=== PATIENT | female | born 1945 | race Hispanic/Latino ===

== ENCOUNTER 2018-06-26 18:22 | Emergency (ER) | payer MEDICARE ==
--- NOTE | 2018-06-26 19:26 | RAD ---
STERNUM TWO VIEWS: History: Fall. Pain. Comparison: None. FINDINGS: No obvious displaced sternal fracture. IMPRESSION: No obvious displaced sternal fracture. POS: [facility]
[2018-06-26 19:34] LABS: #Eosinphils 0.3 thou/uL (0.0-0.7); #Monocytes 0.5 thou/uL (0.11-0.59); #Neutrophils 5.1 thou/uL (1.40-6.50); %Basophils 0.6 % (0.0-1.0); %Eosinophils 3.2 % (0.0-10.0); %Lymphocytes 25.6 % (21.0-51.0); %Monocytes 6.6 % (0.0-10.0); Hemoglobin 13.4 g/dL (12.0-16.0); Mean Corpuscular HGB CONC 35.2 g/dL (32.0-36.0); Mean Corpuscular Hemoglobin 32.1 pg (27.0-31.0); Mean Corpuscular Volume 91.3 fL (78.0-98.0); Mean Platelet Volume 10.9 fL (7.4-10.4); Platelet Count 214 thou/uL (130-400); RBC Distribution Width 11.7 % (11.5-14.5); Red Blood Cell (RBC) Count 4.19 mill/uL (4.20-5.40); White Blood Cell (WBC) Count 7.9 thou/uL (4.8-10.8)
--- NOTE | 2018-06-26 19:52 | RAD ---
CHEST ONE VIEW RIGHT RIBS THREE VIEWS: History: Fall. Pain. FINDINGS: ONE VIEW CHEST: Normal cardiac silhouette. Atherosclerosis of the aorta. Pulmonary vessels and hilum are normal. Cost ophrenic angles are clear. No consolidation or mass. No pneumothorax or osseous abnormalities. RIGHT RIB SERIES: No fracture. No cortical irregularity of periosteal reaction. IMPRESSION: 1. No right rib fracture. 2. No acute cardiopulmonary process. POS: [facility]
[2018-06-26 19:56] LABS: ALT (SGPT) 18 U/L (8-55); AST (SGOT) 14 U/L (5-34); Albumin 4.1 g/dL (3.4-4.8); Alkaline Phosphatase 83 U/L (40-150); Anion Gap 16 mmol/L (10-20); BUN (Urea Nitrogen) 25 mg/dL (9.8-20.1); Bilirubin, Total 0.7 mg/dL (0.2-1.2); Calc. Creatinine Clearance 0 mL/min (70-130); Calcium 10.1 mg/dL (7.8-10.44); Carbon Dioxide 20 mmol/L (23-31); Chloride 104 mmol/L (98-107); Estimated GFR-MDRD 39; Globulin 3.8 g/dL (2.4-3.5); Glucose 357 mg/dL (83-110); Potassium 4.1 mmol/L (3.5-5.1); Protein, Total 7.9 g/dL (6.0-8.3); Sodium 136 mmol/L (136-145)
[2018-06-26 19:59] LABS: CKMB 1.6 ng/mL (0-6.6); Troponin I Less than 0.010 ng/mL (< 0.028)
[2018-06-26] MEDS ORDERED: HYDROcodone/Acetaminophen 10/325 mg Tablet ONE (20:13)
== END 2018-06-26 20:23 | disposition home or self-care (01) ==
LOC: ERS 18:22
DX: S20.211A Contusion of right front wall of thorax, initial encounter (principal); E11.9 Type 2 diabetes mellitus without complications; I10 Essential (primary) hypertension; E78.5 Hyperlipidemia, unspecified; Z79.4 Long term (current) use of insulin; Z79.899 Other long term (current) drug therapy; W01.0XXA Fall on same level from slipping, tripping and stumbling without subsequent striking against object, initial encounter
CPT/HCPCS: 36415; 71120; 80053; 82553; 84484; 85025; 93005

== ENCOUNTER 2018-07-29 15:59 | Emergency (ER) | payer MEDICARE ==
[2018-07-29 16:25] LABS: #Eosinphils 0.2 thou/uL (0.0-0.7); #Lymphocytes 2.5 thou/uL (1.20-3.40); #Monocytes 0.6 thou/uL (0.11-0.59); %Basophils 0.4 % (0.0-1.0); %Eosinophils 1.4 % (0.0-10.0); %Lymphocytes 22.4 % (21.0-51.0); %Monocytes 5.2 % (0.0-10.0); %Neutrophils 70.6 % (42.0-75.0); Hemoglobin 14.9 g/dL (12.0-16.0); Mean Corpuscular HGB CONC 34.2 g/dL (32.0-36.0); Mean Corpuscular Hemoglobin 31.2 pg (27.0-31.0); Mean Corpuscular Volume 91.3 fL (78.0-98.0); Mean Platelet Volume 10.9 fL (7.4-10.4); Platelet Count 228 thou/uL (130-400); RBC Distribution Width 11.7 % (11.5-14.5); Red Blood Cell (RBC) Count 4.77 mill/uL (4.20-5.40); White Blood Cell (WBC) Count 11.3 thou/uL (4.8-10.8)
[2018-07-29] MEDS ORDERED: Ondansetron PF 4 MG/2 ML Vial ONE (16:46)
[2018-07-29] MEDS ORDERED: Ondansetron ODT 4 MG TAB ONE (16:46)
[2018-07-29 16:47] LABS: ALT (SGPT) 16 U/L (8-55); AST (SGOT) 13 U/L (5-34); Albumin 4.4 g/dL (3.4-4.8); Alkaline Phosphatase 102 U/L (40-150); Anion Gap 18 mmol/L (10-20); BUN (Urea Nitrogen) 25 mg/dL (9.8-20.1); Calc. Creatinine Clearance 0 mL/min (70-130); Calcium 10.7 mg/dL (7.8-10.44); Carbon Dioxide 19 mmol/L (23-31); Chloride 103 mmol/L (98-107); Estimated GFR-MDRD 34; Glucose 341 mg/dL (83-110); Potassium 4.1 mmol/L (3.5-5.1); Protein, Total 8.4 g/dL (6.0-8.3); Sodium 136 mmol/L (136-145)
--- NOTE | 2018-07-29 18:17 | RAD ---
CHEST ONE VIEW: 07/29/18 HISTORY: Nausea. Vomiting. COMPARISON: 06/26/18. FINDINGS: Portable upright chest: Normal cardiac silhouette. The pulmonary vessels and hilum are normal. Costophrenic angles are clear. No mass. No consolidation. No pneumothorax or osseous abnormalities. IMPRESSION: No acute cardiopulmonary process. POS: [facility]
[2018-07-29 19:19] LABS: Bilirubin Small (Negative); Blood, Urine Negative (Negative); Clarity CLEAR (Clear); Glucose, Urine (Dipstick) >=1000 mg/dL (Negative); Leukocyte Negative (Negative); Nitrite Negative (Negative); Protein, Urine (Dipstick) 100 mg/dL (Neg-Trace); Specific Gravity, Urine 1.035 (1.002-1.036); Urobilinogen 0.2 mg/dL (0.2-1.0)
[2018-07-29 19:21] LABS: Bacteria/HPF Rare-Few HPF (None Seen); Hyaline Casts/LPF 4-6 HYALINE CAST LPF (0-3 Hyaline); Pathc Cast-AUWi Flag 1.01 (0-2.49); WBC/HPF 21-50 HPF (0-3)
--- NOTE | 2018-07-29 19:31 | CT ---
CT ABDOMEN AND PELVIS WITH IV CONTRAST: 07/29/2018 HISTORY: Abdominal pain, nausea, vomiting, and diarrhea. COMPARISON: None available. FINDINGS: There is mild bibasilar atelectasis and multiple punctate densities, which appear to represent multip le punctate calcified granulomata. There is mild diminished attenuation of the liver, relative to the spleen. While this is overall non specific on a post contrasted exam, this may represent mild fatty infiltration of the liver. Calcified granulomata are seen in the spleen. The common duct is dilated, measuring approximately 1.5 cm. This may be related to reservoir effect, secondary to post cholecystectomy changes, but this is more dilated than typically expected. No grimes creatic head mass is appreciated on this examination. The bilateral adrenal glands, kidneys, and decompressed urinary bladder demonstrate a grossly normal nonenhanced CT appearance. There is evidence of a prior hysterectomy. There is a punctate calcification in the region of the left renal hilum, best seen on the coronal walker ges, and this is felt to be related to vascular calcification, as opposed to a renal calculus. The appendix is not visualized, but there are no secondary signs to suggest appendicitis. Vascular calcifications are seen in the abdominal aorta and involving the iliac arteries. No free fluid, fluid collection, or lymphadenopathy is seen in the abdomen or pelvis. Multilevel degenerative changes are seen in the lower thoracic, as well as lumbar spine, with degener ative changes at the pubic symphysis. IMPRESSION: 1. Mild fatty infiltration of the liver. The liver is also mildly enlarged in craniocaudal dimensio ns, measuring approximately 18 cm. 2. Dilatation of the extrahepatic common duct, likely attributable to reservoir effect from prior ch olecystectomy, but this is more dilated than typically expected, measuring 1.5 cm in diameter. Endos copic retrograde cholangiopancreatography versus magnetic resonance cholangiopancreatography may be h elpful for further evaluation, if clinically indicated. 3. Normal caliber loops of small bowel without evidence of a bowel obstruction. 4. Hysterectomy. 5. Prominent vascular calcifications. POS: [facility]
[2018-07-29] MEDS ORDERED: Acetaminophen 500 MG TAB ONE (20:17)
--- NOTE | 2018-07-29 20:50 | ULT ---
GALLBLADDER ULTRASOUND: 07/29/18 HISTORY: Nausea and vomiting. COMPARISON: None. TECHNIQUE: Utilizing multihertz transducer, sonographic imaging of the right upper quadrant is performed in the longitudinal and transverse plane. FINDINGS: Evaluation is limited by nonfasting state as well as due to body habitus. Suboptimal evaluation of the pancreas. Gallbladder appears to be surgically absent. Increased echogenicity of the liver likely due to hepatic steatosis. Limited evaluation of hepatic ma sses and intrahepatic biliary dilatation. Common bile duct is dilated measuring 1.6 cm. Findings are compatible with reservoir effect in a pat ient who has had a previous cholecystectomy. Grossly, no hydronephrosis. Suboptimal evaluation of the right kidney. Maximum dimension of the right kidney is 11.5 cm. IMPRESSION: 1. Limited evaluation. 2. Dilated common bile duct compatible with patient's history of cholecystectomy with resultant reservoir effect of the common bile duct. POS: [facility]
== END 2018-07-29 21:35 | disposition home or self-care (01) ==
LOC: ERS 15:59
DX: E86.0 Dehydration (principal); N39.0 Urinary tract infection, site not specified; R11.2 Nausea with vomiting, unspecified; E11.9 Type 2 diabetes mellitus without complications; I10 Essential (primary) hypertension; E78.5 Hyperlipidemia, unspecified; Z79.4 Long term (current) use of insulin; Z79.899 Other long term (current) drug therapy
CPT/HCPCS: 36415; 71045; 74177; 76705; 80053; 81003; 81015; 82010; 85025; 87086; 96360; 96361; J2405; Q0162

== ENCOUNTER 2018-10-13 17:10 | Emergency (ER) | payer MEDICARE ==
[2018-10-13 18:43] LABS: Bilirubin Negative (Negative); Blood, Urine Negative (Negative); Clarity CLEAR (Clear); Glucose, Urine (Dipstick) >=1000 mg/dL (Negative); Leukocyte Negative (Negative); Nitrite Negative (Negative); Protein, Urine (Dipstick) Negative (Neg-Trace); Specific Gravity, Urine 1.033 (1.002-1.036); Urobilinogen 0.2 mg/dL (0.2-1.0)
== END 2018-10-13 19:13 | disposition home or self-care (01) ==
LOC: ERS 17:10
DX: N32.89 Other specified disorders of bladder (principal); E11.9 Type 2 diabetes mellitus without complications; I10 Essential (primary) hypertension; E78.5 Hyperlipidemia, unspecified
CPT/HCPCS: 81003; 87086; 99283

== ENCOUNTER 2019-03-28 09:42 | Day surgery (SDC) | payer MEDICARE ==
--- NOTE | 2019-03-27 09:23 | HP ---
Scheduled for surgery, 03/28/2019. HISTORY OF PRESENT ILLNESS: Ms. Gonzalez is a 73-year-old Latin-Martiniquais female G5, P4, A1, x4, with total hysterectomy in the past, who has been experiencing urinary incontinence. She had somewhat of a mixed urinary incontinence picture where she had both urge incontinence and stress incontinence. She had a urinalysis and a urine culture initially showed mild infection which was treated with Macrodantin with subsequent urine cultures being normalized. She has been placed on an anticholinergic, Toviaz 4 mg daily, which has improved her overactive bladder symptoms in control. She is though still plagued by urinary incontinence, which does have a strong stress incontinence component. She underwent a formal urodynamic study in October, showing her to have a postvoid residual which was normal at 25 mL. Her 1st sensation to void was at 2:26 and 2nd was at 2:45. She did leak with cough and Valsalva. During the procedure prior to being initiated on the anticholinergic with the leak, with Valsalva and coughing, she also had leakage, she was not able to control and continued to urinate. She had an excellent urethral pressure profile . She does wear a urinary incontinence pad daily. PAST MEDICAL HISTORY: Noted for diabetes mellitus and chronic hypertension. PAST SURGICAL HISTORY: Complete hysterectomy. She has also had reconstruction of the ankle joint, cholecystectomy, knee replacement, and a colonoscopy. SOCIAL HISTORY: She is a nonsmoker. No excessive alcohol use. ALLERGIES: SHE HAS NO KNOWN DRUG ALLERGIES. CURRENT MEDICATIONS: 1. Citalopram 10 mg tablet daily. 2. Humalog KwikPen subcu sliding scale for diabetes control. 3. She also uses Lantus 40 units subcu at bedtime. 4. Hydrochlorothiazide 25 mg tablet for hypertension. 5. Losartan 50 mg tablet daily. 6. Metformin 850 mg tablet one p.o. b.i.d. 7. She also uses methocarbamol 500 mg tablet t.i.d. p.r.n. back spasms. PHYSICAL EXAMINATION: VITAL SIGNS: The patient's height is 5 feet 4 inches, weight 291, BMI 49, blood pressure 140/82, pulse 80, respirations 18, O2 saturation on room air was 91%. HEENT: Within normal limits. CHEST: Clear to auscultation. HEART: Regular rate and rhythm. S1 and S2 heart sounds. No murmurs, rubs, gallops. ABDOMEN: Obese, soft, nontender. PELVIC: Vulva and vagina, there were no masses. Bladder and urethra had no abnormal discharge or mass. Normal meatus, and bladder was nondistended. Vagina, there was no tenderness or erythema. There was approximately a grade 2 cystocele with hypermobile urethra. Cervix and uterus were surgically absent. Adnexa, nontender with no masses. ASSESSMENT: This is a 73-year-old Latin-Martiniquais female with previous hysterectomy with obesity, with improved urinary incontinence from overactive component with Toviaz, anticholinergic. She has mixed incontinence with confirmation of stress incontinence on formal urodynamic testing. She has a grade 2 cystocele. PLAN: Plan is to proceed with an anterior repair with Advantage Fit TVT with cystoscopy. This is scheduled for March 28, 2019. Risks and benefits of procedure have been discussed in detail. She is set for surgery. Job ID: [id number]
[2019-03-27 11:38] LABS: Hemoglobin 12.8 g/dL (12.0-16.0); Mean Corpuscular HGB CONC 34.6 g/dL (32.0-36.0); Mean Corpuscular Hemoglobin 31.8 pg (27.0-31.0); Mean Corpuscular Volume 91.9 fL (78.0-98.0); Mean Platelet Volume 10.7 fL (7.4-10.4); Platelet Count 214 thou/uL (130-400); RBC Distribution Width 11.8 % (11.5-14.5); Red Blood Cell (RBC) Count 4.02 mill/uL (4.20-5.40); White Blood Cell (WBC) Count 8.7 thou/uL (4.8-10.8)
[2019-03-27 12:03] LABS: ALT (SGPT) 11 U/L (8-55); AST (SGOT) 10 U/L (5-34); Alkaline Phosphatase 64 U/L (40-150); Anion Gap 11 mmol/L (10-20); BUN (Urea Nitrogen) 23 mg/dL (9.8-20.1); Bilirubin, Total 0.9 mg/dL (0.2-1.2); Calc. Creatinine Clearance 0 mL/min (70-130); Calcium 10.2 mg/dL (7.8-10.44); Carbon Dioxide 25 mmol/L (23-31); Chloride 106 mmol/L (98-107); Estimated GFR-MDRD 52; Globulin 3.3 g/dL (2.4-3.5); Glucose 281 mg/dL (83-110); Potassium 4.1 mmol/L (3.5-5.1); Protein, Total 7.3 g/dL (6.0-8.3); Sodium 138 mmol/L (136-145)
[2019-03-28] MEDS ORDERED: Fentanyl 100 MCG/2 ML VIAL ONE (11:47)
[2019-03-28] MEDS ORDERED: Lidocaine 1% w/Epinephrine 1:100K 20 ML VIAL ONE (11:48)
[2019-03-28] MEDS ORDERED: Promethazine HCl 25 MG/ML VIAL IM PRN (13:25)
[2019-03-28] MEDS ORDERED: diphenhydrAMINE 25 MG CAP PO PRN (13:25)
[2019-03-28] MEDS ORDERED: Bisacodyl 10 MG SUPP PR PRN (13:25)
[2019-03-28] MEDS ORDERED: Dextrose 5% in Water 1,000 ML IV PRN (13:25)
[2019-03-28] MEDS ORDERED: Ondansetron PF 4 MG/2 ML Vial IVP PRN (13:25)
[2019-03-28] MEDS ORDERED: Dextrose 50% Abboject 50 ML SYRINGE SLOW IVP PRN (13:25)
[2019-03-28] MEDS ORDERED: traMADol HCl 50 MG TAB PO PRN (13:25)
[2019-03-28] MEDS ORDERED: Simethicone Chewable 80 MG TAB PO PRN (13:25)
[2019-03-28] MEDS ORDERED: Acetaminophen 325 MG TAB PO PRN (13:25)
[2019-03-28] MEDS ORDERED: Promethazine HCl 25 MG/ML VIAL ONE (13:46)
--- NOTE | 2019-03-28 15:01 | OP ---
DATE OF PROCEDURE: 03/28/2019 PREOPERATIVE DIAGNOSES: 1. A 73-year-old female, prior hysterectomy with mixed incontinence with both stress and urge incontinence. 2. Morbid obesity with a BMI of 49. 3. Adult-onset diabetes. POSTOPERATIVE DIAGNOSES: 1. A 73-year-old female, prior hysterectomy with mixed incontinence with both stress and urge incontinence. 2. Morbid obesity with a BMI of 49. 3. Adult-onset diabetes. PROCEDURE PERFORMED: Advantage Fit TVT with cystoscopy. ASSISTANTS: Sarah Guerrier DO and TERRI King. ANESTHESIA: General endotracheal. ESTIMATED BLOOD LOSS: Less than 25 mL. COMPLICATIONS: None. ANTIBIOTICS: 2 g Ancef to OR. PATHOLOGY: None. FINDINGS: 1. Cystoscopic evaluation of the bladder post TVT placement showed normal bladder mucosa with no evidence of mesh injury. 2. Clear urine present in Rashid catheter. 3. Minimal anterior vaginal wall defect of the upper vagina noted; therefore, no anterior repair performed. The patient has an asymptomatic enterocele. DISPOSITION: Recovery room, stable. DESCRIPTION OF PROCEDURE: The patient previously received informed consent in regard to surgery. She was taken back to the operating room, where she received a general endotracheal anesthetic agent without complications. She was placed in dorsal lithotomy position with use of Fab stirrups, prepped and draped in usual sterile fashion. Rashid catheter was placed at this time. An exam under anesthesia was performed. There was no significant anterior cystocele noted; therefore, anterior repair was not performed after further evaluation in anesthetic state. A curved Bree was placed in the posterior vagina, and my assistants were at the sides of the bed, retracting the labia of the patient's medial thighs away from the operative site. Rashid catheter had been placed, and I palpated the bulb and located the mid urethra. Two Allis clamps were placed superiorly and inferiorly to this area. Approximately 60 mL of sterile saline was then injected with a spinal needle suprapubically. 1% lidocaine with epinephrine was then injected in the vaginal mucosa submucosally bilaterally in the direction of the vaginal mucosa towards the junction of the inferior pubic ramus and symphysis pubis bilaterally over the vaginal mucosa of the mid urethra. An incision on the mid urethra area of the vaginal mucosa was made with a scalpel 1.5 cm. The edges were grasped with 2 Allis clamps. I then the located the direction of the inferior pubic ramus along with the mons pubis, and I used the Metzenbaum scissors to dissect submucosally in the vaginal mucosa towards the junction of the inferior pubic ramus and symphysis pubis popping into the space of Retzius bilaterally. Prior to this, the mons area was marked with a marker of approximately 2 cm lateral from the midpoint of the urethra for further target points for exiting of the Advantage Fit TVT trocars. The Advantage Fit TVT trocar was assembled along with the mesh and loading. On the left, this was first initially placed on the left side of the patient and a guidewire was placed in the Rashid to deflect the bladder to the opposite side of the left to the patient's right to protect the bladder during placement of the trocar. The trocar was guided through the previously dissected pass, and then the handle was dropped in direction of the floor, allowing the curves of the Advantage Fit TVT trocar to rock behind the symphysis pubis and then into the previous marked site 2 cm lateral to mid portion of the urethra. My transition assistant palpated the passage of the point with the trocar and confirming proper placement. This was popped through the skin, and the plastic point of the mesh was grasped with a Alison clamp. The trocar limo driver was then removed. This was then repeated on the patient's right side in similar fashion. The guidewire again deflecting the bladder to the opposite side of the patient's left. A Rashid was then removed, and then the cystoscopy 70-degree scope was utilized to examine the bladder. The bladder was distended with sterile saline, and the bladder mucosa was inspected. There was no evidence of trocar entry or mesh placement in the bladder mucosa seen. Then, the cysto was removed. Alcocer scissors was then placed underneath the TVT mesh. The TVT mesh was aligned appropriately and was not twisted. Then, my assistants pulled evenly on both sides, leaving some tension free to just around the Alcocer scissor and the ends of the tag was cut and then the plastic component of the TVT mesh sheaths were removed. The mesh had been snugly fit up against the Alcocer scissor just below the mid urethra. Then, the Alcocer scissor was removed. The vaginal mucosa was closed over the midportion of the urethra area with running 2-0 Vicryl suture closing the mesh off and securing hemostasis. There was no excessive bleeding noted, so therefore vaginal packing placed. The trocar exit sites were then closed with Dermabond suture. Rashid catheter was reconnected and clear urine was draining from the Rashid. The patient was awakened from anesthesia, transferred to recovery room in stable condition. Job ID: [id number]
[2019-03-28] MEDS ORDERED: PROPOFOL 200 MG/20 ML VIAL ONE (15:07)
[2019-03-28] MEDS ORDERED: Succinylcholine Chloride 20 MG/ML 10 ml SYRINGE FS ONE (15:07)
[2019-03-28] MEDS ORDERED: Rocuronium Bromide 10 MG/ML (10ML VIAL) ONE (15:07)
[2019-03-28] MEDS ORDERED: Glycopyrrolate 0.2 MG/ML 5 ML SYRINGE ONE (15:07)
[2019-03-28] MEDS: Ibuprofen 600 MG TAB PO SCH ×2 (16:39→21:57)
[2019-03-28 16:56] VITALS: BMI 48.6
[2019-03-28] MEDS ORDERED: Labetalol HCl 100 MG/20 ML VIAL SLOW IVP PRN (18:57)
[2019-03-28] MEDS: HumaLOG 300 UNITS/3 ML VIAL SC PRN ×2 (19:13→21:58)
[2019-03-28] MEDS: Morphine 2 MG/ML SYRINGE SLOW IVP PRN (20:05)
[2019-03-28] MEDS: Insulin Glargine 20 UNITS in Pre-Filled Syringe 1 EACH SC SCH (21:57)
[2019-03-29] MEDS: Morphine 2 MG/ML SYRINGE SLOW IVP PRN (02:43)
[2019-03-29] MEDS: HumaLOG 300 UNITS/3 ML VIAL SC PRN ×3 (05:43→17:12)
[2019-03-29] MEDS: Ibuprofen 600 MG TAB PO SCH ×3 (05:43→22:28)
[2019-03-29 06:01] LABS: Hemoglobin 10.7 g/dL (12.0-16.0); Mean Corpuscular HGB CONC 34.1 g/dL (32.0-36.0); Mean Corpuscular Hemoglobin 31.8 pg (27.0-31.0); Mean Corpuscular Volume 93.1 fL (78.0-98.0); Mean Platelet Volume 10.8 fL (7.4-10.4); Platelet Count 171 thou/uL (130-400); RBC Distribution Width 11.7 % (11.5-14.5); Red Blood Cell (RBC) Count 3.37 mill/uL (4.20-5.40); White Blood Cell (WBC) Count 10.7 thou/uL (4.8-10.8)
[2019-03-29] MEDS: metFORMIN 850 MG TAB PO SCH ×2 (08:35→17:12)
[2019-03-29] MEDS: Losartan 25 MG TAB PO SCH (08:35)
[2019-03-29] MEDS: traMADol HCl 50 MG TAB PO PRN ×2 (08:36→14:08)
[2019-03-29] MEDS: Escitalopram Oxalate 10 mg Tablet PO SCH ×2 (08:36→21:47)
[2019-03-29] MEDS: HumaLOG 300 UNITS/3 ML VIAL SC SCH (17:15)
[2019-03-29] MEDS ORDERED: Furosemide 20 MG/2 ML VIAL SLOW IVP SCH (19:45)
[2019-03-29] MEDS: Lactated Ringer's 1,000 ML IV SCH (19:49)
[2019-03-29] MEDS: Insulin Glargine 20 UNITS in Pre-Filled Syringe 1 EACH SC SCH (21:48)
[2019-03-30 04:49] LABS: Hemoglobin 10.4 g/dL (12.0-16.0); Mean Corpuscular HGB CONC 32.7 g/dL (32.0-36.0); Mean Corpuscular Hemoglobin 30.7 pg (27.0-31.0); Mean Corpuscular Volume 93.9 fL (78.0-98.0); Mean Platelet Volume 10.6 fL (7.4-10.4); Platelet Count 163 thou/uL (130-400); RBC Distribution Width 11.9 % (11.5-14.5); Red Blood Cell (RBC) Count 3.38 mill/uL (4.20-5.40); White Blood Cell (WBC) Count 8.4 thou/uL (4.8-10.8)
[2019-03-30] MEDS: HumaLOG 300 UNITS/3 ML VIAL SC PRN (06:13)
[2019-03-30] MEDS: Ibuprofen 600 MG TAB PO SCH (06:14)
[2019-03-30 07:38] LABS: Anion Gap 10 mmol/L (10-20); BUN (Urea Nitrogen) 27 mg/dL (9.8-20.1); Calc. Creatinine Clearance 85 mL/min (70-130); Carbon Dioxide 23 mmol/L (23-31); Chloride 106 mmol/L (98-107); Estimated GFR-MDRD 43; Glucose 176 mg/dL (83-110); Potassium 4.4 mmol/L (3.5-5.1); Sodium 135 mmol/L (136-145)
--- NOTE | 2019-03-30 08:23 | PDOC.EVN ---
Event Note - Event Note Event Note: Feels well. No nausea. Ambulating. No flank pain. Voided 300 ml of 400 ml instilled fluid this AM. O: 111/59 P74 97.8% U/O :1050 ml past 24 hours. ABD soft and non distended. No CVAT. BMP BUN 27/ CR 1.22 this AM. Electrolytes wnl. Received 20 mg lasix last pm. Creatinine pre op was 1.04. Chart reviewed-no NSAIDS given... A/P post op day 2 from Advantage Fit tvt. Urine out put some what borderline past 24 hours. Received lasix IV wchich patient takes lasix 20 mg po prn swelling. Void ing trial this AM was satisfactory. Voided 300 ml with 100 ml residual.. Will check renal u/s to rule out any possible obstructive uropathy from tvt placement...patient clinically appears well.
[2019-03-30 08:28] VITALS: BP 159/66; TEMP 97.6
--- NOTE | 2019-03-30 09:36 | ULT ---
BILATERAL RENAL ULTRASOUND COMPLETE: HISTORY: The patient has diabetes. Status post TVT. Concern for hydronephrosis. FINDINGS: The right kidney measures 12.1 x 5.9 x 5.4 cm. The left kidney measures 9.8 x 6.8 x 6.0 cm. No evidence for renal hydronephrosis. No perinephric process. Visualized bladder is unremarkable. IMPRESSION: Unremarkable bilateral renal ultrasound. No hydronephrosis. POS: [facility]
[2019-03-30] MEDS: Escitalopram Oxalate 10 mg Tablet PO SCH (09:38)
[2019-03-30] MEDS: metFORMIN 850 MG TAB PO SCH ×2 (09:38→11:12)
[2019-03-30] MEDS: HumaLOG 300 UNITS/3 ML VIAL SC SCH (09:38)
[2019-03-30] MEDS: Lactated Ringer's 1,000 ML IV SCH (09:38)
[2019-03-30] MEDS: Losartan 25 MG TAB PO SCH ×2 (09:38→11:16)
--- NOTE | 2019-03-31 05:47 | DIS ---
DATE OF ADMISSION: 03/28/2019 DATE OF DISCHARGE: 03/30/2019 DIAGNOSES: 1. Urinary incontinence with female genuine stress incontinence. 2. Comorbid history is chronic hypertension, morbid obesity. 3. Adult onset diabetes. PROCEDURES PERFORMED: 1. Advantage fit TVT with cystoscopy. 2. Renal ultrasound. SUMMARY OF HOSPITAL COURSE: Ms. Beasley is a 73-year-old Latin-Scottish female with prior hysterectomy and is having mixed urinary incontinence issues. She has been managed with Toviaz anticholinergic for the urge incontinence, which did improve her symptoms, but she continued to have stress related urinary incontinence. She had a formal urodynamic studies in my office prior to this showing her having normal postvoid residual of 25 mL with the loss of urine documented with Valsalva. She also had some spontaneous loss of urine triggered by urge. She desired surgical intervention due to the need for wearing a pad daily for urinary incontinence. She underwent an Advantage Fit TVT with cysto on 03/28. Postoperatively, she began bladder training on the postop day #1. She had borderline urinary output, which is going to inhibit some of the training due to inadequate amount of urine production to actually test her voids. Her initial void though have showed her to void 50 mL with 300 residuals late afternoon of postop day #1. We reinserted the Rashid catheter to monitor her urinary output. She did receive Lasix 20 mg the evening of postop day #1 to the fact that she would use this intermittently for lower extremity edema. In the morning of postop day #2, she had a basement recheck which her baseline creatinine preop was 1.04 and her repeat was 1.22. She had made approximately 1050 mL of urine in the past 24 hours. Due to the nature of the procedure, a renal ultrasound was performed to rule out any obstructive uropathy. Bilateral renal ultrasound showed no evidence of hydronephrosis, normal-appearing kidneys, and no evidence of any bladder concerns on renal ultrasound. The patient then had started voiding more urine and is having adequate void of 250-300 with less than 100 mL of postvoid residuals. Plan now is to discharge home. She was given a prescription for tramadol 50 mg q.6 hours p.r.n. pain. She has a followup in 2 and 6 weeks. To continue hydration and recheck basement at that time if she had any concerns. She resume her usual maintenance medications for her diabetes and chronic hypertension. Job ID: [id number]
== END 2019-03-30 11:15 | disposition home or self-care (01) ==
LOC: SDC 09:42 → 3SE 13:25 → SDC 03-30 11:15
PROVIDERS: ATTEND Obstetrics & Gynecology
PROC: 0TSC0ZZ Reposition Bladder Neck, Open Approach (ICD-10-PCS; principal; 2019-03-28)
DX: N39.46 Mixed incontinence (principal); N32.81 Overactive bladder; N81.5 Vaginal enterocele; I10 Essential (primary) hypertension; E11.9 Type 2 diabetes mellitus without complications; E66.01 Morbid (severe) obesity due to excess calories; Z68.42 Body mass index [BMI] 45.0-49.9, adult; Z79.4 Long term (current) use of insulin; Z79.899 Other long term (current) drug therapy; Z90.710 Acquired absence of both cervix and uterus
CPT/HCPCS: 57288; 76770; 80048; 80053; 82962; 85027 ×2; 86850; 86900; 86901; C1781; 36415; 36416; J0690; J1815; J1940; J2001; J2270; J2405; J2550; J2704; J3010

== ENCOUNTER 2019-04-01 11:05 | Inpatient (IN) | payer MEDICARE ==
--- NOTE | 2019-04-01 11:47 | RAD ---
2 VIEWS CHEST: Date: 04/01/19 COMPARISON: 07/29/18. HISTORY: Shortness of breath. FINDINGS: There is mild diffuse increased linear interstitial density. No pneumothorax or pleural fluid. No foc al consolidation or alveolar edema. Cardiac silhouette appears enlarged. IMPRESSION: Prominent cardiac silhouette with pulmonary vascular congestion. No lobar consolidation or alveolar e uri. A mild degree of interstitial edema is a possibility. POS: [facility]
[2019-04-01 12:38] LABS: #Eosinphils 0.3 thou/uL (0.0-0.7); #Lymphocytes 1.6 thou/uL (1.20-3.40); #Monocytes 0.7 thou/uL (0.11-0.59); #Neutrophils 6.3 thou/uL (1.40-6.50); %Basophils 0.1 % (0.0-1.0); %Lymphocytes 18.3 % (21.0-51.0); %Monocytes 8.1 % (0.0-10.0); %Neutrophils 70.5 % (42.0-75.0); Hemoglobin 11.4 g/dL (12.0-16.0); Mean Corpuscular HGB CONC 34.8 g/dL (32.0-36.0); Mean Corpuscular Hemoglobin 32.3 pg (27.0-31.0); Mean Corpuscular Volume 92.8 fL (78.0-98.0); Mean Platelet Volume 10.2 fL (7.4-10.4); Platelet Count 182 thou/uL (130-400); RBC Distribution Width 11.9 % (11.5-14.5); Red Blood Cell (RBC) Count 3.52 mill/uL (4.20-5.40); White Blood Cell (WBC) Count 8.9 thou/uL (4.8-10.8)
[2019-04-01] MEDS ORDERED: ISOVUE-370 76%-LOCM 1 ML ONE (12:57)
[2019-04-01 13:04] LABS: ALT (SGPT) 42 U/L (8-55); AST (SGOT) 17 U/L (5-34); Albumin 3.9 g/dL (3.4-4.8); Alkaline Phosphatase 81 U/L (40-150); Anion Gap 13 mmol/L (10-20); BUN (Urea Nitrogen) 17 mg/dL (9.8-20.1); Bilirubin, Total 1.2 mg/dL (0.2-1.2); Calc. Creatinine Clearance 0 mL/min (70-130); Calcium 9.5 mg/dL (7.8-10.44); Carbon Dioxide 22 mmol/L (23-31); Chloride 106 mmol/L (98-107); Estimated GFR-MDRD 62; Globulin 2.6 g/dL (2.4-3.5); Glucose 195 mg/dL (83-110); Potassium 4.1 mmol/L (3.5-5.1); Protein, Total 6.5 g/dL (6.0-8.3); Sodium 137 mmol/L (136-145)
--- NOTE | 2019-04-01 14:41 | CT ---
CT angiogram chest with 3-D rendering: HISTORY: Shortness of breath, elevated d-dimer There is minimal cardiomegaly. Mild vascular congestion and possible mild interstitial edema and some diffuse subtle groundglass opacity changes in both lungs. Multiple small calcified granulomata. 0.5 cm diameter subpleural nodule in the right lower lobe. Small bilateral pleural effusions. 3 vesse l coronary artery calcific disease. No convincing CT evidence for acute pulmonary embolism. No pericardial effusion. Visualized upper abdomen is unremarkable. No mediastinal mass or adenopathy. IMPRESSION: No convincing CT evidence for acute pulmonary embolism. Small bilateral pleural effusions with vascul ar congestion and possibly mild edema with cardiomegaly. 0.5 cm diameter subpleural nodule in the right lower lobe.
[2019-04-01] MEDS ORDERED: Furosemide 40 MG/4 ML VIAL ONE (15:16)
[2019-04-01] MEDS ORDERED: Aspirin 325 MG TAB ONE (15:16)
[2019-04-01] MEDS ORDERED: Nitroglycerin 2% Ointment 1 INCH/1 GM Packet ONE (15:16)
[2019-04-01 15:28] LABS: Bacteria/HPF None Seen HPF (None Seen); Bilirubin Negative (Negative); Blood, Urine 1+ (Negative); Clarity Clear (Clear); Glucose, Urine (Dipstick) 70 mg/dL (Negative); Leukocyte 75 Leu/uL (Negative); Nitrite Negative (Negative); Protein, Urine (Dipstick) 10 mg/dL (Neg-Trace); Squamous Epithelial 0-3 HPF (0-3); Urobilinogen Normal mg/dL (Less than 2)
[2019-04-01] MEDS ORDERED: Dextrose 50% Abboject 50 ML SYRINGE SLOW IVP PRN (16:13)
[2019-04-01] MEDS ORDERED: Acetaminophen 325 MG TAB PO PRN (16:13)
[2019-04-01] MEDS ORDERED: Dextrose 5% in Water 1,000 ML IV PRN (16:13)
[2019-04-01] MEDS ORDERED: Ondansetron PF 4 MG/2 ML Vial IVP PRN (16:13)
[2019-04-01] MEDS ORDERED: hydrALAZINE 20 MG/ML VIAL SLOW IVP PRN (16:16)
[2019-04-01 17:17] LABS: Troponin I Less than 0.010 ng/mL (< 0.028)
[2019-04-01 20:09] LABS: Troponin I Less than 0.010 ng/mL (< 0.028)
[2019-04-01] MEDS: Insulin Glargine 20 UNITS in Pre-Filled Syringe SC SCH (21:43)
[2019-04-01] MEDS: Carvedilol 3.125 MG TAB PO SCH (21:44)
[2019-04-01] MEDS: Nitroglycerin 2% Ointment 1 INCH/1 GM Packet TOP SCH (21:44)
[2019-04-01 22:02] VITALS: BMI 49.7
--- NOTE | 2019-04-01 22:12 | HP ---
CHIEF COMPLAINT: Shortness of breath. HISTORY OF PRESENT ILLNESS: The patient is a 73-year-old female, who is admitted to the hospital with a sudden onset of shortness of breath started at 10:00 p.m. last night. She was not able to even sit. She could not find any good position. It was worse when she was even getting up and walking. She denied any chest pain. She denied any cough. No fever. No chills. No clammy skin. No nausea. Vomiting x1. Some abdominal cramps. No diarrhea. Apparently, she was just discharged from the hospital, where she spent 4 days after the bladder suspension surgery by Dr. Crespo, and apparently, there was a problem, she could not urinate much, so she was given IV fluids, most likely a lot, and she was given Lasix, finally she started urinating. After she left the hospital, she went home, she was able to urinate without any major problems. PAST MEDICAL HISTORY: Positive for, 1. Diabetes mellitus, type 2. 2. Hypertension. 3. Hyperlipidemia. PAST SURGICAL HISTORY: 1. Appendectomy. 2. Cholecystectomy. 3. Hysterectomy. 4. Bilateral knee surgery. 5. Tonsillectomy. 6. Bladder lift. 7. Left ankle reconstruction. SOCIAL HISTORY: She denies any alcohol intake, cigarette smoking, or use any illicit drugs. Surrogate decision maker is the patient's , Mr. Manuel Gonzalez, and primary care physician is out of town in [place]. FAMILY HISTORY: Her mother had CVA and she passed at the age of 69. She did not know her father well. MEDICATIONS: Lexapro 25 mg once a day, metformin 850 mg twice a day, insulin Lantus 20 units at bedtime, losartan 25 mg once a day. ALLERGIES: NONE. REVIEW OF SYSTEMS: All 14 systems were reviewed and they were negative except for those symptoms which are mentioned in HPI. PHYSICAL EXAMINATION: VITAL SIGNS: Her blood pressure is 191/72, pulse is 63, respiratory rate is 24, pulse oximetry is 99% on 3 L by nasal cannula. GENERAL: She is obese. HEENT: Her head is atraumatic and normocephalic. Eyes are PERRLA. Sclerae are nonicteric. Oral mucosa is slightly dry. NECK: Supple. JVD plus. LUNGS: Breath sounds diminished at both bases with harsh breath sounds at both bases. No wheezing. No rales. HEART: S1 and S2 normal. No S3. No S4. There is a systolic murmur mostly audible at the left sternal border 2/6. ABDOMEN: Obese, mildly tender in the epigastric area across. No guarding. No masses. EXTREMITIES: 2+ peripheral edema similar bilaterally on both lower extremities below the knees. No any other discolorations. Pulses are palpable, although diminished secondary to swelling. NEUROLOGICAL: She is alert and oriented x4. There is no any motor or sensory deficit present. Cranial nerves are intact. LABORATORY DATA: White count of 8.9, hemoglobin 11.4, hematocrit 32.7, platelet count is 182,000. D-dimer is 1.11. Sodium 137, potassium 4.1, chloride 106, CO2 of 22, BUN 17, creatinine 0.89, GFR estimated at 62, glucose 195. BNP 590.1. Troponin I is 0.018, and the rest of chemistry within normal limits. Urinalysis showed 70 glucose, 1+ blood, 75 of leucocytes esterases, 7 to 10 rbc's, 7 to 10 wbc's, no bacteria. EKG, normal sinus rhythm, no ischemic changes. This was personally reviewed by me. Chest x-ray, personally reviewed by me, showed increased interstitial markings and vascular congestion along with some cardiomegaly. CT angiogram of the chest, personally reviewed by me, showed bilateral small pleural effusions and vascular congestion and cardiomegaly. There was 0.5 cm diameter subpleural nodule in the right lower lobe. IMPRESSION: 1. New onset congestive heart failure. 2. Diabetes mellitus, type 2. 3. Small 0.5 cm nodule in the right lung to be followed. 4. Hyperlipidemia. 5. Hypertension. 6. Morbid obesity. 7. Status post recent urinary bladder lift surgery. PLAN: Plan is full admission to telemetry. Condition is fair. Activity is bedrest and privilege to the bathroom. Input and output, strict. IV Hep-Lock. Lasix 40 mg IV push twice a day. Echocardiogram. Two additional sets of troponins. Accu-Cheks a.c. and at bedtime and coverage with mild sliding scale with Humalog. Nitroglycerin paste 1 inch twice a day, aspirin 325 mg once a day. Continue home medications, which is ARB, losartan 25 mg once a day, Lexapro 25 mg once a day. We are going to hold metformin, and we will continue Lantus 20 units at bedtime, and we will do DVT prophylaxis with Lovenox 40 mg subcutaneously every 24 hours. Job ID: [id number]
[2019-04-02] MEDS: Furosemide 40 MG/4 ML VIAL SLOW IVP SCH ×2 (05:20→15:06)
[2019-04-02 06:15] LABS: Anion Gap 12 mmol/L (10-20); BUN (Urea Nitrogen) 18 mg/dL (9.8-20.1); Calc. Creatinine Clearance 94 mL/min (70-130); Calcium 9.6 mg/dL (7.8-10.44); Carbon Dioxide 26 mmol/L (23-31); Chloride 102 mmol/L (98-107); Estimated GFR-MDRD 49; Glucose 176 mg/dL (83-110); Sodium 136 mmol/L (136-145)
[2019-04-02] MEDS ORDERED: Sodium Chloride 0.9% 10 ML ONE ×2 (08:54→14:32)
[2019-04-02] MEDS: Nitroglycerin 2% Ointment 1 INCH/1 GM Packet TOP SCH ×2 (09:25→20:47)
[2019-04-02] MEDS: Aspirin 325 MG TAB PO SCH (09:25)
[2019-04-02] MEDS: Losartan 25 MG TAB PO SCH (09:26)
[2019-04-02] MEDS: Carvedilol 3.125 MG TAB PO SCH ×2 (09:26→17:25)
[2019-04-02] MEDS: Enoxaparin Sodium 40 MG/0.4 ML SYRINGE SC SCH (09:26)
[2019-04-02] MEDS: Escitalopram Oxalate 20 mg Tablet PO SCH (09:28)
[2019-04-02] MEDS: HumaLOG 300 UNITS/3 ML VIAL SC PRN ×3 (09:33→17:27)
--- NOTE | 2019-04-02 15:20 | PDOC.HOSPP ---
- Subjective Encounter Date: 04/02/19 Encounter Time: 15:18 Subjective: Continued SOB requiring NC - Objective Vital Signs & Weight: Vital Signs (12 hours) Temp Pulse Resp BP BP BP BP 04/02/19 12:36 100 F H 63 20 144/67 H 04/02/19 09:00 153/67 H 04/02/19 08:00 97.8 F 96 18 182/79 H 04/02/19 05:24 63 180/78 H 04/02/19 04:30 97.4 F L 63 18 180/78 H Pulse Ox 04/02/19 12:36 94 L 04/02/19 09:00 04/02/19 08:00 97 04/02/19 05:24 04/02/19 04:30 95 Weight Weight 289 lb 15.937 oz I&O: 04/01/19 04/02/19 04/03/19 06:59 06:59 06:59 Intake Total 250 240 Balance 250 240 Result Diagrams: 04/01/19 12:30 04/02/19 05:43 Additional Labs: Accuchecks 04/02/19 04/02/19 04/01/19 11:19 05:30 20:36 POC Glucose 273 H 182 H 276 H Hospitalist ROS - Medication Medications: Active Medications Generic Name Dose Route Start Last Admin Trade Name Rory PRN Reason Stop Dose Admin Acetaminophen 650 mg 04/01/19 16:13 04/02/19 05:24 Tylenol PO 650 mg Q4H PRN Administration Headache/Fever/Mild Pain (1-3) Aspirin 325 mg 04/02/19 09:00 04/02/19 09:25 Aspirin PO 325 mg DAILY BETTY Administration Carvedilol 3.125 mg 04/01/19 17:00 04/02/19 09:26 Coreg PO 3.125 mg BID-WM BETTY Administration Enoxaparin Sodium 40 mg 04/02/19 09:00 04/02/19 09:26 Lovenox SC 40 mg 0900 BETTY Administration Escitalopram Oxalate 20 mg 04/02/19 09:00 04/02/19 09:28 Lexapro PO 20 mg DAILY BETTY Administration Furosemide 40 mg 04/02/19 06:00 04/02/19 15:06 Lasix SLOW IVP 40 mg 0600,1400 BETTY Administration Hydralazine HCl 10 mg 04/01/19 16:16 04/02/19 05:24 Apresoline SLOW IVP 10 mg Q4H PRN Administration Hypertension Insulin Glargine 20 units/ 0.2 mls @ 0 mls/hr 04/01/19 21:00 04/01/19 21:43 Miscellaneous Medication SC 0.2 mls HS BETTY Administration Insulin Human Lispro 0 units 04/01/19 16:13 04/02/19 12:21 Humalog SC 4 unit .MILD SLIDING SCALE PRN Administration Mild Correctional Scale Losartan Potassium 25 mg 04/02/19 09:00 04/02/19 09:26 Cozaar PO 25 mg DAILY BETTY Administration Nitroglycerin 1 inch 04/01/19 21:00 04/02/19 09:25 Nitro-Bid 2% Ointment TOP 1 inch BID BETTY Administration - Exam General Appearance: awake alert Eye: PERRL ENT: normocephalic atraumatic Heart: RRR, no murmur, no gallops Respiratory: CTAB, no wheezes, no rales Gastrointestinal: soft, non-tender, non-distended Extremities: no cyanosis, no clubbing, 1+ LE edema Neurological: CN's grossly intact, normal sensation to touch, no weakness Musculoskeletal: normal tone, normal strength, no muscle wasting Psychiatric: normal affect, normal behavior, A&O x 3 Hosp A/P (1) Hypertension Code(s): I10 - ESSENTIAL (PRIMARY) HYPERTENSION Status: Acute Plan: continue antihypertensives (2) Acute respiratory failure Code(s): J96.00 - ACUTE RESPIRATORY FAILURE, UNSP W HYPOXIA OR HYPERCAPNIA Status: Acute Qualifiers: Respiratory failure complication: hypoxia Qualified Code(s): J96.01 - Acute respiratory failure with hypoxia Plan: Continue diuresis with lasix, NC oxygen follow up on echo (3) Acute congestive heart failure Code(s): I50.9 - HEART FAILURE, UNSPECIFIED Status: Acute Qualifiers: Heart failure type: unspecified Qualified Code(s): I50.9 - Heart failure, unspecified Plan: BNP 590, continue IV lasix, daily weights, NC oxygen follow up on echo (4) Diabetes Code(s): E11.9 - TYPE 2 DIABETES MELLITUS WITHOUT COMPLICATIONS Status: Acute Plan: continue lantus, ss with accuchecks, diabetic diet
[2019-04-02] MEDS: Insulin Glargine 20 UNITS in Pre-Filled Syringe SC SCH (20:46)
[2019-04-03] MEDS: Furosemide 40 MG/4 ML VIAL SLOW IVP SCH ×2 (06:10→14:34)
[2019-04-03 07:37] LABS: Anion Gap 14 mmol/L (10-20); BUN (Urea Nitrogen) 22 mg/dL (9.8-20.1); Calc. Creatinine Clearance 100 mL/min (70-130); Calcium 10.1 mg/dL (7.8-10.44); Carbon Dioxide 26 mmol/L (23-31); Chloride 100 mmol/L (98-107); Estimated GFR-MDRD 52; Glucose 181 mg/dL (83-110); Potassium 3.8 mmol/L (3.5-5.1); Sodium 136 mmol/L (136-145)
[2019-04-03] MEDS ORDERED: Sodium Chloride 0.9% 10 ML ONE ×2 (08:48→14:08)
--- NOTE | 2019-04-03 08:50 | PDOC.HOSPP ---
- Subjective Encounter Date: 04/03/19 Encounter Time: 14:22 Subjective: breathing better, wants to know plan of action - Objective Vital Signs & Weight: Vital Signs (12 hours) Temp Pulse Resp BP BP Pulse Ox 04/03/19 08:00 98.0 F 60 18 161/77 H 97 04/03/19 07:47 97 04/03/19 03:30 97.9 F 64 18 153/67 H 97 Weight Weight 289 lb 15.937 oz I&O: 04/02/19 04/03/19 04/04/19 06:59 06:59 06:59 Intake Total 250 1450 Output Total 2125 Balance 250 -675 Result Diagrams: 04/01/19 12:30 04/03/19 06:53 Additional Labs: Accuchecks 04/03/19 04/02/19 04/02/19 05:38 20:23 16:59 POC Glucose 166 H 305 H 228 H 04/02/19 11:19 POC Glucose 273 H Hospitalist ROS - Medication Medications: Active Medications Generic Name Dose Route Start Last Admin Trade Name Freq PRN Reason Stop Dose Admin Acetaminophen 650 mg 04/01/19 16:13 04/02/19 05:24 Tylenol PO 650 mg Q4H PRN Administration Headache/Fever/Mild Pain (1-3) Aspirin 325 mg 04/02/19 09:00 04/02/19 09:25 Aspirin PO 325 mg DAILY BETTY Administration Carvedilol 3.125 mg 04/01/19 17:00 04/02/19 17:25 Coreg PO 3.125 mg BID-WM BETTY Administration Enoxaparin Sodium 40 mg 04/02/19 09:00 04/02/19 09:26 Lovenox SC 40 mg 0900 BETTY Administration Escitalopram Oxalate 20 mg 04/02/19 09:00 04/02/19 09:28 Lexapro PO 20 mg DAILY BETTY Administration Furosemide 40 mg 04/02/19 06:00 04/03/19 06:10 Lasix SLOW IVP 40 mg 0600,1400 BETTY Administration Hydralazine HCl 10 mg 04/01/19 16:16 04/02/19 05:24 Apresoline SLOW IVP 10 mg Q4H PRN Administration Hypertension Insulin Glargine 20 units/ 0.2 mls @ 0 mls/hr 04/01/19 21:00 04/02/19 20:46 Miscellaneous Medication SC 0.2 mls HS BETTY Administration Insulin Human Lispro 0 units 04/01/19 16:13 04/02/19 17:27 Humalog SC 3 unit .MILD SLIDING SCALE PRN Administration Mild Correctional Scale Losartan Potassium 25 mg 04/02/19 09:00 04/02/19 09:26 Cozaar PO 25 mg DAILY BETTY Administration Nitroglycerin 1 inch 04/01/19 21:00 04/02/19 20:47 Nitro-Bid 2% Ointment TOP 1 inch BID BETTY Administration - Exam General Appearance: awake alert Eye: PERRL, anicteric sclera ENT: normocephalic atraumatic, no oropharyngeal lesions, moist mucosa Neck: supple, symmetric, no JVD, no thyromegaly Heart: RRR, no gallops, no rubs, normal peripheral pulses, murmur present Respiratory: CTAB, no wheezes, no rales, no ronchi, normal chest expansion Gastrointestinal: soft, non-tender, non-distended, normal bowel sounds, no palpable masses Extremities: no cyanosis, no clubbing, 1+ LE edema Skin: normal turgor, no lesions, no rashes Neurological: CN's grossly intact, normal sensation to touch, no weakness, no focal deficits Hosp A/P (1) Acute respiratory failure Code(s): J96.00 - ACUTE RESPIRATORY FAILURE, UNSP W HYPOXIA OR HYPERCAPNIA Status: Acute Qualifiers: Respiratory failure complication: hypoxia Qualified Code(s): J96.01 - Acute respiratory failure with hypoxia (2) Aortic stenosis, severe Code(s): I35.0 - NONRHEUMATIC AORTIC (VALVE) STENOSIS Status: Acute (3) Hypertension Code(s): I10 - ESSENTIAL (PRIMARY) HYPERTENSION Status: Acute Qualifiers: Hypertension type: essential hypertension Qualified Code(s): I10 - Essential (primary) hypertension (4) Acute congestive heart failure Code(s): I50.9 - HEART FAILURE, UNSPECIFIED Status: Acute Qualifiers: Heart failure type: unspecified Qualified Code(s): I50.9 - Heart failure, unspecified (5) Diabetes Code(s): E11.9 - TYPE 2 DIABETES MELLITUS WITHOUT COMPLICATIONS Status: Acute - Plan DVT proph w/lovenox Recent history of bladder lift srgery when she received lots of IV fluids, since then patient has been increasingly short of breath. Patient treated for acute renal failure with NC oxygen, aggressive diuresis. Elevated BNP on admission and echo revealing severe aortic valve stenosis Continue antihypertensives and Lantus for DM Cardiology consulted to evaluate aortic stenosis.
[2019-04-03] MEDS: Losartan 25 MG TAB PO SCH (10:01)
[2019-04-03] MEDS: Carvedilol 3.125 MG TAB PO SCH ×2 (10:01→18:06)
[2019-04-03] MEDS: Aspirin 325 MG TAB PO SCH (10:02)
[2019-04-03] MEDS: Escitalopram Oxalate 20 mg Tablet PO SCH ×2 (10:02→20:58)
[2019-04-03] MEDS: Nitroglycerin 2% Ointment 1 INCH/1 GM Packet TOP SCH ×2 (10:02→20:58)
[2019-04-03] MEDS: Enoxaparin Sodium 40 MG/0.4 ML SYRINGE SC SCH (10:03)
[2019-04-03] MEDS: HumaLOG 300 UNITS/3 ML VIAL SC PRN ×4 (10:11→21:00)
--- NOTE | 2019-04-03 17:24 | CON ---
DATE OF CONSULTATION: 04/03/2019 REASON FOR CONSULTATION: Aortic stenosis. HISTORY OF PRESENT ILLNESS: Ms. Gonzalez is a very pleasant 73-year-old female, who comes to the hospital for shortness of breath. She had a vaginal sling performed by Dr. Crespo about six days ago last Wednesday. She had some problems with urinary retention afterwards, eventually received some Lasix and felt better. She was at home yesterday in normal state of health and suddenly developed worsening shortness of breath. She got to the point, where she could not lay flat without coughing and unable to breathe, she decided to come into the hospital. She was found to be in heart failure. She was given IV Lasix and she is already feeling much better. Echocardiogram was performed yesterday and it showed an EF of 60% to 65%, but she had aortic stenosis on the echo. I have reviewed the echo myself and her aortic valve has what we could call, [id number] aortic stenosis with valve area of 1.0, mean gradient of 24 mmHg, and a max velocity of 3.8 m/sec. She tells me that she moved in from [place] few years ago. She now lives in [place] in a trailer with her . She has seen a tug hand in the past and remembers being told that she had a blocked artery or blocked valve in her heart, but she has not seen a tug hand for at least the last 2 years. She denies any syncope or presyncope. Denies chest pain, tightness, or pressure. She has been shortness of breath and she is much better now. PAST MEDICAL HISTORY: 1. Type 2 diabetes. 2. Hypertension. 3. Hyperlipidemia. PAST SURGICAL HISTORY: 1. Appendectomy. 2. Cholecystectomy. 3. Hysterectomy. 4. Bilateral total knee replacement. 5. Tonsillectomy. 6. Bladder lift. 7. Left ankle reconstruction. SOCIAL HISTORY: No alcohol, tobacco, or drugs. FAMILY HISTORY: Mother with CVA. OUTPATIENT MEDICATIONS: Include; 1. Lexapro 25 mg a day. 2. Metformin 850 mg twice a day. 3. Lantus 20 units at bedtime. 4. Losartan 25 mg a day. ALLERGIES: NO KNOWN DRUG ALLERGIES. REVIEW OF SYSTEMS: A 12-point review of systems was done and was all negative unless stated in the history of present illness. PHYSICAL EXAMINATION: VITAL SIGNS: Temperature 98.1, pulse 65, respiratory rate 18, saturation 94% on room air, and blood pressure 146/66. GENERAL: Awake, alert, and oriented x3. No distress. HEENT: Normocephalic and atraumatic. NECK: Supple. LUNGS: Clear. CARDIOVASCULAR: S1 and S2. No S3 or S4. There is a mid to late peaking systolic murmur at the right upper sternal border, radiated to the rest of the precordium. ABDOMEN: Soft. Positive bowel sounds. EXTREMITIES: 1+ edema. SKIN: Warm and dry. LABORATORY DATA: Laboratory work was reviewed. CBC with a white count of 8, hemoglobin 11, hematocrit 32, and platelet count of 182. Coags, D-dimer was elevated 1.1. Chemistry was unremarkable. GFR 52 and magnesium at 1.5. UA with 1+ blood, 75 leukocyte esterase, 7 to 10 red cells, and 7 to 10 white cells. Echocardiogram was reviewed shows an EF of 55% to 60%. There is aortic stenosis with a valve area of 1.0 cm2, mean gradient of 26 mmHg, and max velocity of 3.8 m/sec. CT of the thorax showed no evidence of pulmonary embolism. There is bilateral pleural effusions, vascular congestion, and cardiomegaly. There is a 0.5 cm diameter subpleural nodule in the right lower lobe. ASSESSMENT: 1. Acute on chronic diastolic heart failure. 2. Aortic stenosis in the [id number] range per transthoracic echo. PLAN: 1. She is still mildly volume overloaded, we would give one more day of IV Lasix. 2. We will plan on further evaluation of the aortic valve with a transesophageal echo. If this is still inconclusive, she will need a right and left heart catheterization, which we will plan on doing as an outpatient about a month from now, given her recent surgical intervention to her bladder. 3. We spoke at length about the risks and benefits of the transesophageal echo and she agreed to risks including but not limited to injury of the teeth and injury of the esophagus. She agrees to proceed. Further recommendations per results of transesophageal echo, which will happen probably on Wednesday. We will continue Lasix for now. Job ID: [id number]
[2019-04-03] MEDS: Melatonin 3 MG TAB PO PRN (20:58)
[2019-04-03] MEDS: Insulin Glargine 20 UNITS in Pre-Filled Syringe SC SCH (20:59)
[2019-04-04] MEDS: Furosemide 40 MG/4 ML VIAL SLOW IVP SCH ×2 (05:14→14:10)
[2019-04-04] MEDS: Enoxaparin Sodium 40 MG/0.4 ML SYRINGE SC SCH (09:11)
[2019-04-04] MEDS: Losartan 25 MG TAB PO SCH (09:12)
[2019-04-04] MEDS: Escitalopram Oxalate 20 mg Tablet PO SCH ×2 (09:12→21:48)
[2019-04-04] MEDS: Carvedilol 3.125 MG TAB PO SCH ×2 (09:13→16:52)
[2019-04-04] MEDS: Aspirin 325 MG TAB PO SCH (09:13)
[2019-04-04] MEDS: Nitroglycerin 2% Ointment 1 INCH/1 GM Packet TOP SCH ×2 (09:14→21:48)
[2019-04-04] MEDS: HumaLOG 300 UNITS/3 ML VIAL SC PRN ×2 (11:53→17:48)
--- NOTE | 2019-04-04 13:08 | PDOC.HOSPP ---
- Subjective Encounter Date: 04/04/19 Encounter Time: 13:07 Subjective: small bleeding from vaginal area - Objective Vital Signs & Weight: Vital Signs (12 hours) Temp Pulse Resp BP BP BP Pulse Ox 04/04/19 11:44 98.3 F 62 18 128/62 93 L 04/04/19 08:04 97.5 F L 59 L 18 181/77 H 95 04/04/19 04:00 98.7 F 61 20 140/68 92 L Weight Weight 290 lb 8 oz I&O: 04/03/19 04/04/19 04/05/19 06:59 06:59 06:59 Intake Total 1450 1380 Output Total 4433 2300 Balance -362 -118 Result Diagrams: 04/01/19 12:30 04/03/19 06:53 Additional Labs: Accuchecks 04/04/19 04/04/19 04/03/19 11:32 05:26 20:31 POC Glucose 283 H 153 H 282 H 04/03/19 18:03 POC Glucose 281 H Hospitalist ROS - Medication Medications: Active Medications Generic Name Dose Route Start Last Admin Trade Name Freq PRN Reason Stop Dose Admin Acetaminophen 650 mg 04/01/19 16:13 04/02/19 05:24 Tylenol PO 650 mg Q4H PRN Administration Headache/Fever/Mild Pain (1-3) Aspirin 325 mg 04/02/19 09:00 04/04/19 09:13 Aspirin PO 325 mg DAILY BETTY Administration Carvedilol 3.125 mg 04/01/19 17:00 04/04/19 09:13 Coreg PO 3.125 mg BID-WM BETTY Administration Escitalopram Oxalate 20 mg 04/03/19 21:00 04/04/19 09:12 Lexapro PO 20 mg BID BETTY Administration Furosemide 40 mg 04/02/19 06:00 04/04/19 05:14 Lasix SLOW IVP 40 mg 0600,1400 BETTY Administration Hydralazine HCl 10 mg 04/01/19 16:16 04/02/19 05:24 Apresoline SLOW IVP 10 mg Q4H PRN Administration Hypertension Insulin Glargine 20 units/ 0.2 mls @ 0 mls/hr 04/01/19 21:00 04/03/19 20:59 Miscellaneous Medication SC 0.2 mls HS BETTY Administration Insulin Human Lispro 0 units 08/31/19 16:13 04/04/19 11:53 Humalog SC 4 unit .MILD SLIDING SCALE PRN Administration Mild Correctional Scale Losartan Potassium 25 mg 04/02/19 09:00 04/04/19 09:12 Cozaar PO 25 mg DAILY BETTY Administration Melatonin 3 mg 04/03/19 20:26 04/03/19 20:58 Melatonin PO 3 mg HS PRN Administration Insomnia Nitroglycerin 1 inch 04/01/19 21:00 04/04/19 09:14 Nitro-Bid 2% Ointment TOP 1 inch BID BETTY Administration - Exam General - other findings: morbidly obese Eye: PERRL, anicteric sclera ENT: normocephalic atraumatic, no oropharyngeal lesions Neck: supple, symmetric, no JVD, no thyromegaly Heart: RRR, no gallops, no rubs, murmur present Respiratory: CTAB, no wheezes, no rales, no ronchi Gastrointestinal: soft, non-tender, non-distended, normal bowel sounds Extremities: no cyanosis, no clubbing, 1+ LE edema Skin: normal turgor, no lesions Neurological: CN's grossly intact, normal sensation to touch, no weakness, no focal deficits Musculoskeletal: normal tone, normal strength, no muscle wasting Psychiatric: normal affect, normal behavior, A&O x 3, oriented to person Hosp A/P (1) Aortic stenosis, severe Code(s): I35.0 - NONRHEUMATIC AORTIC (VALVE) STENOSIS Status: Acute (2) Acute congestive heart failure Code(s): I50.9 - HEART FAILURE, UNSPECIFIED Status: Acute Qualifiers: Heart failure type: systolic Qualified Code(s): I50.21 - Acute systolic ( congestive) heart failure (3) Acute respiratory failure Code(s): J96.00 - ACUTE RESPIRATORY FAILURE, UNSP W HYPOXIA OR HYPERCAPNIA Status: Acute Qualifiers: Respiratory failure complication: hypoxia Qualified Code(s): J96.01 - Acute respiratory failure with hypoxia (4) Hypertension Code(s): I10 - ESSENTIAL (PRIMARY) HYPERTENSION Status: Acute Qualifiers: Hypertension type: essential hypertension Qualified Code(s): I10 - Essential (primary) hypertension (5) Diabetes Code(s): E11.9 - TYPE 2 DIABETES MELLITUS WITHOUT COMPLICATIONS Status: Acute - Plan Recent history of bladder lift srgery when she received lots of IV fluids, since then patient has been increasingly short of breath. Patient treated for acute renal failure with NC oxygen, aggressive diuresis. Elevated BNP on admission and echo revealing severe aortic valve stenosis Continue antihypertensives and Lantus for DM Cardiology consulted to evaluate aortic stenosis: Plans for ABDOUL in am Small vaginal bleeding on 04/04: STOPPED lOVENOX ESPECIALLY IN THE LIGHT OF RECENT BLADDER SURGERY Follow up on CBC, IF CONTINUED BLEEDING CONSULT [employer]
[2019-04-04 14:52] LABS: #Eosinphils 0.3 thou/uL (0.0-0.7); #Lymphocytes 2.1 thou/uL (1.20-3.40); #Monocytes 0.8 thou/uL (0.11-0.59); #Neutrophils 4.6 thou/uL (1.40-6.50); %Basophils 0.4 % (0.0-1.0); %Eosinophils 4.3 % (0.0-10.0); %Lymphocytes 26.2 % (21.0-51.0); %Monocytes 10.1 % (0.0-10.0); Hemoglobin 11.4 g/dL (12.0-16.0); Mean Corpuscular HGB CONC 35.5 g/dL (32.0-36.0); Mean Corpuscular Hemoglobin 32.3 pg (27.0-31.0); Mean Corpuscular Volume 91.1 fL (78.0-98.0); Mean Platelet Volume 10.6 fL (7.4-10.4); Platelet Count 197 thou/uL (130-400); RBC Distribution Width 11.9 % (11.5-14.5); Red Blood Cell (RBC) Count 3.52 mill/uL (4.20-5.40); White Blood Cell (WBC) Count 7.8 thou/uL (4.8-10.8)
--- NOTE | 2019-04-04 18:26 | PDOC.CPN ---
- Subjective Date: 04/04/19 Time: 12:45 - Review of Systems General: denies: fever/chills, weight/appetite/sleep changes, night sweats, fatigue Respiratory: denies: cough, congestion, shortness of breath, exercise intolerance Cardiovascular: denies: chest pain, palpitation, edema, paroxysmal nocturnal dyspnea, orthopnea Gastrointestinal: denies: nausea, vomiting, diarrhea, constipation, abd pain, GI bleeding Musculoskeletal: denies: pain, tenderness, stiffness, swelling, arthritis/ arthralgias Neurological: denies: numbness, syncope, seizure, weakness - Objective Allergies/Adverse Reactions: Allergies Allergy/AdvReac Type Severity Reaction Status Date / Time No Known Allergies Allergy Verified 04/01/19 21:08 Visit Medications: Current Medications Acetaminophen (Tylenol) 650 mg PO Q4H PRN PRN Reason: Headache/Fever/Mild Pain (1-3) Last Admin: 04/02/19 05:24 Dose: 650 mg Aspirin (Aspirin) 325 mg PO DAILY [facility] Last Admin: 04/04/19 09:13 Dose: 325 mg Carvedilol (Coreg) 3.125 mg PO BID-[facility] [place] Last Admin: 04/04/19 16:52 Dose: 3.125 mg Dextrose/Water (Dextrose 50%) 25 gm SLOW IVP PRN PRN PRN Reason: Hypoglycemia Escitalopram Oxalate (Lexapro) 20 mg PO BID [facility] Last Admin: 04/04/19 09:12 Dose: 20 mg Furosemide (Lasix) 40 mg SLOW IVP 0600,1400 [facility] Last Admin: 04/04/19 14:10 Dose: 40 mg Glucagon (Glucagon) 1 mg IM PRN PRN PRN Reason: Hypoglycemia Hydralazine HCl (Apresoline) 10 mg SLOW IVP Q4H PRN PRN Reason: Hypertension Last Admin: 04/02/19 05:24 Dose: 10 mg Dextrose/Water (D5w) 1,000 mls @ 0 mls/hr IV .Q0M PRN PRN Reason: Hypoglycemia Insulin Glargine 20 units/ (Miscellaneous Medication) 0.2 mls @ 0 mls/hr SC [facility] Last Admin: 04/03/19 20:59 Dose: 0.2 mls Insulin Human Lispro (Humalog) 0 units SC .MILD SLIDING SCALE PRN PRN Reason: Mild Correctional Scale Last Admin: 04/04/19 17:48 Dose: 3 unit Losartan Potassium (Cozaar) 25 mg PO DAILY BETTY Last Admin: 04/04/19 09:12 Dose: 25 mg Melatonin (Melatonin) 3 mg PO HS PRN PRN Reason: Insomnia Last Admin: 04/03/19 20:58 Dose: 3 mg Nitroglycerin (Nitro-Bid 2% Ointment) 1 inch TOP BID BETTY Last Admin: 04/04/19 09:14 Dose: 1 inch Ondansetron HCl (Zofran) 4 mg IVP Q6H PRN PRN Reason: Nausea/Vomiting Vital Signs & Weight: Vital Signs Temp Pulse Resp BP BP Pulse Ox 04/04/19 15:16 97.8 F 62 18 142/60 H 94 L 04/04/19 11:44 98.3 F 62 18 128/62 93 L 04/04/19 08:04 97.5 F L 59 L 18 181/77 H 95 Weight 290 lb 8 oz - Physical Exam General: alert & oriented x3, no apparent distress HEENT: mucus membranes moist Neck: supple neck Cardiac: regular rate and rhythm, no murmur Lungs: clear to auscultation Neuro: grossly intact Abdomen: active bowel sounds, soft, non-tender Skin: clear Musculoskeletal: normal range of motion - Labs Result Diagrams: 04/04/19 14:35 04/03/19 06:53 Troponin/CKMB Troponin I Less than 0.010 ng/mL (< 0.028) 04/01/19 19:35 - Telemetry Sinus rhythms and dysrhythmias: sinus rhythm - Assessment/Plan Assessment/Plan: 1. Aortic stenosis. 2. Acute on chronic diastolic CHF, improved. PLAN: - Measurements on echo suggestive of moderate to severe . - Will evaluate further with ABDOUL. - We spoke about risks and benefits of ABDOUL and she agrees to proceed.
[2019-04-04] MEDS: Insulin Glargine 20 UNITS in Pre-Filled Syringe SC SCH (21:47)
[2019-04-04] MEDS: Melatonin 3 MG TAB PO PRN (21:48)
[2019-04-05] MEDS: Aspirin 325 MG TAB PO SCH (09:05)
[2019-04-05] MEDS: Carvedilol 3.125 MG TAB PO SCH (09:05)
[2019-04-05] MEDS: Escitalopram Oxalate 20 mg Tablet PO SCH (09:06)
[2019-04-05] MEDS: Nitroglycerin 2% Ointment 1 INCH/1 GM Packet TOP SCH (09:07)
[2019-04-05] MEDS: Losartan 25 MG TAB PO SCH (09:10)
--- NOTE | 2019-04-05 13:09 | PDOC.CPN ---
- Subjective Date: 04/05/19 Time: 13:08 - Review of Systems General: denies: fever/chills, weight/appetite/sleep changes, night sweats, fatigue Respiratory: denies: cough, congestion, shortness of breath, exercise intolerance Cardiovascular: denies: chest pain, palpitation, edema, paroxysmal nocturnal dyspnea, orthopnea Gastrointestinal: denies: nausea, vomiting, diarrhea, constipation, abd pain, GI bleeding Musculoskeletal: denies: pain, tenderness, stiffness, swelling, arthritis/ arthralgias Neurological: denies: numbness, syncope, seizure, weakness - Objective Allergies/Adverse Reactions: Allergies Allergy/AdvReac Type Severity Reaction Status Date / Time No Known Allergies Allergy Verified 04/01/19 21:08 Visit Medications: Current Medications Acetaminophen (Tylenol) 650 mg PO Q4H PRN PRN Reason: Headache/Fever/Mild Pain (1-3) Last Admin: 04/02/19 05:24 Dose: 650 mg Aspirin (Aspirin) 325 mg PO DAILY [facility] Last Admin: 04/05/19 09:05 Dose: 325 mg Carvedilol (Coreg) 3.125 mg PO BID-[facility] Last Admin: 04/05/19 09:05 Dose: 3.125 mg Dextrose/Water (Dextrose 50%) 25 gm SLOW IVP PRN PRN PRN Reason: Hypoglycemia Escitalopram Oxalate (Lexapro) 20 mg PO BID [facility] Last Admin: 04/05/19 09:06 Dose: 20 mg Glucagon (Glucagon) 1 mg IM PRN PRN PRN Reason: Hypoglycemia Hydralazine HCl (Apresoline) 10 mg SLOW IVP Q4H PRN PRN Reason: Hypertension Last Admin: 04/02/19 05:24 Dose: 10 mg Dextrose/Water (D5w) 1,000 mls @ 0 mls/hr IV .Q0M PRN PRN Reason: Hypoglycemia Insulin Glargine 20 units/ (Miscellaneous Medication) 0.2 mls @ 0 mls/hr SC [facility] Last Admin: 04/04/19 21:47 Dose: 0.2 mls Insulin Human Lispro (Humalog) 0 units SC .MILD SLIDING SCALE PRN PRN Reason: Mild Correctional Scale Last Admin: 04/04/19 17:48 Dose: 3 unit Losartan Potassium (Cozaar) 25 mg PO DAILY [facility] Last Admin: 04/05/19 09:10 Dose: 25 mg Melatonin (Melatonin) 3 mg PO HS PRN PRN Reason: Insomnia Last Admin: 04/04/19 21:48 Dose: 3 mg Nitroglycerin (Nitro-Bid 2% Ointment) 1 inch TOP BID BETTY Last Admin: 04/05/19 09:07 Dose: 1 inch Ondansetron HCl (Zofran) 4 mg IVP Q6H PRN PRN Reason: Nausea/Vomiting Vital Signs & Weight: Vital Signs Temp Pulse Resp BP BP Pulse Ox 04/05/19 11:37 98.4 F 57 L 18 132/63 95 04/05/19 07:25 97.8 F 59 L 18 162/67 H 95 04/05/19 04:00 99.6 F 58 L 18 121/56 L 94 L Weight 286 lb 4.8 oz - Physical Exam General: alert & oriented x3, no apparent distress HEENT: mucus membranes moist Neck: supple neck Cardiac: regular rate and rhythm, regular rate, regular rhythm, systolic murmur Lungs: clear to auscultation Neuro: grossly intact Abdomen: active bowel sounds, soft, non-tender Musculoskeletal: normal range of motion - Labs Result Diagrams: 04/04/19 14:35 04/03/19 06:53 Troponin/CKMB Troponin I Less than 0.010 ng/mL (< 0.028) 04/01/19 19:35 - Telemetry Sinus rhythms and dysrhythmias: sinus rhythm - Assessment/Plan Assessment/Plan: 1. Aortic stenosis. 2. Acute on chronic diastolic CHF, improved. PLAN: - Measurements on echo suggestive of moderate to severe . - Will evaluate further with ABDOUL. - She may be discharged home today and will scheduled ABDOUL as an outpatient.
[2019-04-05 15:27] VITALS: BP 139/62; TEMP 98.6
--- NOTE | 2019-04-06 05:56 | DIS ---
DATE OF ADMISSION: 04/01/2019 DATE OF DISCHARGE: 04/05/2019 PRIMARY CARE PHYSICIAN: CHIEF COMPLAINT: Shortness of breath. PRINCIPAL DIAGNOSIS ON ADMISSION: 1. New onset congestive heart failure. DISCHARGE DIAGNOSES: 1. Diastolic congestive heart failure, new onset, with acute exacerbation. 2. Valvular heart disease, [id number] aortic stenosis, newly diagnosed. 3. Type 2 diabetes. 4. Small 0.5 cm nodule, right lung, incidental. 5. Dyslipidemia. 6. Hypertension. 7. Morbid obesity. 8. Status post recent urinary bladder lift surgery. 9. Essential hypertension. CONSULTATIONS DURING HOSPITAL STAY: Cardiology, Ricardo Iraheta MD. STUDIES/PROCEDURES: 2D echocardiogram on 04/02/2019, ejection fraction 55% to 60%. Left ventricular size normal. [id number] mitral regurgitation is present. Aortic valve leaflet thickened. Severe aortic stenosis present. HOSPITAL COURSE: Mrs. Gonzalez is a very pleasant 73-year-old female, admitted 04/01/2019 secondary to dyspnea beginning approximately 10:00 p.m. the night before. Unable to get comfortable, worse with walking, worse with lying flat, recently discharged from the hospital following 4-day recuperation following bladder suspension surgery. She received significant IV fluids in and around the time of this procedure, and ultimately had proceeded to home. She was admitted to the hospital with signs and symptoms of fluid overload. She underwent 2D echocardiogram, which showed preserved ejection fraction, but the presence of diastolic heart failure as well as valvular heart disease. She responded well to IV diuretics. At the time of discharge, has not required routine diuretic regimen. Plans are in place for transesophageal echocardiogram to better delineate the severity of her aortic stenosis. This will be scheduled on an outpatient basis in the near term. From a heart standpoint, she has stabilized and is able to transition to home. I saw and evaluated the patient at the time of discharge, discussed the case with her family at the bedside. She is comfortable, off oxygen, ambulating in the room. No significant lower extremity edema is present. Lung amaro are clear. Heart is regular with a soft right upper sternal border murmur. She appears stable for transition in the outpatient setting. DISCHARGE MEDICATIONS: 1. Coreg 3.125 mg p.o. twice daily. 2. Escitalopram 10 mg p.o. twice daily. 3. Lantus 20 units subcu at bedtime. 4. Losartan 25 mg p.o. once daily. DIET: Heart healthy, heart failure coordination involved with her care at the time of discharge. FOLLOWUP: Outpatient ABDOUL has been arranged within the next [address] Iraheta and his team, heart failure team assisting with care coordination. CONDITION ON DISCHARGE: Improved. TIME SPENT: In discharge/care coordination is 45 minutes. Job ID: [id number]
--- NOTE | 2019-04-09 03:15 | EKG ---
Test Reason : Blood Pressure : / mmHG Vent. Rate : 066 BPM Atrial Rate : 066 BPM P-R Int : 142 ms QRS Dur : 082 ms QT Int : 416 ms P-R-T Axes : 025 053 061 degrees QTc Int : 436 ms Normal sinus rhythm Normal ECG Confirmed by KARELY LINARES DO ([id number]), editor publications VIVIAN BARKER ([id number]) on 04/09/2019 3:15:00 AM Referred By: Confirmed By:KARELY LINARES DO
== END 2019-04-05 16:00 | disposition home or self-care (01) | DRG 291 ==
LOC: ERS 11:05 → ERHOLD 15:56 → 2NO 20:28
PROVIDERS: ADMIT Internal Medicine; ATTEND Internal Medicine
DX: I11.0 Hypertensive heart disease with heart failure (principal); J96.01 Acute respiratory failure with hypoxia; Z68.42 Body mass index [BMI] 45.0-49.9, adult; N17.9 Acute kidney failure, unspecified; I50.33 Acute on chronic diastolic (congestive) heart failure; E11.9 Type 2 diabetes mellitus without complications; E78.5 Hyperlipidemia, unspecified; F17.210 Nicotine dependence, cigarettes, uncomplicated; E66.01 Morbid (severe) obesity due to excess calories; R91.1 Solitary pulmonary nodule; I35.0 Nonrheumatic aortic (valve) stenosis; Z96.653 Presence of artificial knee joint, bilateral; Z90.49 Acquired absence of other specified parts of digestive tract; Z90.710 Acquired absence of both cervix and uterus; Z79.4 Long term (current) use of insulin; F32.9 Major depressive disorder, single episode, unspecified
CPT/HCPCS: 36415; 36416; 71046; 71275; 76770; 80048; 80053; 81003; 81015; 83735; 83880; 84484; 85025; 85027; 85379; 86850; 86900; 86901; 93005; 93306; 93798; 94760; 96374; C1781; J0360; J0690; J1650; J1815; J1940; J2001; J2270; J2405; J2550; J2704; J3010; Q9966

== ENCOUNTER → 2019-04-20 | Day surgery (SDC) | payer MEDICARE ==
[2019-04-19 17:06] VITALS: BMI 46.5
--- NOTE | 2019-04-20 20:32 | ECHO ---
DATE OF SERVICE: 04/20/19 PREPROCEDURE DIAGNOSIS: Aortic stenosis. The Anesthesiology department provided with sedation for the patient. Please see their notes for det ails. After adequate sedation was achieved, transesophageal probe was inserted into the mouth and into the esophagus. Multiplanar views were obtained. FINDINGS: Left ventricle is normal size. Normal systolic function. Estimated EF at 55-60%. Left atrium is mildly dilated. Left atrial appendage is patent with no mass or thrombus. Normal velocities. Right atrium is normal size. No mass or thrombus. The right ventricle is normal size. The interatrial septum appears to be intact by color Doppler and agitated saline study. Aortic valve is heavily calcified with decreased cusp opening. Planimetry measurements of the valve s uggests a valve area of 0.8 cm2 which would be consistent with severe aortic stenosis; however, gradi ents on transthoracic echo suggests moderate aortic stenosis with a mean gradient of 32 mmHg. Mitral valve is structurally normal. There is mild to moderate MR. No stenosis. Tricuspid valve is structurally normal. There is mild to moderate TR with no stenosis. Pulmonary valve is structurally normal. There is mild PI. No stenosis. CONCLUSIONS: 1. Normal LV systolic function, EF at 55-60%. 2. Mild left atrial enlargement. 3. Mild to moderate MR. 4. Mild TR. 5. Mild PI. 6. Heavily calcified aortic valve with decreased cusp opening. Aortic valve area by planimetry of 0. 8 cm2. Suggestive of severe aortic stenosis. Recommend right and left heart catheterization for confirmation of severity of stenosis.
== END ==
LOC: CCL 05:40
PROVIDERS: ATTEND Internal Medicine Cardiovascular Disease
PROC: B24BZZ4 Ultrasonography of Heart with Aorta, Transesophageal (ICD-10-PCS; principal; 2019-04-20)
DX: I35.0 Nonrheumatic aortic (valve) stenosis (principal)
CPT/HCPCS: 93312

== ENCOUNTER 2019-05-16 13:28 | Outpatient (CLI) | payer MEDICARE ==
[2019-05-16 15:46] LABS: #Eosinphils 0.3 thou/uL (0.0-0.7); #Lymphocytes 2.5 thou/uL (1.20-3.40); #Monocytes 0.8 thou/uL (0.11-0.59); %Basophils 0.5 % (0.0-1.0); %Eosinophils 3.9 % (0.0-10.0); %Lymphocytes 28.7 % (21.0-51.0); %Monocytes 8.9 % (0.0-10.0); Hemoglobin 13.5 g/dL (12.0-16.0); Mean Corpuscular HGB CONC 35.3 g/dL (32.0-36.0); Mean Corpuscular Hemoglobin 32.5 pg (27.0-31.0); Mean Platelet Volume 11.1 fL (7.4-10.4); Platelet Count 221 thou/uL (130-400); RBC Distribution Width 12.1 % (11.5-14.5); Red Blood Cell (RBC) Count 4.16 mill/uL (4.20-5.40); White Blood Cell (WBC) Count 8.5 thou/uL (4.8-10.8)
[2019-05-16 15:55] LABS: PTT 29.1 SEC (22.9-36.1); Prothrombin Time 12.8 SEC (12.0-14.7)
[2019-05-16 16:12] LABS: ALT (SGPT) 12 U/L (8-55); AST (SGOT) 12 U/L (5-34); Albumin 4.2 g/dL (3.4-4.8); Alkaline Phosphatase 75 U/L (40-110); Anion Gap 18 mmol/L (10-20); BUN (Urea Nitrogen) 26 mg/dL (9.8-20.1); Bilirubin, Total 0.8 mg/dL (0.2-1.2); Calc. Creatinine Clearance 0 mL/min (70-130); Calcium 10.5 mg/dL (7.8-10.44); Carbon Dioxide 20 mmol/L (23-31); Chloride 106 mmol/L (98-107); Estimated GFR-MDRD 51; Globulin 3.6 g/dL (2.4-3.5); Glucose 99 mg/dL (83-110); Potassium 4.5 mmol/L (3.5-5.1); Protein, Total 7.8 g/dL (6.0-8.3); Sodium 139 mmol/L (136-145)
== END 2019-05-16 13:29 | disposition home or self-care (01) ==
LOC: LABBT 13:28
PROVIDERS: ATTEND Internal Medicine Cardiovascular Disease
DX: Z01.818 Encounter for other preprocedural examination (principal); I35.0 Nonrheumatic aortic (valve) stenosis
CPT/HCPCS: 80053; 85025; 85610; 85730; 93005; 93010

== ENCOUNTER → 2019-05-23 | Day surgery (SDC) | payer MEDICARE ==
[2019-05-16 14:02] VITALS: BMI 50.8
[~2019-05-23] MED LIST: Fentanyl 100 MCG/2 ML VIAL ONE; Iopamidol 370 76% 100 ML VIAL ONE; Labetalol HCl 100 MG/20 ML VIAL ONE; Lidocaine 1% (PF) 30 ML VIAL ONE; Midazolam HCl 2 mg/2 ml Vial ONE; Ondansetron PF 4 MG/2 ML Vial ONE; hydrALAZINE 20 MG/ML VIAL ONE
[2019-05-23 07:58] LABS: Actual Bicarbonate (HCO3a) 23.8 mEq/L (22-28); Base Excess (BEa) -2.1 mEq/L (-2.0 to +3.0); CO2 Tension 45.5 mmHg (35.0-45.0); Calcium, Ionized 1.28 mmol/L (1.12-1.30); Carboxyhemoglobin (COHb) 1.4 gm% (0.0-3.0); Hemoglobin (Hb) 12.6 g/dL (12.0-16.0); Potassium - ABG Lab 3.84 mmol/L (3.70-5.30); pH, Arterial 7.34 (7.35-7.45)
[2019-05-23 08:03] LABS: O2 Tension (PaO2) 42.8 mmHg (> 70.0); Puncture Site RA
[2019-05-23 08:08] LABS: Actual Bicarbonate (HCO3a) 24.5 mEq/L (22-28); Analyzer IN Cardio OR; Base Excess (BEa) -1.7 mEq/L (-2.0 to +3.0); CO2 Tension 47.4 mmHg (35.0-45.0); Calcium, Ionized 1.28 mmol/L (1.12-1.30); Carboxyhemoglobin (COHb) 1.6 gm% (0.0-3.0); Hemoglobin (Hb) 14.5 g/dL (12.0-16.0); Potassium - ABG Lab 3.88 mmol/L (3.70-5.30); pH, Arterial 7.33 (7.35-7.45)
[2019-05-23 08:12] LABS: O2 Tension (PaO2) 38.4 mmHg (> 70.0)
== END ==
LOC: CCL 06:06
PROVIDERS: ATTEND Internal Medicine Cardiovascular Disease
PROC: 4A023N7 Measurement of Cardiac Sampling and Pressure, Left Heart, Percutaneous Approach (ICD-10-PCS; principal; 2019-05-23)
PROC: B2111ZZ Fluoroscopy of Multiple Coronary Arteries using Low Osmolar Contrast (ICD-10-PCS; 2019-05-23)
DX: I35.0 Nonrheumatic aortic (valve) stenosis (principal); I25.10 Atherosclerotic heart disease of native coronary artery without angina pectoris; E11.9 Type 2 diabetes mellitus without complications; E78.5 Hyperlipidemia, unspecified; I11.0 Hypertensive heart disease with heart failure; I50.31 Acute diastolic (congestive) heart failure; G47.30 Sleep apnea, unspecified; E66.01 Morbid (severe) obesity due to excess calories; Z68.42 Body mass index [BMI] 45.0-49.9, adult; Z87.891 Personal history of nicotine dependence; Z79.4 Long term (current) use of insulin; Z79.899 Other long term (current) drug therapy
CPT/HCPCS: 82805; 93460; 93567; 99152; 99153; C1769; J0360; J1644; J2001; J2250; J2405; J3010; Q9967

== ENCOUNTER 2020-07-15 12:06 | Inpatient (IN) | payer MEDICARE ==
--- NOTE | 2020-07-15 13:11 | RAD ---
XR Knee Lt 4 View STANDARD History: Fall Comparison: None. Findings: Incompletely imaged nonarticular medial femoral condylar fracture. Tibia is intact. Fibula is intact. Moderate joint effusion. Impression: Nonarticular fracture of the medial cortex medial femoral condyle is age indeterminant.
[2020-07-15 19:28] LABS: #Eosinphils 0.4 thou/uL (0.0-0.7); #Lymphocytes 1.9 thou/uL (1.20-3.40); #Monocytes 0.6 thou/uL (0.11-0.59); #Neutrophils 5.9 thou/uL (1.40-6.50); %Basophils 0.3 % (0.0-1.0); %Eosinophils 4.3 % (0.0-10.0); %Lymphocytes 21.1 % (21.0-51.0); %Neutrophils 67.3 % (42.0-75.0); Hemoglobin 12.4 g/dL (12.0-16.0); Mean Corpuscular HGB CONC 34.2 g/dL (32.0-36.0); Mean Corpuscular Hemoglobin 31.5 pg (27.0-31.0); Mean Corpuscular Volume 92.1 fL (78.0-98.0); Mean Platelet Volume 10.4 fL (7.4-10.4); Platelet Count 195 thou/uL (130-400); RBC Distribution Width 11.8 % (11.5-14.5); Red Blood Cell (RBC) Count 3.94 mill/uL (4.20-5.40); White Blood Cell (WBC) Count 8.8 thou/uL (4.8-10.8)
[2020-07-15 19:43] LABS: Hemoglobin A1c 8.7 % (4.0-6.0)
[2020-07-15 19:55] LABS: Anion Gap 15 mmol/L (10-20); BUN (Urea Nitrogen) 24 mg/dL (9.8-20.1); Calc. Creatinine Clearance 0 mL/min (70-130); Calcium 9.6 mg/dL (7.8-10.44); Carbon Dioxide 19 mmol/L (23-31); Chloride 107 mmol/L (98-107); Glucose 319 mg/dL (83-110); Magnesium 1.6 mg/dL (1.6-2.6); Phosphorus 3.5 mg/dL (2.3-4.7); Potassium 4.2 mmol/L (3.5-5.1); Sodium 137 mmol/L (136-145)
[2020-07-15] MEDS ORDERED: Dextrose 50% Abboject 50 ML SYRINGE SLOW IVP PRN (20:46)
[2020-07-15] MEDS ORDERED: Ondansetron ODT 4 MG TAB PO PRN (20:46)
[2020-07-15] MEDS ORDERED: Dextrose 5% in Water 1,000 ML IV PRN (20:46)
--- NOTE | 2020-07-15 21:11 | HP ---
REQUESTING PHYSICIAN: Dr. Pena. CONSULTATIONS: Orthopedics, Dr. Morrison. HISTORY OF PRESENT ILLNESS: The patient is a 74-year-old woman who was brought to the emergency department privately on vehicle. After she reported falling 3 days ago, the patient had continued pain, was brought to the emergency department where she underwent evaluation and examination and was noted to have a nondisplaced, nonarticular fracture of her femoral condyle of her left knee. The emergency department attempts to get her placed in rehab, but they were unsuccessful due to her insurance and due to her mobility and need for PT/OT instruction. It was felt that she should be admitted for observation and attempt placement versus a crutch training in home. ALLERGIES: NONE. CURRENT MEDICATIONS: Losartan. The patient is noted to be a noncompliant diabetic. PAST MEDICAL HISTORY: Hypertension, hyperlipidemia, and again noncompliant diabetic and depression. PAST SURGICAL HISTORY: Appendectomy, cholecystectomy, hysterectomy, bilateral knee replacements, tonsillectomy, bladder lift, left ankle reconstruction. SOCIAL HISTORY: The patient denies drug, tobacco, or alcohol use. She lives at home with family. REVIEW OF SYSTEMS: 10-point review of systems is negative as otherwise stated. PHYSICAL EXAMINATION: VITAL SIGNS: Blood pressure 142/99, heart rate 63, respirations 18, oxygen saturation is 96% on room air, and temperature is 98.9. GENERAL: The patient is resting comfortably. She is seated in an ER bed in the [facility] area. She is awake, alert, conversant, appropriate. Industry Coma Scale is 15. HEENT: Head is normocephalic, atraumatic. Eyes: Extraocular motion intact. PERRLA bilaterally. Ears are atraumatic at discharge. Nose is atraumatic at discharge. Oropharynx is clear. NECK: Nontender with trachea is midline. No JVD. CHEST: Clear to auscultation with good inspiratory and expiratory effort. HEART: Regular in rate and rhythm. ABDOMEN: Soft, flat, nontender with active bowel sounds. EXTREMITIES: Neurovascularly intact x4. Left knee has swelling to the left lower extremity with some dependent ecchymosis and swelling noted. BACK: Atraumatic and nontender. LABORATORY FINDINGS: White blood cell count 8.8, hemoglobin 12.4, hematocrit 36.3, platelets 195. Sodium 137, potassium 4.2, chloride 107, CO2 of 19, BUN 24, creatinine 1.23, glucose 319, magnesium 1.6, phosphorus 3.5. Hemoglobin A1c 8.7. RADIOGRAPHIC EXAMS: Views of the left knee show a nonarticular fracture of the medial cortex of the medial femoral condyle, age indeterminate. ASSESSMENT: 1. Status post ground level fall with remote presentation. 2. Left femoral condyle fracture. 3. Hyperglycemia due to noncompliance of diabetes. 4. History of hypertension and hyperlipidemia. 5. Pain secondary to trauma. PLAN: Will be to admit the patient to the surgical floor for observation. Orthopedic consultation in the morning. Reduce sliding scale insulin and hydration. Follow her glucose test, pain control, pulmonary toilet, gastritis, mechanical VTE prophylaxis. We will begin working on placement tomorrow morning. The evaluation, examination, laboratory, and radiographic findings were discussed with Dr. Feliciano prior to this dictation. Job ID: [id number]
[2020-07-15 22:48] VITALS: BMI 47.1
[2020-07-15] MEDS: Ibuprofen 600 MG TAB PO SCH (22:54)
[2020-07-15] MEDS: Cyclobenzaprine 10 MG TAB PO PRN (22:54)
[2020-07-15] MEDS: Acetaminophen 325 MG TAB PO SCH (22:54)
[2020-07-15] MEDS: HumaLOG 300 UNITS/3 ML VIAL SC PRN (22:59)
[2020-07-16] MEDS ORDERED: Magnesium Sulfate 3 GM in Sodium Chloride 0.9% 250 ML 250 ML IVPB SCH (00:45)
[2020-07-16] MEDS: traMADol HCl 50 MG TAB PO PRN ×3 (05:41→14:17)
[2020-07-16] MEDS: Acetaminophen 325 MG TAB PO SCH ×4 (05:41→23:10)
[2020-07-16] MEDS: Ibuprofen 600 MG TAB PO SCH ×3 (05:41→23:10)
[2020-07-16] MEDS: HumaLOG 300 UNITS/3 ML VIAL SC PRN ×3 (05:44→17:28)
[2020-07-16] MEDS: Losartan 25 MG TAB PO SCH (08:14)
[2020-07-16] MEDS: Carvedilol 3.125 MG TAB PO SCH ×2 (08:14→17:28)
[2020-07-16] MEDS: Escitalopram Oxalate 10 mg Tablet PO SCH ×2 (08:14→19:31)
--- NOTE | 2020-07-16 12:04 | RAD ---
RIGHT SHOULDER 2 VIEWS: HISTORY: Fall with right shoulder pain. FINDINGS: There are degenerative changes at the glenohumeral joint with spurring from the glenoid and subchondr al cystic change. There is irregularity of the articular surface of the glenoid and question lucency through the mid gl enoid neck and articular surface. I cannot exclude a scapular fracture involving the glenoid. The AC joint is widened and there is slight deformity of the distal clavicle with abnormal alignment of the AC joint on the scapular-Y view. The humeral head rides high on the glenoid suggesting chronic rotator cuff tear. IMPRESSION: 1. Question deformity of the glenoid. Fracture cannot be excluded and consider further evaluation w ith CT if there is injury. 2. Widening and malalignment at the acromioclavicular joint. Cute acromioclavicular separation shou ld be considered. CT would be of benefit to further evaluate. 3. Degenerative changes of the glenohumeral joint with high-riding humeral head suggesting chronic r otator cuff tear. POS: AGW
[2020-07-16 12:26] LABS: SARS-CoV-2 MS2 Positive; SARS-CoV-2 N Gene Negative; SARS-CoV-2 S Gene Negative; SARS-CoV-2 by NAA Not Detected (NotDetected); SARS-CoV-2 orf1ab Negative
--- NOTE | 2020-07-16 12:44 | CON ---
DATE OF CONSULTATION: 07/16/2020 REQUESTING PHYSICIAN: Dr. Kalin Feliciano. CONSULTING PHYSICIAN: Dr. Tom Morrison. REASON FOR CONSULTATION: Left knee pain and right shoulder pain after a fall. BRIEF CLINICAL HISTORY: Delaney is a 74-year-old female, who sustained a ground level fall 3 days prior to admission. She has had discomfort and instability of the left knee, which brought her to the emergency room. Radiographs were suspicious for a medial epicondylar avulsion fracture of her left knee which had been replaced approximately 12 to 15 years ago. She had this done in [place] and she has had bilateral total knee arthroplasties done as of note. Her pain is amplified with standing. She cannot weight bear and she cannot climb stairs which is essential to her being able to get inside her home, which is in [place]. She also has a home in [place] in [place], [place], where she spends most of her time and is more of her permanent home. She has been admitted by the Trauma team. Physical therapy and Occupational therapy, both were consulted and she was placed in a long-leg immobilizer at direction yesterday afternoon upon admission. PAST MEDICAL HISTORY: Hyperlipidemia, hypertension, diabetes, depression, chronic morbid obesity. PAST SURGICAL HISTORY: Appendectomy, cholecystectomy, hysterectomy, bilateral total knee arthroplasty, tonsillectomy, and left ankle reconstruction. SOCIAL HISTORY: She denies any ethanol, tobacco, illicit drug abuse. She splits her living time between [place] which is a home with stairs that required climbing and a more permanent dwelling without stairs in [place] in [place], [place]. She denies any fever, chills, nausea, vomiting, dyspnea on exertion. She denies any swelling in extremities. She denies any instability in the extremities prior to her fall. Secondary complaints centered around her right shoulder which began hurting after the fall. No radiographs or evaluation has been performed this part. PHYSICAL EXAMINATION: GENERAL: This is an obese female, appearing her stated age, in no apparent distress or discomfort. She is lying supine in the hospital bed with a long-leg immobilizer in place over the left leg. CHEST: Clear to auscultation. HEART: Regular rhythm. ABDOMEN: Non-peritoneal. Normoactive. MUSCULOSKELETAL: The left lower extremity demonstrates normal hip examination with flexion, extension, and abduction. She can straight leg raise after removal of her long-leg immobilizer, but she does have some periarticular bruising anterior and lateral to her midline incision which is well healed and closed. Knee examination demonstrates her to have some lateral collateral laxity and medial collateral laxity is trace with good firm endpoint. the knee, but she does not have a large hemarthrosis by exam. Her quadriceps tendon and patellar tendon are intact. There is no patellar fluctuance, no erythema, but just bruising anterolateral. The MCL feels a little slack without a good firm endpoint laterally to varus stressing. She is neurovascularly intact without any malrotation or shortening of the left lower extremity. Exam of the right shoulder demonstrates her to have tenderness with palpation. No bruising. No erythema. No crepitus. She does have a little bit of grind with abduction, internal-external rotation passively and provocative pain. External rotation appears to be intact as well as subscap lift-off and belly press test being negative. She is neurovascularly intact in the right upper extremity and can move it with a fair range of motion, but with provocative concordant pain actively and passively. IMPRESSION: 1. Left knee periprosthetic lateral collateral ligament strain, grade 2, possibly grade 3, acute in nature. 2. Right shoulder rotator cuff tendinopathy, but by examination appears to be intact. She may have some underlying arthritis based on age. PLAN: 1. Two views right shoulder will be obtained already obtained. 2. Continue long-leg immobilizer. The patient may be weightbearing as tolerated as long as she is in a long-leg immobilizer. No sycgo-hy-zeyjlm exercises at this point, as I am concerned that the lateral collateral ligament may be compromised. Long-term, I will have her come back to see one of my arthroplasty partners to re-evaluate the knee, but I think based on functional aspects, she may need to reestablish with her prior orthopedic surgeon in [place] in the event that revision arthroplasty with a total constrained construct is required to reestablish stability of the left knee. We will treat the right shoulder conservatively. Job ID: [id number]
[2020-07-16] MEDS: hydrALAZINE 20 MG/ML VIAL SLOW IVP PRN (14:17)
--- NOTE | 2020-07-16 20:21 | PRG ---
DATE OF SERVICE: 07/16/2020 SUBJECTIVE: The patient was seen this morning during rounds. She was sitting up in bed on the phone with no signs of acute distress. Nursing reported no acute events. The patient has pending evaluation by Ortho and PT. OBJECTIVE: VITAL SIGNS: Temperature 98.3, pulse 73, respirations 16, oxygen saturation 93% on room air, blood pressure 153/80. GENERAL: Well-appearing elderly female, sitting up in bed with no signs of acute distress. PULMONARY: Equal chest rise and fall. No signs of acute respiratory distress. CARDIAC: Regular rate and rhythm. GI: Abdomen is soft, nontender, nondistended. EXTREMITIES: 2+ pulses in all extremities. Gross motor and sensation are intact. No significant swelling noted. Knee immobilizer to left lower extremity is in place. NEUROLOGIC: GCS is 15. No focal neurological deficits. LABORATORY FINDINGS: There are no new laboratory findings to discuss. DIAGNOSTIC FINDINGS: There are no new diagnostic findings to discuss. ASSESSMENT: 1. Status post ground level fall 3 days before presentation. 2. Left femoral condyle fracture. 3. Acute kidney injury versus chronic kidney disease. 4. History of diabetes, hypertension, hyperlipidemia, and depression. PLAN: Continue diabetic diet. Ortho to evaluate the patient, likely nonoperative management. If so, we will have Physical Therapy work with the patient. The patient will need placement at rehab or skilled facility. We will ask Case Management to start working at that now. This patient was discussed with Dr. Feliciano before this dictation. Job ID: [id number]
[2020-07-16] MEDS: Cyclobenzaprine 10 MG TAB PO PRN (23:13)
[2020-07-17] MEDS: Acetaminophen 325 MG TAB PO SCH ×3 (05:08→17:41)
[2020-07-17] MEDS: Ibuprofen 600 MG TAB PO SCH ×3 (05:09→21:26)
[2020-07-17 05:20] LABS: #Eosinphils 0.3 thou/uL (0.0-0.7); #Lymphocytes 1.2 thou/uL (1.20-3.40); #Monocytes 0.5 thou/uL (0.11-0.59); #Neutrophils 2.8 thou/uL (1.40-6.50); %Basophils 0.2 % (0.0-1.0); %Lymphocytes 25.4 % (21.0-51.0); %Monocytes 9.4 % (0.0-10.0); %Neutrophils 59.1 % (42.0-75.0); Hemoglobin 10.4 g/dL (12.0-16.0); Mean Corpuscular HGB CONC 33.5 g/dL (32.0-36.0); Mean Corpuscular Volume 92.6 fL (78.0-98.0); Mean Platelet Volume 10.5 fL (7.4-10.4); Platelet Count 149 thou/uL (130-400); RBC Distribution Width 11.6 % (11.5-14.5); Red Blood Cell (RBC) Count 3.36 mill/uL (4.20-5.40); White Blood Cell (WBC) Count 4.8 thou/uL (4.8-10.8)
[2020-07-17 05:57] LABS: Anion Gap 14 mmol/L (10-20); BUN (Urea Nitrogen) 29 mg/dL (9.8-20.1); Calc. Creatinine Clearance 81 mL/min (70-130); Calcium 9.1 mg/dL (7.8-10.44); Carbon Dioxide 19 mmol/L (23-31); Chloride 108 mmol/L (98-107); Glucose 205 mg/dL (83-110); Magnesium 2.1 mg/dL (1.6-2.6); Phosphorus 5.2 mg/dL (2.3-4.7); Potassium 4.8 mmol/L (3.5-5.1); Sodium 136 mmol/L (136-145)
[2020-07-17] MEDS: HumaLOG 300 UNITS/3 ML VIAL SC PRN ×3 (06:22→16:18)
[2020-07-17] MEDS: Escitalopram Oxalate 10 mg Tablet PO SCH ×2 (08:48→21:26)
[2020-07-17] MEDS: Carvedilol 3.125 MG TAB PO SCH ×2 (08:48→17:43)
[2020-07-17] MEDS: Polyethylene Glycol 3350 17 GM Packet PO SCH (08:48)
[2020-07-17] MEDS: Losartan 25 MG TAB PO SCH (08:48)
[2020-07-17] MEDS: Senokot S 8.6-50 MG TAB PO SCH ×2 (08:48→21:26)
[2020-07-17] MEDS: traMADol HCl 50 MG TAB PO PRN ×2 (11:14→17:44)
--- NOTE | 2020-07-17 16:52 | PRG ---
DATE OF SERVICE: 07/17/2020 SUBJECTIVE: The patient was seen this morning during rounds. She was sitting up in bed with no signs of acute distress. She reported her pain is well controlled. She is tolerating a diabetic diet. She worked with Physical and Occupational Therapy and they recommended placement in a rehab facility. She is pending discharge to [facility]. She is ready for discharge. OBJECTIVE: VITAL SIGNS: Temperature 97.9, pulse 63, respirations 18, oxygen saturation 96% on room air, blood pressure 144/74. GENERAL: Well-appearing elderly female, sitting up in bed with no signs of acute distress. PULMONARY: Equal chest rise and fall. Clear breath sounds bilaterally. No signs of acute respiratory distress. CARDIAC: Regular rate and rhythm. GASTROINTESTINAL: Abdomen is soft, nontender, and nondistended. EXTREMITIES: 2+ pulses in all extremities. Gross motor and sensation are intact. No significant swelling noted. Knee immobilizer to left lower extremity is in place. NEUROLOGIC: GCS is 15. LABORATORY FINDINGS: White count 4.8, hemoglobin 10.4, hematocrit 31.1, platelets 149. Sodium 136, potassium 4.8, chloride 108, bicarb 19, BUN 29, creatinine 1.19, glucose 205, phosphorus 5.2, magnesium 2.1. DIAGNOSTIC FINDINGS: There are no new diagnostic findings to report. ASSESSMENT: 1. Status post ground-level fall 3 days before presentation. 2. Left femoral condyle fracture, nonoperative. 3. Acute kidney injury on chronic kidney disease, improving. 4. History of diabetes, hypertension, depression, and hyperlipidemia. PLAN: Continue current diet and pain regimen. Continue physical and occupational therapy. Continue supportive care. The patient is pending discharge to senior living facility. I believe she has picked [facility]. We are waiting for insurance approval and will discharge whenever that has been achieved. She is ready for discharge at this time. Job ID: [id number]
[2020-07-18] MEDS: Acetaminophen 325 MG TAB PO SCH ×4 (00:33→17:15)
[2020-07-18] MEDS: Ibuprofen 600 MG TAB PO SCH (05:35)
[2020-07-18 05:50] LABS: Anion Gap 16 mmol/L (10-20); BUN (Urea Nitrogen) 38 mg/dL (9.8-20.1); Calc. Creatinine Clearance 58 mL/min (70-130); Carbon Dioxide 19 mmol/L (23-31); Chloride 106 mmol/L (98-107); Glucose 188 mg/dL (83-110); Magnesium 2.1 mg/dL (1.6-2.6); Potassium 4.7 mmol/L (3.5-5.1); Sodium 136 mmol/L (136-145)
[2020-07-18] MEDS: HumaLOG 300 UNITS/3 ML VIAL SC PRN ×3 (05:57→17:15)
[2020-07-18] MEDS: Senokot S 8.6-50 MG TAB PO SCH ×2 (08:35→20:34)
[2020-07-18] MEDS: Losartan 25 MG TAB PO SCH (08:35)
[2020-07-18] MEDS: Carvedilol 3.125 MG TAB PO SCH ×2 (08:35→17:15)
[2020-07-18] MEDS: Escitalopram Oxalate 10 mg Tablet PO SCH ×2 (08:35→20:35)
[2020-07-18] MEDS: Polyethylene Glycol 3350 17 GM Packet PO SCH (08:35)
[2020-07-18] MEDS: traMADol HCl 50 MG TAB PO PRN ×2 (08:37→17:15)
[2020-07-18] MEDS ORDERED: Sodium Chloride 0.9% 1,000 ML IV SCH (09:00)
[2020-07-18] MEDS ORDERED: Furosemide 40 MG TAB PO SCH (09:00)
--- NOTE | 2020-07-18 12:11 | PRG ---
DATE OF SERVICE: 07/18/2020 SUBJECTIVE: Delaney is a 74-year-old female, hospital day 3 for a left knee lateral collateral ligament and admission due to inability to be independent at home. She is able to stand and walk in a weightbearing fashion with a long-leg immobilizer. She has had no buckling or falls. OBJECTIVE: VITAL SIGNS: Temperature 97.4, pulse 66, respiratory rate 18 and nonlabored, and blood pressure 150/66. GENERAL: She is alert and oriented to person, place, time, and situation, responsive and appropriate with the examiner. EXTREMITIES: Visual inspection of the left knee demonstrates her to have bruising, ecchymosis in the anterolateral aspect and posterolateral aspect of the knee. Drawer is negative. Varus stressing demonstrates lateral collateral laxity and with a poor endpoint. Medial collateral ligament is intact with good firm endpoint. Tenderness is listed diffusely with palpation around the joint capsule anteriorly and she has full extension with firm endpoint. IMPRESSION: A 74-year-old female, hospital day 3 with a lateral collateral ligament insufficiency over a prosthetic knee. PLAN: At this point since she is able to get in and out of bed, I have discussed with the patient that she would like to return to her home in [place], [place] since getting in and out is not a problem, there are no steps to climb. Otherwise, she and her will discuss whether or not she wants to be discharged to home or if she would like a skilled facility placement up here. We will recheck in the afternoon and determine. Job ID: [id number]
[2020-07-18] MEDS: Gabapentin 100 MG CAP PO SCH ×2 (15:05→20:34)
--- NOTE | 2020-07-18 20:20 | PRG ---
DATE OF SERVICE: 07/18/2020 SUBJECTIVE: The patient was seen this morning during rounds. She was sitting up in bed with no signs of acute distress. She reported she still has swelling in her left upper extremity. Otherwise, she has no acute complaints. Nursing reports no acute events. OBJECTIVE: VITAL SIGNS: Temperature 98.0, pulse 64, respirations 14, oxygen saturation 94% on room air, blood pressure 143/66. GENERAL: Well-appearing elderly female, sitting up in bed with no signs of acute distress. PULMONARY: Equal chest rise and fall. Clear breath sounds bilaterally. No signs of acute respiratory distress. CARDIAC: Regular rate and rhythm. GI: Abdomen is soft, nontender, nondistended. EXTREMITIES: 2+ pulses in all extremities. Gross motor and sensation are intact. Swelling to the left knee. NEUROLOGIC: GCS is 15. LABORATORY FINDINGS: Sodium 136, potassium 4.6, chloride 106, bicarb 19, BUN 38, creatinine 1.66, glucose 188, phosphorus 5.0, magnesium 2.1. DIAGNOSTIC FINDINGS: There are no new diagnostic findings to report. ASSESSMENT: 1. Status post ground level fall 3 days before presentation. 2. Left femoral condyle fracture, nonoperative. 3. Acute kidney injury on chronic kidney disease, slightly worsened today. 4. History of diabetes, hypertension, hyperlipidemia, and depression. PLAN: Continue current diet. Discontinue ibuprofen. The patient received 1 L of normal saline over 4 hours. Repeat blood work in the morning. Continue to monitor kidney function. She is pending placement at detention facility. Job ID: [id number]
[2020-07-18] MEDS: Heparin 5,000 UNITS/ML VIAL SC SCH (20:35)
[2020-07-19] MEDS: Cyclobenzaprine 10 MG TAB PO PRN (00:05)
[2020-07-19] MEDS: Acetaminophen 325 MG TAB PO SCH ×3 (00:05→15:57)
[2020-07-19] MEDS: traMADol HCl 50 MG TAB PO PRN ×2 (00:09→19:43)
[2020-07-19] MEDS: Morphine 2 MG/ML VIAL SLOW IVP PRN ×3 (02:33→17:16)
[2020-07-19 05:34] LABS: #Eosinphils 0.1 thou/uL (0.0-0.7); #Lymphocytes 0.9 thou/uL (1.20-3.40); #Monocytes 0.5 thou/uL (0.11-0.59); #Neutrophils 8.5 thou/uL (1.40-6.50); %Basophils 0.4 % (0.0-1.0); %Eosinophils 1.4 % (0.0-10.0); %Lymphocytes 9.2 % (21.0-51.0); %Monocytes 5.2 % (0.0-10.0); %Neutrophils 83.8 % (42.0-75.0); Hemoglobin 10.3 g/dL (12.0-16.0); Mean Corpuscular Hemoglobin 32.4 pg (27.0-31.0); Mean Corpuscular Volume 95.3 fL (78.0-98.0); Mean Platelet Volume 10.7 fL (7.4-10.4); Platelet Count 142 thou/uL (130-400); RBC Distribution Width 11.7 % (11.5-14.5); Red Blood Cell (RBC) Count 3.18 mill/uL (4.20-5.40); White Blood Cell (WBC) Count 10.1 thou/uL (4.8-10.8)
[2020-07-19] MEDS: HumaLOG 300 UNITS/3 ML VIAL SC PRN ×2 (05:59→21:53)
[2020-07-19 06:00] LABS: Anion Gap 16 mmol/L (10-20); BUN (Urea Nitrogen) 40 mg/dL (9.8-20.1); Calc. Creatinine Clearance 52 mL/min (70-130); Calcium 9.2 mg/dL (7.8-10.44); Carbon Dioxide 19 mmol/L (23-31); Chloride 105 mmol/L (98-107); Glucose 288 mg/dL (83-110); Phosphorus 4.5 mg/dL (2.3-4.7); Potassium 5.3 mmol/L (3.5-5.1); Sodium 135 mmol/L (136-145)
[2020-07-19] MEDS ORDERED: Sodium Chloride 0.9% 1,000 ML IV SCH (06:30)
[2020-07-19] MEDS ORDERED: CEFAZOLIN 2 GM in Premix Bag 1 BAG IVPB SCH (07:15)
--- NOTE | 2020-07-19 07:26 | PRG ---
DATE OF SERVICE: 07/19/2020 SUBJECTIVE: The patient is hospital day #3, status post fall with a nonoperative left femoral condyle fracture. Early this morning, the patient was assisted to the restroom using a walker when she lost her balance and fell backwards onto her buttocks. The patient reported an immediate pop and pain to the right hip. The patient was assisted back to bed with a 4-person assist. The patient did not lose consciousness or hit her head. The patient had no obvious injuries. DIAGNOSTICS: 1. Femur x-ray; impression, right midshaft femur fracture, pending official read. 2. Hip and pelvis x-ray, pending official reads. PLAN: The patient was placed on n.p.o. status and maintenance IV fluids, normal saline 100 mL an hour. Orthopedic Surgery, Dr. Storey was notified and Asim MURRAY. Pain control. Supportive care. The patient will likely go to the OR today for repair. Job ID: [id number]
--- NOTE | 2020-07-19 08:12 | RAD ---
AP PELVIS: HISTORY: Fall. FINDINGS: The bony pelvis appears intact. Hips appear intact. No osseous abnormality identified. IMPRESSION: No acute finding. POS: AGW
--- NOTE | 2020-07-19 08:15 | RAD ---
RIGHT HIP 1 VIEW: HISTORY: Fall with injury. FINDINGS/IMPRESSION: Mild degenerative changes of the hip with no acute process at the hip. There is a displaced slightly oblique fracture of the distal diaphysis of the femur which is incomple tely evaluated. POS: AGW
--- NOTE | 2020-07-19 08:16 | RAD ---
RIGHT FEMUR 4 VIEWS: HISTORY: Fall with injury. FINDINGS: There is a predominantly oblique displaced fracture of the distal diaphysis of the femur. There are overriding fragments. Slight comminution of the distal fragment. There is a knee prosthesis noted a nd components appear adequate positioned. IMPRESSION: Displaced fracture distal femur diaphysis. POS: AGW
[2020-07-19] MEDS ORDERED: Sodium Bicarbonate 100 MEQ in Sodium Chloride 0.45% 1,000 ML IV SCH (09:00)
[2020-07-19] MEDS ORDERED: ePHEDrine 50 MG/ML VIAL ONE (09:42)
[2020-07-19] MEDS ORDERED: PROPOFOL 200 MG/20 ML VIAL ONE (09:42)
[2020-07-19] MEDS ORDERED: Lidocaine 1% PF 5 ML VIAL ONE (09:42)
[2020-07-19] MEDS ORDERED: PHENYLEPHRINE-NS 100 MCG/ML 10 ML SYRINGE ONE (09:42)
[2020-07-19] MEDS ORDERED: Ondansetron PF 4 MG/2 ML Vial ONE (09:42)
[2020-07-19] MEDS ORDERED: diphenhydrAMINE 50 MG/ML VIAL ONE (09:42)
[2020-07-19] MEDS: Carvedilol 3.125 MG TAB PO SCH ×2 (09:44→15:57)
[2020-07-19] MEDS: Losartan 25 MG TAB PO SCH (09:46)
[2020-07-19] MEDS: Gabapentin 100 MG CAP PO SCH ×3 (09:46→19:45)
[2020-07-19] MEDS: Polyethylene Glycol 3350 17 GM Packet PO SCH (09:46)
[2020-07-19] MEDS: Escitalopram Oxalate 10 mg Tablet PO SCH ×2 (09:46→19:45)
[2020-07-19] MEDS: Senokot S 8.6-50 MG TAB PO SCH ×2 (09:47→21:34)
[2020-07-19] MEDS ORDERED: Fentanyl 100 MCG/2 ML VIAL ONE (10:58)
--- NOTE | 2020-07-19 12:42 | PRG ---
DATE OF SERVICE: 07/19/2020 SUBJECTIVE: The patient was seen this morning during rounds. She was sitting up in bed with some mild pain. Nursing reported overnight she fell and it was discovered that she has a right midshaft femur fracture. Orthopedic Surgery has been notified and she is pending OR today for fixation of that injury. OBJECTIVE: VITAL SIGNS: Temperature 97.6, pulse 69, respirations 18, oxygen saturation 96% on room air, blood pressure 136/73. GENERAL: Well-appearing, elderly female, sitting up in bed with no signs of acute distress. PULMONARY: Equal chest rise and fall, clear breath sounds bilaterally. No signs of acute respiratory distress. CARDIAC: Regular rate and rhythm. GI: Abdomen is soft, nontender, nondistended. EXTREMITIES: 2+ pulses in all extremities. Gross motor and sensation are intact. Swelling to the left knee. The patient also has deformity of the right thigh. NEUROLOGIC: GCS is 15. LABORATORY FINDINGS: White count 10.1, hemoglobin 10.3, hematocrit 30.3, platelets 142. Sodium 135, potassium 5.3, chloride 105, bicarb 19, BUN 40, creatinine 1.84, glucose 288, phosphorus 4.5, magnesium 2.0. DIAGNOSTIC FINDINGS: X-ray of the right femur demonstrates displaced fracture, distal femur diaphysis. X-ray of the right hip demonstrates mild degenerative changes to the hip with no acute process at the hip. There is a displaced, slightly oblique fracture of the distal diaphysis of the femur, which is incompletely evaluated. X-ray of the pelvis demonstrates no acute finding. ASSESSMENT: 1. Status post ground level fall 3 days before presentation and then again during hospital stay. 2. Left femoral condyle fracture, nonoperative. 3. Right midshaft femur fracture. 4. Acute kidney injury on chronic kidney disease, slightly worsening today. 5. History of diabetes, hypertension, hyperlipidemia, and depression. PLAN: Continue n.p.o. as the patient is going to the OR today with Orthopedic Surgery Team for fixation of the right midshaft femur fracture. We will discontinue the normal saline and change her IV fluids to bicarb at 100 an hour. Postop, she will work with Physical and Occupational Therapy. Repeat blood work in the morning. She will still need to go to a SNF, earliest discharge is possibly Wednesday. This patient was seen and evaluated by Dr. Feliciano and myself this morning during rounds. Job ID: [id number]
--- NOTE | 2020-07-19 13:56 | OP ---
DATE OF PROCEDURE: 07/19/2020 OPERATION PERFORMED: Intramedullary nail of right femoral shaft fracture. PREOPERATIVE DIAGNOSIS: Right femoral shaft fracture. POSTOPERATIVE DIAGNOSIS: Right femoral shaft fracture. COMPLICATIONS: None. ESTIMATED BLOOD LOSS: 150 mL. BACK LINE COOK: Pb Storey. IMPLANTS: Synthes 360 mm x 12 mm RAFN nail. INDICATIONS FOR PROCEDURE: Ms. Gonzalez is a 74-year-old female with fall and fracture of right femur. She has been indicated for intramedullary nail fixation to restore anatomic alignment and promote healing. Risks have been reviewed in detail. She has elected to proceed with the operation. DESCRIPTION OF PROCEDURE: Ms. Gonzalez was identified in the preoperative holding area. Her correct extremity was marked. She was carried to the operating room. She was positioned supine. General anesthesia was induced. A multidisciplinary time-out was performed. The right lower extremity was prepped and draped in sterile fashion. We began the procedure with an incision over the anterior knee. We dissected down through the subcutaneous tissues to the fascia. We opened the medial parapatellar retinaculum. At this point, we worked more deeply down into the knee joint, exposing the total knee arthroplasty. We then were able to visualize the underlying total knee and the access to the femur through the knee arthroplasty. We cleared soft tissue from this. We then used intraoperative x-ray and placed our guide pin in the centered position of the distal femur. This was checked again with x-ray. We then overdrilled the guidewire. Next, we placed a ball-tipped guidewire proximally up across the fracture into the proximal femur. We measured appropriate length. We then reamed and passed a 12 mm femoral nail. This was seated appropriately with intraoperative x-ray. We placed 2 distal Crosslock screws and 1 proximal Crosslock screw. This held our position appropriately. We took final images. We thoroughly irrigated all wounds and closed in layers including the retinaculum of the knee. At this point, the patient was taken to the recovery room in good condition without complication. The expanded function dental assistant surgeon was responsible for positioning the patient, preparing the injured extremity, applying the tourniquet, and assisting in preparation for surgery. The expanded function dental assistant was instrumental in reducing the injured limb by applying traction and reduction maneuvers as well as holding retractors and reduction tools. The expanded function dental assistant also was instrumental in assisting in exposure throughout the operation using appropriate retractors. The expanded function dental assistant participated in closure of the operative site as well as dressing application and splint application. Job ID: [id number]
--- NOTE | 2020-07-19 15:23 | RAD ---
LEFT FEMUR: Six fluoroscopic images presented from OR. INDICATION: Operative imaging during open reduction and internal fixation of left femur. FINDINGS/IMPRESSION: Images show intramedullary usha transfixing the mid shaft femur fracture. POS: AGW
[2020-07-19] MEDS: CEFAZOLIN 2 GM in Premix Bag 1 BAG IVPB SCH ×2 (15:57→21:53)
[2020-07-19] MEDS: Ondansetron PF 4 MG/2 ML Vial IVP PRN (17:27)
[2020-07-19] MEDS ORDERED: traMADol HCl 50 MG TAB PO PRN (21:45)
--- NOTE | 2020-07-19 23:47 | PRG ---
DATE OF SERVICE: 07/19/2020 SUBJECTIVE: Patient was seen during evening rounds, awake, alert, in no distress. Nursing staff currently at bedside, changing her brief. The patient does have moderate amount of pain when moved. The patient had a fall overnight, in which she sustained a right midshaft femur fracture. The patient is postop day zero, status post repair. Nursing staff states the patient has been sleepy most of the day. The patient is tolerating a diet, but has not eaten very much today. The patient's right knee is wrapped in an Yung wrap. Distal pulses intact. PLAN: We will renal dose patient's tramadol. We will stop gabapentin as the patient has been sleepy. We will repeat labs in the morning. Continue supportive care. Physical and occupational therapy. Job ID: [id number]
[2020-07-20] MEDS: traMADol HCl 50 MG TAB PO SCH ×2 (01:06→13:51)
[2020-07-20] MEDS: Acetaminophen 325 MG TAB PO SCH ×5 (01:06→23:28)
[2020-07-20] MEDS: Calcium Carbonate 500 MG ChewTAB PO PRN ×3 (02:41→20:04)
[2020-07-20 05:31] LABS: #Basophils 0.1 thou/uL (0.0-0.2); #Eosinphils 0.2 thou/uL (0.0-0.7); #Monocytes 0.8 thou/uL (0.11-0.59); #Neutrophils 9.5 thou/uL (1.40-6.50); %Basophils 0.6 % (0.0-1.0); %Eosinophils 1.6 % (0.0-10.0); %Lymphocytes 8.4 % (21.0-51.0); %Monocytes 7.3 % (0.0-10.0); Hemoglobin 9.2 g/dL (12.0-16.0); Mean Corpuscular HGB CONC 33.2 g/dL (32.0-36.0); Mean Corpuscular Hemoglobin 31.2 pg (27.0-31.0); Mean Corpuscular Volume 94.1 fL (78.0-98.0); Mean Platelet Volume 10.6 fL (7.4-10.4); Platelet Count 152 thou/uL (130-400); RBC Distribution Width 11.8 % (11.5-14.5); Red Blood Cell (RBC) Count 2.94 mill/uL (4.20-5.40); White Blood Cell (WBC) Count 11.5 thou/uL (4.8-10.8)
[2020-07-20 05:53] LABS: Anion Gap 18 mmol/L (10-20); BUN (Urea Nitrogen) 42 mg/dL (9.8-20.1); Calc. Creatinine Clearance 49 mL/min (70-130); Calcium 9.3 mg/dL (7.8-10.44); Carbon Dioxide 24 mmol/L (23-31); Chloride 101 mmol/L (98-107); Glucose 260 mg/dL (83-110); Magnesium 1.9 mg/dL (1.6-2.6); Potassium 4.9 mmol/L (3.5-5.1); Sodium 138 mmol/L (136-145)
[2020-07-20 06:35] LABS: Troponin I 0.021 ng/mL (< 0.028)
[2020-07-20] MEDS: HumaLOG 300 UNITS/3 ML VIAL SC PRN ×4 (06:50→21:11)
--- NOTE | 2020-07-20 08:16 | RAD ---
CHEST 1 VIEW: HISTORY: Chest pain. COMPARISON: 04/01/2019 exam. FINDINGS: Heart size is within normal limits. There are atherosclerotic changes of the aorta. The lungs are c lear of any infiltrative process. IMPRESSION: No active intrathoracic disease. POS: JES
[2020-07-20] MEDS: Heparin 5,000 UNITS/ML VIAL SC SCH ×3 (11:02→20:08)
[2020-07-20] MEDS: Senokot S 8.6-50 MG TAB PO SCH ×2 (11:02→20:08)
[2020-07-20] MEDS: Carvedilol 3.125 MG TAB PO SCH ×2 (11:03→18:18)
[2020-07-20] MEDS: Escitalopram Oxalate 10 mg Tablet PO SCH ×2 (11:03→20:08)
[2020-07-20] MEDS: Losartan 25 MG TAB PO SCH (11:03)
[2020-07-20] MEDS: Polyethylene Glycol 3350 17 GM Packet PO SCH (11:05)
[2020-07-20] MEDS: Sodium Chloride 0.9% 1,000 ML IV SCH ×2 (13:29→18:30)
[2020-07-20] MEDS: Ondansetron PF 4 MG/2 ML Vial IVP PRN ×2 (13:38→23:22)
--- NOTE | 2020-07-20 16:11 | ULT ---
Bilateral renal ultrasound CLINICAL INDICATION: Acute renal insufficiency. COMPARISON: 03/30/2019 FINDINGS: Right kidney: There is no evidence of a renal mass, renal calculus, or hydronephrosis seen. The right kidney measures 11.2 cm x 5.6 cm. Left kidney: There is no evidence of a renal mass, renal calculus, or hydronephrosis. The left kidney measures 10.8 cm x 6.2 cm. Urinary bladder: Within normal limits for degree of distention. IMPRESSION: 1. No evidence of hydronephrosis or renal cortical thinning. Kidneys have a similar appearance to sergio or study in 2019.
--- NOTE | 2020-07-20 17:36 | PRG ---
DATE OF SERVICE: 07/20/2020 SUBJECTIVE: The patient was seen this morning during rounds. She had just finished working with physical therapy. Nursing reports that since anesthesia yesterday, the patient has been sleeping a lot and mildly confused. After therapy, the patient reports that she is having a lot of pain and nursing is providing her with additional medications. She has not had breakfast yesterday, but nursing will provide her with breakfast this morning. The patient is complaining of indigestion. OBJECTIVE: VITAL SIGNS: Temperature 97.9, pulse 80, respirations 18, oxygen saturation 96% on room air, blood pressure 153/81. GENERAL: Well-appearing elderly female, lying in bed with some mild distress. PULMONARY: Equal chest rise and fall. Clear breath sounds bilaterally. No signs of acute respiratory distress. CARDIAC: Regular rate and rhythm. GI: Abdomen is soft, nontender, nondistended. EXTREMITIES: 2+ pulses in all extremities. Gross motor and sensation are intact. No significant swelling noted. Knee immobilizer is in place. Postoperative dressing is clean, dry, and intact with no signs of oozing. NEUROLOGIC: GCS is 15. LABORATORY FINDINGS: White count 11.5, hemoglobin 9.2, hematocrit 27.7, platelets 152. Sodium 138, potassium 4.9, chloride 101, bicarb 24, BUN 42, creatinine 1.94, glucose 260, phosphorus 5.0, magnesium 1.9. Troponin 0.021. DIAGNOSTIC FINDINGS: Chest x-ray completed this morning demonstrates no active intrathoracic disease. ASSESSMENT: 1. Status post ground level fall 3 days before presentation and then additional fall during her hospitalization. 2. Left femoral condyle fracture, nonoperative. 3. Right femoral shaft fracture, status post repair. 4. Acute kidney injury on chronic kidney disease, worsening. 5. Acid reflux. 6. History of diabetes, hypertension, hyperlipidemia, and depression. PLAN: Continue current diet. Discontinue bicarb drip and change to normal saline at 100 an hour. Discontinue Pepcid, change to PPI. Continue Tums p.r.n. Restart subcu heparin for DVT prophylaxis. Change pain medications from tramadol to Tylenol 3. Start lactulose as the patient has not had a bowel movement yet and she has been in the hospital for 5 days. We will consult Dr. Garcia of Nephrology for evaluation of the patient's worsening kidney function. He has asked for an ultrasound of the kidneys as well as discontinue losartan. We will start amlodipine and is placed and we will monitor the patient's blood pressure. This patient was discussed with Dr. Feliciano before this dictation. Job ID: [id number]
[2020-07-20] MEDS: Acetaminophen/Codeine 30-300mg Tablet PO PRN (20:07)
[2020-07-20] MEDS: Cyclobenzaprine 10 MG TAB PO PRN (20:08)
[2020-07-20] MEDS: Mag-Al 1200 mg/1200 mg/30 ML UDCUP PO PRN (21:13)
[2020-07-20] MEDS ORDERED: Amlodipine 5 MG TAB PO SCH (22:15)
[2020-07-21] MEDS: Morphine 2 MG/ML VIAL SLOW IVP PRN ×2 (00:54→05:00)
--- NOTE | 2020-07-21 02:43 | PRG ---
DATE OF SERVICE: 07/20/2020 SUBJECTIVE: The patient was seen during evening rounds on the surgical floor, awake, alert, in mild distress due to nausea. The patient vomited twice this evening. The patient still has not had a bowel movement and was placed on lactulose earlier today. The patient's vomiting and nausea did improve with some Zofran. The patient does have hyperactive bowel sounds, abdomen is soft and nontender and nondistended. PLAN: We will place the patient n.p.o. overnight for bowel rest as the patient likely has a postop ileus. We will continue maintenance IV fluids normal saline at 100 mL an hour. Increase physical and occupational therapy. Job ID: [id number]
[2020-07-21] MEDS: Sodium Chloride 0.9% 1,000 ML IV SCH ×2 (05:02→11:40)
[2020-07-21] MEDS: Acetaminophen 325 MG TAB PO SCH ×4 (05:32→22:39)
[2020-07-21 05:54] LABS: Anion Gap 17 mmol/L (10-20); BUN (Urea Nitrogen) 48 mg/dL (9.8-20.1); Calc. Creatinine Clearance 58 mL/min (70-130); Calcium 9.5 mg/dL (7.8-10.44); Carbon Dioxide 22 mmol/L (23-31); Chloride 102 mmol/L (98-107); Glucose 263 mg/dL (83-110); Magnesium 2.1 mg/dL (1.6-2.6); Phosphorus 3.1 mg/dL (2.3-4.7); Potassium 4.8 mmol/L (3.5-5.1); Sodium 136 mmol/L (136-145)
[2020-07-21] MEDS: HumaLOG 300 UNITS/3 ML VIAL SC PRN ×4 (06:20→22:19)
[2020-07-21 06:50] LABS: Band 16 % (5-11); Lymphocytes 11 % (21-51); MDiff Complete? YES; Mean Corpuscular HGB CONC 33.2 g/dL (32.0-36.0); Mean Corpuscular Hemoglobin 31.7 pg (27.0-31.0); Mean Corpuscular Volume 95.4 fL (78.0-98.0); Mean Platelet Volume 10.6 fL (7.4-10.4); Monocytes 7 % (0-10); Neutrophil 66 % (42-75); Platelet Count 151 thou/uL (130-400); RBC Distribution Width 11.9 % (11.5-14.5); Red Blood Cell (RBC) Count 2.51 mill/uL (4.20-5.40); White Blood Cell (WBC) Count 19.2 thou/uL (4.8-10.8)
[2020-07-21] MEDS ORDERED: Bisacodyl 10 MG SUPP PR SCH (08:30)
[2020-07-21] MEDS ORDERED: Amlodipine 5 MG TAB PO SCH (09:00)
[2020-07-21] MEDS: Ondansetron PF 4 MG/2 ML Vial IVP PRN (09:22)
[2020-07-21] MEDS: Heparin 5,000 UNITS/ML VIAL SC SCH ×3 (09:25→20:53)
[2020-07-21] MEDS: Polyethylene Glycol 3350 17 GM Packet PO SCH (09:26)
[2020-07-21] MEDS: Escitalopram Oxalate 10 mg Tablet PO SCH ×2 (09:26→20:52)
[2020-07-21] MEDS: Senokot S 8.6-50 MG TAB PO SCH ×2 (09:26→20:53)
[2020-07-21] MEDS: Carvedilol 3.125 MG TAB PO SCH ×2 (09:27→17:39)
[2020-07-21] MEDS: Amlodipine 5 MG TAB PO SCH (09:28)
--- NOTE | 2020-07-21 13:05 | PDOC.CONS ---
- Consultation Encounter Date: 07/21/20 Encounter Time: 13:05 Reason for consult: Acute kidney Chief complaint: Status post fall, left femoral condyle fracture History of present illness: Patient is a 74-year-old female with past no history of diabetes mellitus, hypertension hyperlipidemia, depression and obesity who w as initially admitted on 07/15 after a fall at home. Patient was found to have left femoral condyle fracture which is nonoperative. During admission patient also had subsequent fall with right femur fracture and underwent IM nailing. Nephrology was consulted for acute kidney injury. Patient is poor historian, information obtained from patient's daughter who was present at the time of examination. Patient and family did not have urinary complaints at home, she is not following with nephrology prior to this admission. Patient had constipation which was resolved with laxatives. Review of systems Gen.: No fever, no chills All the 14 systems reviewed except for the ones mentioned above are negative Physical examination Vital Signs (24 hours) Temp Pulse Resp BP BP Pulse Ox 07/21/20 19:32 98.3 F 71 18 121/68 92 L 07/21/20 15:05 97.2 F L 71 18 127/69 93 L 07/21/20 11:05 97.6 F 82 18 100/53 L 95 07/21/20 09:28 82 07/21/20 08:00 90 L 07/21/20 07:21 98.3 F 82 20 126/67 90 L 07/21/20 03:50 98.5 F 82 14 137/71 96 07/20/20 23:27 84 119/68 07/20/20 23:23 98 F 71 14 119/68 100 07/20/20 21:11 166/69 H Intake & Output - 24 hours 07/21/20 07/22/20 06:59 06:59 Intake Total 2360 0 Output Total 850 Balance 1510 2050 Intake: Intake, IV Amount 1500 1200 Oral 860 850 Output: Urine 750 Emesis 100 Other: Voiding Method Bedpan Diaper # Unmeasured Voids 2 # Urine Diapers 6 # Bowel Movement Diapers 5 Constitutional: Obese female patient, appears to be in discomfort and pain HEENT: Mucous membranes moist, no icterus Neck: Trachea midline, no lymphadenopathy Heart: Regular rate and rhythm; no murmurs Lungs: Air entry equal bilateral; no wheezes Abdomen: Soft; nontender; no guarding/tenderness/rebound Extremities: Right lower extremity in dressing Neurological: Patient is awake, following commands Skin: No rash, no ulcers Psychological: Not agitated Labs and Imaging reviewed Laboratory Results - last 24 hr 07/21/20 07/21/20 07/21/20 04:59 04:59 06:06 WBC 19.2 H RBC 2.51 L Hgb 8.0 L Hct 24.0 L MCV 95.4 MCH 31.7 H MCHC 33.2 RDW 11.9 Plt Count 151 MPV 10.6 H Neutrophils % (Manual) 66 Band Neuts % (Manual) 16 H Lymphocytes % (Manual) 11 L Monocytes % (Manual) 7 Sodium 136 Potassium 4.8 Chloride 102 Carbon Dioxide 22 L Anion Gap 17 BUN 48 H Creatinine 1.66 H Estimated GFR (MDRD) 30 Glucose 263 H POC Glucose 249 H Calcium 9.5 Phosphorus 3.1 Magnesium 2.1 07/21/20 07/21/20 11:32 15:02 WBC RBC Hgb Hct MCV MCH MCHC RDW Plt Count MPV Neutrophils % (Manual) Band Neuts % (Manual) Lymphocytes % (Manual) Monocytes % (Manual) Sodium Potassium Chloride Carbon Dioxide Anion Gap BUN Creatinine Estimated GFR (MDRD) Glucose POC Glucose 222 H 231 H Calcium Phosphorus Magnesium Active Medications Generic Name Dose Route Start Last Admin Trade Name Freq PRN Reason Stop Dose Admin Acetaminophen 325 mg 07/20/20 12:00 07/21/20 18:00 Acetaminophen 325 Mg Tab PO 325 mg Q6HR BETTY Administration Acetaminophen/Codeine Phosphate 2 tab 07/20/20 10:37 Acetaminophen/Codeine 30-300mg Tablet PO Q4H PRN Severe Pain (7-10) Acetaminophen/Codeine Phosphate 1 tab 07/20/20 10:37 07/20/20 20:07 Acetaminophen/Codeine 30-300mg Tablet PO 1 tab Q4H PRN Administration Moderate Pain (4-6) Al Hydroxide/Mg Hydroxide 30 ml 07/20/20 07:07 07/20/20 21:13 Mag-Al 1200 Mg/1200 Mg/30 Ml Udcup PO 30 ml Q4H PRN Administration Heartburn or Indigestion Albuterol/Ipratropium 3 ml 07/15/20 20:46 Ipratropium/Albuterol Sulfate 3 Ml Neb NEB Q4H PRN Wheezing Amlodipine Besylate 2.5 mg 12/20/20 09:00 07/21/20 09:28 Amlodipine 5 Mg Tab PO Not Given DAILY BETTY Calcium Carbonate 1,000 mg 07/20/20 01:30 07/20/20 20:04 Calcium Carbonate 500 Mg Chewtab PO 1,000 mg Q4H PRN Administration Heartburn or Indigestion Carvedilol 3.125 mg 07/16/20 08:00 07/21/20 17:39 Carvedilol 3.125 Mg Tab PO 3.125 mg BID-WM BETTY Administration Cyclobenzaprine HCl 5 mg 07/15/20 20:46 07/20/20 20:08 Cyclobenzaprine 10 Mg Tab PO 5 mg TID PRN Administration Muscle Spasm Dextrose/Water 25 gm 07/15/20 20:46 Dextrose 50% Abboject 50 Ml Syringe SLOW IVP PRN PRN Hypoglycemia Escitalopram Oxalate 10 mg 07/16/20 09:00 07/21/20 20:52 Escitalopram Oxalate 10 Mg Tablet PO 10 mg BID BETTY Administration Glucagon 1 mg 07/15/20 20:46 Glucagon 1 Mg/Ml Vial IM PRN PRN Hypoglycemia Heparin Sodium (Porcine) 5,000 units 07/18/20 21:00 07/21/20 20:53 Heparin 5,000 Units/Ml Vial SC 5,000 units TID BETTY Administration Hydralazine HCl 10 mg 07/15/20 20:46 07/16/20 14:17 Hydralazine 20 Mg/Ml Vial SLOW IVP 10 mg Q6H PRN Administration SBP > 150 Dextrose/Water 1,000 mls @ 0 mls/hr 07/15/20 20:46 D5w IV .Q0M PRN Hypoglycemia As Directed Cefazolin Sodium/Dextrose 2 gm 50 mls @ 100 mls/hr 07/19/20 07:15 / Device IVPB ONCALL-OR BETTY Insulin Human Lispro 0 units 07/15/20 20:46 07/20/20 21:11 Humalog 300 Units/3 Ml Vial SC 3 unit .BEDTIME SLIDING SC PRN Administration Bedtime Correctional Scale Insulin Human Lispro 0 units 07/20/20 16:58 07/21/20 16:07 Humalog 300 Units/3 Ml Vial SC 4 unit .MODERATE SLIDING SC PRN Administration Moderate Correctional Scale Lactulose 30 gm 07/21/20 09:00 07/21/20 09:25 Lactulose 20 Gm/30 Ml Udcup PO 30 gm DAILY BETTY Administration Morphine Sulfate 2 mg 07/21/20 00:42 07/21/20 05:00 Morphine 2 Mg/Ml Vial SLOW IVP 2 mg Q4H PRN Administration BREAKTHRU PAIN Ondansetron HCl 4 mg 07/15/20 20:46 07/21/20 09:22 Ondansetron Pf 4 Mg/2 Ml Vial IVP 4 mg Q6H PRN Administration Nausea Ondansetron HCl 4 mg 07/15/20 20:46 Ondansetron Odt 4 Mg Tab PO Q6H PRN Nausea/Vomiting Pantoprazole Sodium 40 mg 07/21/20 09:00 07/21/20 09:26 Pantoprazole 40 Mg Tab PO 40 mg DAILY BETTY Administration Polyethylene Glycol 17 gm 07/17/20 09:00 07/21/20 09:26 Polyethylene Glycol 3350 17 Gm Packet PO 17 gm DAILY BETTY Administration Senna/Docusate Sodium 2 tab 07/19/20 21:48 07/21/20 20:53 Senokot S 8.6-50 Mg Tab PO Not Given BID BETTY Sodium Chloride 10 ml 07/15/20 20:46 07/19/20 05:56 Flush - Normal Saline 10 Ml Syringe IVF 10 ml PRN PRN Administration Saline Flush Assessment and plan Acute on chronic kidney disease stage III Hypertension Diabetes mellitus Anemia Patient is non-oliguric, 700 ML urine output since 7 AM. Patient's hemoglobin is gradually trending down. She has normocytic, normal chromic anemia. Continue to monitor transfuse PRBC as needed to with target hemoglobin greater than 8. Check iron studies. Patient's blood pressure stable, continue with amlodipine and Coreg. Renal ultrasound reviewed. Will evaluate daily for renal replacement therapy daily, no indication for dialysis today. Discussed with patient's daughter in details. Answered all her questions to her satisfaction. Thank you for allowing me to participate in the management of this pt .
--- NOTE | 2020-07-21 14:22 | PRG ---
DATE OF SERVICE: 07/21/2020 SUBJECTIVE: The patient was seen this morning twice initially with Dr. Feliciano and she was being clean. I then visited again with her later in the morning. The patient reported that she needed to have a bowel movement. She has been n.p.o., concerned for possible ileus. Nursing reports that she did have a bowel movement. Pain is better controlled. She is working with physical therapy. OBJECTIVE: VITAL SIGNS: Temperature 98.3, pulse 82, respirations 20, oxygen saturation 95% on room air, blood pressure 126/67. GENERAL: Elderly female, sitting up in bed with no signs of acute distress. PULMONARY: Equal chest rise and fall. No signs of acute respiratory distress. ABDOMEN: Soft, nontender, nondistended. EXTREMITIES: 2+ pulses in all extremities. Gross motor and sensation intact. No significant swelling noted. NEURO: GCS is 15. LABORATORY FINDINGS: White count 19.2, hemoglobin 8.0, hematocrit 24.0, platelets 151. Sodium 136, potassium 4.8, chloride 102, bicarb 22, BUN 48, creatinine 1.66. DIAGNOSTIC FINDINGS: There are no new diagnostic findings to discuss. ASSESSMENT: 1. Status post mechanical fall from standing x2. 2. Left femoral condyle fracture, nonoperative. 3. Right femur fracture, status post repair. 4. Acute kidney injury on chronic kidney disease, improving today. 5. Ileus, resolving. 6. History of diabetes, hypertension, hyperlipidemia, and depression. PLAN: Advance diabetic diet. Continue IV fluid suppository for bowel movement. Repeat blood work in the morning. Continue physical and occupational therapy. Incentive spirometry q.1 hour. Pending discharge to [facility]. The patient recently had a chest x-ray, which demonstrated no concern for intrathoracic disease. However, she has a jump in her white count today to 19.2. Subsequently, we will send off a UA and follow it up. Job ID: [id number]
[2020-07-21] MEDS: Cyclobenzaprine 10 MG TAB PO PRN (22:36)
[2020-07-22 00:09] LABS: Bilirubin Negative (Negative); Blood, Urine Negative (Negative); Clarity Clear (Clear); Glucose, Urine (Dipstick) 30 mg/dL (Negative); Ketone, Urine Negative (Negative); Leukocyte Negative Leu/uL (Negative); Nitrite Negative (Negative); Protein, Urine (Dipstick) 20 mg/dL (Neg-Trace); RBC/HPF 0-3 HPF (0-3); Specific Gravity, Urine 1.019 (1.002-1.036); Squamous Epithelial None Seen HPF (0-3); Urobilinogen Normal mg/dL (Less than 2); WBC/HPF 0-3 HPF (0-3)
[2020-07-22 00:11] LABS: Bacteria/HPF Rare-Few HPF (None Seen)
[2020-07-22 00:12] LABS: Urine Culture Reflex No No
--- NOTE | 2020-07-22 01:38 | PRG ---
DATE OF SERVICE: 07/21/2020 SUBJECTIVE: The patient was seen during evening rounds, resting comfortably, in no acute distress. The patient has been confused most of the day. The patient had several bowel movements today. The patient is tolerating a diabetic diet at this time. Maintenance IV fluids were discontinued as the patient is tolerating diet. The patient's urinalysis is negative for UTI. PLAN: Continue supportive care and pain regimen. Increase physical and occupational therapy. The patient is ready for discharge at this time. The patient is pending placement to [facility]. Job ID: [id number]
[2020-07-22] MEDS: Acetaminophen 325 MG TAB PO SCH ×4 (05:40→23:11)
[2020-07-22 05:41] LABS: Anion Gap 19 mmol/L (10-20); BUN (Urea Nitrogen) 39 mg/dL (9.8-20.1); Calc. Creatinine Clearance 85 mL/min (70-130); Calcium 9.3 mg/dL (7.8-10.44); Carbon Dioxide 18 mmol/L (23-31); Chloride 105 mmol/L (98-107); Glucose 209 mg/dL (83-110); Magnesium 1.9 mg/dL (1.6-2.6); Phosphorus 2.5 mg/dL (2.3-4.7); Potassium 4.6 mmol/L (3.5-5.1); Sodium 137 mmol/L (136-145)
[2020-07-22] MEDS: HumaLOG 300 UNITS/3 ML VIAL SC PRN ×2 (05:44→11:16)
[2020-07-22 05:48] LABS: Band 8 % (5-11); Eosinophils 1 % (0-10); Hemoglobin 7.6 g/dL (12.0-16.0); Lymphocytes 4 % (21-51); MDiff Complete? YES; Mean Corpuscular HGB CONC 32.8 g/dL (32.0-36.0); Mean Corpuscular Hemoglobin 31.3 pg (27.0-31.0); Mean Corpuscular Volume 95.5 fL (78.0-98.0); Mean Platelet Volume 10.5 fL (7.4-10.4); Monocytes 10 % (0-10); Neutrophil 77 % (42-75); Platelet Count 170 thou/uL (130-400); Red Blood Cell (RBC) Count 2.43 mill/uL (4.20-5.40); White Blood Cell (WBC) Count 21.6 thou/uL (4.8-10.8)
[2020-07-22] MEDS ORDERED: PHOS-NAK 1 PKT PACK PO SCH (08:45)
--- NOTE | 2020-07-22 09:37 | ULT ---
ULTRASOUND DOPPLER DUPLEX VENOUS BILATERAL LOWER EXTREMITIES: DATE: 07/22/2020 HISTORY: 74-year-old female with right lateral lower extremity pain TECHNIQUE: Grayscale, color-flow, and spectral analysis, of major veins of bilateral lower extremities. FINDINGS: There is demonstration of blood flow with normal compressibility, of the bilateral common femoral, pr ofunda femoral, greater saphenous, femoral, and posterior tibial, veins. The left popliteal vein could not be visualized due to patient position and immobility. The right popliteal vein has no DVT. IMPRESSION: 1) left popliteal vein not visualized. 2) No deep venous thrombosis of the rest of the major veins of the bilateral lower extremities.
--- NOTE | 2020-07-22 10:19 | RAD ---
XR Chest 1 View Portable History: Increased oxygen demand Comparison: Radiograph July 20, 2020 Findings: Lungs are clear. Transcatheter replacement. Heart size is enlarged. Pulmonary arteries are distended. No pneumothorax. Impression: Cardiomegaly and pulmonary hypertension. No evidence for pneumonia.
[2020-07-22] MEDS: Amlodipine 5 MG TAB PO SCH (10:22)
[2020-07-22] MEDS: Carvedilol 3.125 MG TAB PO SCH ×3 (10:22→17:27)
[2020-07-22] MEDS: Heparin 5,000 UNITS/ML VIAL SC SCH ×3 (10:23→21:24)
[2020-07-22] MEDS: Escitalopram Oxalate 10 mg Tablet PO SCH ×2 (10:23→21:03)
[2020-07-22] MEDS: Senokot S 8.6-50 MG TAB PO SCH ×3 (10:24→21:24)
[2020-07-22] MEDS: Polyethylene Glycol 3350 17 GM Packet PO SCH (10:24)
--- NOTE | 2020-07-22 12:15 | PRG ---
DATE OF SERVICE: 07/22/2020 SUBJECTIVE: A 74-year-old female, being seen for acute kidney injury. The patient is resting and confused. OBJECTIVE: GENERAL: The patient is resting. VITAL SIGNS: Afebrile, pulse 77, breathing at 16, blood pressure 159/68. HEENT: Head normocephalic and atraumatic. Eyes intact, no ulcers. Nose intact, no ulcers. Ears intact, no ulcers. NECK: Supple. No JVD. CHEST: Symmetrical and clear. CARDIOVASCULAR: Shows S1 and S2, no rub, no murmur. GASTROINTESTINAL: Abdomen is soft, bowel sounds positive. EXTREMITIES: Show no edema or ulcers. SKIN: Shows no rash or petechiae. MUSCULOSKELETAL: Shows no joint swelling or stiffness. GENITOURINARY: Shows no Rashid or CVA tenderness. NEUROLOGIC: The patient is confused. LABORATORY DATA: Show hemoglobin 7.6. Creatinine 1.1. ASSESSMENT AND PLAN: 1. Acute kidney injury, improved. 2. Hypertension, stable. 3. Anemia. We would recommend transfusion. Medication based on GFR appropriate. No indication for dialysis at this time. Job ID: [id number]
--- NOTE | 2020-07-22 15:46 | PRG ---
DATE OF SERVICE: 07/22/2020 SUBJECTIVE: The patient was seen this morning during rounds. She was lying in bed. The patient is confused, a little bit worse than yesterday. The patient's nurse reported that the patient was agitated last night and received some Seroquel. She has not worked with Physical Therapy and has not been up out of the bed. Nursing to place her in neuro chair today and help her to perform incentive spirometry. OBJECTIVE: VITAL SIGNS: Temperature 98.7, pulse 77, respirations 18, oxygen saturation 97% on 3 L nasal cannula, blood pressure 155/55. GENERAL: Elderly female, lying in bed with no signs of acute distress. PULMONARY: Equal chest rise and fall, clear breath sounds bilaterally in all lung amaro. No signs of acute respiratory distress. CARDIAC: Regular rate and rhythm. GI: Abdomen is soft, nontender, nondistended. EXTREMITIES: 2+ pulses in all extremities. Gross motor and sensation are intact. She has swelling to the bilateral thighs. Postop dressing to right lower extremity is clean, dry, and intact with no signs of oozing. LABORATORY FINDINGS: White count 21.6, hemoglobin 7.5, hematocrit 23.2, platelets 170. Sodium 137, potassium 4.6, chloride 105, bicarb 18, BUN 39, creatinine 1.12, glucose 209, phosphorus 2.5, magnesium 1.9. UA is negative for bacteria, ketones, blood, nitrites, and leukocyte esterase. DIAGNOSTIC FINDINGS: Chest x-ray completed this morning demonstrates cardiomegaly and pulmonary hypertension, no evidence of pneumonia. Ultrasound of the bilateral lower extremities demonstrates left popliteal vein not visible, no DVT of the rest of the major veins of the bilateral lower extremities. ASSESSMENT: 1. Status post ground level fall x2. 2. Left femoral condyle fracture, nonoperative. 3. Right midshaft femur fracture, status post repair. 4. Acute kidney injury on chronic kidney disease, improved. 5. Ileus, resolved. 6. Delirium, worsening. 7. Leukocytosis, etiology unknown. 8. History of diabetes, hypertension, hyperlipidemia, and depression. PLAN: Continue current diet and pain regimen. Continue physical and occupational therapy. Discontinued IV fluids yesterday evening. Increase to aggressive insulin sliding scale for better glucose control. The patient to be up out of bed and in the neuro chair today. Aggressive pulmonary hygiene. Etiology of leukocytosis is not clear at this time. Chest x-ray and UA have demonstrated no significant findings. The patient is afebrile, hemodynamically stable, not tachycardic. Chest x-ray does not demonstrate pneumonia. UA is negative. If the patient's condition changes based on her vital signs, we will grimes culture her. Otherwise, we will continue to follow. We will ask Orthopedic Surgery tomorrow to evaluate her wounds. We will increase her Seroquel to 50 mg at night only. We will promote good sleep hygiene tonight as well. Job ID: [id number]
[2020-07-22] MEDS: Insulin Regular 300 UNITS/3 ML VIAL SC PRN ×2 (18:12→21:37)
[2020-07-23 05:45] LABS: Anion Gap 15 mmol/L (10-20); BUN (Urea Nitrogen) 29 mg/dL (9.8-20.1); Calc. Creatinine Clearance 102 mL/min (70-130); Calcium 9.5 mg/dL (7.8-10.44); Carbon Dioxide 24 mmol/L (23-31); Chloride 105 mmol/L (98-107); Glucose 198 mg/dL (83-110); Magnesium 1.9 mg/dL (1.6-2.6); Phosphorus 2.7 mg/dL (2.3-4.7); Potassium 4.5 mmol/L (3.5-5.1); Sodium 139 mmol/L (136-145)
[2020-07-23] MEDS: Acetaminophen 325 MG TAB PO SCH ×4 (06:45→23:59)
[2020-07-23] MEDS: Insulin Regular 300 UNITS/3 ML VIAL SC PRN ×2 (06:46→11:57)
[2020-07-23 07:00] LABS: Band 13 % (5-11); Eosinophils 4 % (0-10); Hemoglobin 7.5 g/dL (12.0-16.0); Lymphocytes 14 % (21-51); MDiff Complete? YES; Mean Corpuscular HGB CONC 33.3 g/dL (32.0-36.0); Mean Corpuscular Hemoglobin 31.7 pg (27.0-31.0); Mean Corpuscular Volume 95.4 fL (78.0-98.0); Mean Platelet Volume 9.9 fL (7.4-10.4); Monocytes 9 % (0-10); Neutrophil 60 % (42-75); Platelet Count 197 thou/uL (130-400); RBC Distribution Width 12.1 % (11.5-14.5); Red Blood Cell (RBC) Count 2.36 mill/uL (4.20-5.40); White Blood Cell (WBC) Count 14.9 thou/uL (4.8-10.8)
[2020-07-23 09:04] LABS: ALT (SGPT) 40 U/L (8-55); AST (SGOT) 18 U/L (5-34); Albumin 2.9 g/dL (3.4-4.8); Alkaline Phosphatase 167 U/L (40-110); Bilirubin, Direct 0.5 mg/dL (0.1-0.3)
--- NOTE | 2020-07-23 09:08 | CT ---
Head CT without contrast 07/23/2020: COMPARISON: None HISTORY: Altered mental status TECHNIQUE: Axial CT imaging at 5 mm intervals from vertex through skull base without contrast FINDINGS: Mild mucosal thickening of the alveolar recess right maxillary sinus. There is encephalomal acia within the superior lateral aspect of the left frontal lobe suggesting an area of prior infarction. On the right there is encephalomalacia in the posterior temporal and parietal regions, al so suggesting an area of prior infarction. Foci of periventricular and deep white matter hypodensity noted, evidence of small vessel disease. No intracranial hemorrhage, midline shift, or ma ss effect. No acute osseous abnormality is evident. 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 No intracranial hemorrh age. If there is concern for acute infarction, brain MRI advised.
--- NOTE | 2020-07-23 09:27 | PRG ---
DATE OF SERVICE: 07/23/2020 SUBJECTIVE: A 74-year-old female being seen for acute kidney injury. The patient remains nonverbal. PHYSICAL EXAMINATION: General: The patient is awake and alert. The patient is resting. Vital Signs: Afebrile, pulse 78, breathing at 16, blood pressure 158/65. HEENT: Head normocephalic and atraumatic. Eyes intact, no ulcers. Nose intact, no ulcers. Ears intact, no ulcers. Neck: Supple. No JVD. Chest: Symmetrical and clear. Cardiovascular: Shows S1 and S2, no rub, no murmur. Gastrointestinal: Abdomen is soft, bowel sounds positive. Extremities: Show no edema or ulcers. Skin: Shows no rash or petechiae. Musculoskeletal: Shows no joint swelling or stiffness. Genitourinary: Shows no Rashid or CVA tenderness. Neurologic: Motor intact. Cranial nerves intact. The patient is resting. LABORATORY DATA: Creatinine 0.9. ASSESSMENT AND PLAN: 1. Acute kidney injury, improved. 2. Hypertension, stable. 3. Anemia, stable. I will sign off on this patient. Please reconsult as needed. Altered mental status. It was conveyed to the primary team for further evaluation and workup. Job ID: [id number]
[2020-07-23] MEDS: Ascorbic Acid 500 mg Chewable Tablet PO SCH (09:48)
[2020-07-23] MEDS: Senokot S 8.6-50 MG TAB PO SCH ×3 (09:48→20:54)
[2020-07-23] MEDS: Carvedilol 3.125 MG TAB PO SCH ×2 (09:48→17:25)
[2020-07-23] MEDS: Amlodipine 5 MG TAB PO SCH (09:49)
[2020-07-23] MEDS: Polyethylene Glycol 3350 17 GM Packet PO SCH ×2 (09:49→09:52)
[2020-07-23] MEDS: Ferrous Sulfate 325 MG TAB PO SCH ×2 (09:49→17:25)
[2020-07-23] MEDS: Escitalopram Oxalate 10 mg Tablet PO SCH ×2 (09:49→20:53)
[2020-07-23] MEDS: Heparin 5,000 UNITS/ML VIAL SC SCH ×3 (10:15→20:53)
--- NOTE | 2020-07-23 16:31 | PRG ---
DATE OF SERVICE: 07/23/2020 The patient was seen on 07/23/2020. SUBJECTIVE: Ms. Gonzalez is a 74-year-old female, who is hospital day #6, post injury day #6 from her left femoral condyle fracture. She is post injury day #4 from right femur fracture, status post repair. She was reported to have some delirium reported overnight. She was given Seroquel. She was more obtunded this morning, altered mental status. A stat CT brain showed no acute bleed. At the bedside, the patient appears to be sleepy, has periods of apnea. We have requested BiPAP to be started urgently. She has remained hemodynamically stable. OBJECTIVE: VITAL SIGNS: Temperature is 98.1, blood pressure is 147/72, heart rate is 70, breathing 16 to 17 times per minute, saturating 97%. GENERAL: This is a 74-year-old female, sitting up, somewhat lethargic, morbidly obese. HEENT: Normocephalic, atraumatic. Trachea is midline. RESPIRATORY: Equal rise and fall. Does have some periods of apnea. No wheezes are noted. CARDIOVASCULAR: Regular rate. ABDOMEN: Large, protuberant, soft. MUSCULOSKELETAL: She has surgery sites noted. Dressings are dry. She has warm distal extremities. SKIN: Warm and dry. NEURO: GCS is 13. She has 1 for eye opening to verbal stimuli and slight confusion. Otherwise, she does move her extremities. PSYCH: Withdrawn. DIAGNOSTIC CRITERIA: White blood cell count is 14.9, platelets are 197. Hemoglobin and hematocrit are 7.5 and 22.6 respectively. Sodium is 139, potassium 4.5, chloride is 105, CO2 is 24, BUN is 29, creatinine 0.94, glucose 198, calcium 9.5, phos is 2.7, magnesium 1.9. AST and ALT 18 and 40 respectively, alkaline phosphatase is 167. Total bilirubin is 1. CT brain shows old infarcts, nothing acute. No intracranial hemorrhage. ASSESSMENT AND PLAN: 1. Status post ground-level fall x2. 2. Left femoral condyle fracture, status post repair. 3. Right midshaft femur fracture, status post repair. 4. Acute kidney injury on chronic kidney disease, improving. 5. Ileus, resolved. 6. Acute respiratory failure, requiring noninvasive positive-pressure ventilation. Suspect obstructive sleep apnea/obesity hypoventilation syndrome. 7. Leukocytosis that is improving. 8. Acute traumatic pain. 9. Morbid obesity. 10. History of diabetes, hypertension, hyperlipidemia, and depression. PLAN: 1. We will start BiPAP now. 2. Closely monitor the patient. 3. FiO2 to maintain SpO2 greater than 92%. 4. We will transfer to [facility] for today. 5. Continue PT/OT orders. 6. Continue all other supportive care including pain control. 7. Stop Seroquel nightly. 8. Try to maintain sleep-wake cycles. 9. Has been approved for rehab. However, given her clinical decline over the last 24 hours, we will hold her discharge for today. We will re-evaluate in the morning. 10. We will continue to follow closely. Replace electrolytes. Updated the patient's daughter at the bedside, coordinated with the bedside RN as well as the [facility] staff. 11. Did notice the patient being hypertensive, hope this improves when her breathing gets somewhat better. If not, we will add additional oral medications to her regimen. Job ID: [id number]
[2020-07-23] MEDS ORDERED: Carvedilol 3.125 MG TAB PO SCH (20:15)
[2020-07-24] MEDS: hydrALAZINE 20 MG/ML VIAL SLOW IVP PRN ×2 (03:23→21:53)
[2020-07-24 04:21] LABS: Anion Gap 16 mmol/L (10-20); BUN (Urea Nitrogen) 28 mg/dL (9.8-20.1); Calc. Creatinine Clearance 115 mL/min (70-130); Calcium 9.3 mg/dL (7.8-10.44); Carbon Dioxide 24 mmol/L (23-31); Chloride 103 mmol/L (98-107); Glucose 192 mg/dL (83-110); Magnesium 1.8 mg/dL (1.6-2.6); Phosphorus 3.2 mg/dL (2.3-4.7); Potassium 4.3 mmol/L (3.5-5.1); Sodium 139 mmol/L (136-145)
[2020-07-24 04:43] LABS: Band 1 % (5-11); Eosinophils 2 % (0-10); Hemoglobin 8.3 g/dL (12.0-16.0); Lymphocytes 11 % (21-51); MDiff Complete? YES; Mean Corpuscular HGB CONC 33.7 g/dL (32.0-36.0); Mean Corpuscular Hemoglobin 31.6 pg (27.0-31.0); Mean Corpuscular Volume 93.7 fL (78.0-98.0); Mean Platelet Volume 9.4 fL (7.4-10.4); Metamyelocyte 2 % (0-0); Monocytes 16 % (0-10); Myelocyte 4 % (0-0); Neutrophil 64 % (42-75); Platelet Count 210 thou/uL (130-400); RBC Distribution Width 13.1 % (11.5-14.5); Red Blood Cell (RBC) Count 2.64 mill/uL (4.20-5.40)
[2020-07-24] MEDS: Acetaminophen/Codeine 30-300mg Tablet PO PRN ×3 (06:33→20:06)
[2020-07-24] MEDS: Insulin Regular 300 UNITS/3 ML VIAL SC PRN ×4 (06:36→21:32)
[2020-07-24] MEDS: Acetaminophen 325 MG TAB PO SCH ×4 (06:43→23:34)
[2020-07-24] MEDS ORDERED: Magnesium 2 GM/50 ML 2 GM in Premix Bag 1 BAG IVPB SCH (08:30)
[2020-07-24] MEDS: Senokot S 8.6-50 MG TAB PO SCH ×2 (08:45→20:08)
[2020-07-24] MEDS: Ascorbic Acid 500 mg Chewable Tablet PO SCH (08:49)
[2020-07-24] MEDS: Amlodipine 5 MG TAB PO SCH (08:49)
[2020-07-24] MEDS: Ferrous Sulfate 325 MG TAB PO SCH ×2 (08:49→17:47)
[2020-07-24] MEDS: Carvedilol 3.125 MG TAB PO SCH ×2 (08:49→17:46)
[2020-07-24] MEDS: Heparin 5,000 UNITS/ML VIAL SC SCH ×3 (08:50→20:06)
[2020-07-24] MEDS: Escitalopram Oxalate 10 mg Tablet PO SCH ×2 (08:50→20:08)
[2020-07-24] MEDS: Polyethylene Glycol 3350 17 GM Packet PO SCH (08:50)
--- NOTE | 2020-07-24 11:37 | PRG ---
DATE OF SERVICE: 07/24/2020 SUBJECTIVE: Delaney is a 74-year-old female, postop day 4 from open reduction and internal fixation via retrograde femoral nail of the right distal femur now. She is doing relatively well. She has some problems with mentation. She has been admitted to the [facility] for observation. I believe most of this has something to do with her sleep apnea and blood pressure changes. She also is receiving dialysis for acute on chronic renal insufficiency. OBJECTIVE: Visual inspection of the right lower extremity demonstrates her to have incision to be clean. Her bruising is appropriately expected at the mid thigh and on up to the area of the greater trochanter. It is minimally tender. She is neurovascularly intact in the right lower extremity and she has good sensation and distal pulses, neurovascularly intact. Eduardo are intact. IMPRESSION: This is a 74-year-old female, postop day 4, right distal femur open reduction with intramedullary retrograde nail fixation. PLAN: Continue current care. Continue to follow and we will expect transfer back to the floor prior to transfer to inpatient rehabilitation. Job ID: [id number]
[2020-07-24] MEDS ORDERED: Amlodipine 5 MG TAB PO SCH (15:30)
--- NOTE | 2020-07-24 15:31 | PRG ---
DATE OF SERVICE: 07/24/2020 SUBJECTIVE: Ms. Gonzalez is a 74-year-old woman. She is postoperative day #5, status post intramedullary nail to right femoral shaft fracture. The patient was transferred to [facility] yesterday due to worsening delirium and hypoxemic respiratory insufficiency. She was placed on noninvasive mechanical ventilator support overnight. This morning, she is awake and alert and more lucid and interactive. She tolerated breakfast this morning. OBJECTIVE: VITAL SIGNS: Currently includes blood pressure 174/70, pulse is 61, respiratory rate is 19, maximum temperature in the last 24 hours is 99.2 degrees Fahrenheit, and oxygen saturation currently is 95% on 2 L by nasal cannula oxygen. HEENT: Pupils are equal, round, and reactive to light and accommodation. She has no scleral icterus present. NECK: No jugular venous distention noted. HEART: Reveals regular rate and rhythm. LUNGS: Clear to auscultation bilaterally. Her breathing is regular and unlabored. ABDOMEN: Soft and obese. Nontender to palpation. NEUROLOGIC: Reveals no focal deficits present. LABORATORY FINDINGS: Today include a CBC with 11,000 white blood cells, hemoglobin and hematocrit of 8.3 and 24.7 respectively, and platelet count 210,000. Metabolic profile; sodium 139, potassium 4.3, chloride is 103, bicarb is 24, BUN is 28, creatinine is 0.83, glucose is 192, magnesium 1.8, and phosphorus 3.2. IMPRESSION: 1. Post injury day #14, status post fall. 2. Postoperative day #5, status post IM nail to right femur fracture. 3. Resolving acute delirium. PLAN: 1. Increase activity per Physical and Occupational Therapy. 2. Anticipate transfer to inpatient rehabilitation soon upon bed availability and insurance authorization. Meanwhile, we will continue to use intermittent noninvasive mechanical ventilator support for this patient's obvious history of obstructive sleep apnea. Job ID: [id number]
[2020-07-24] MEDS: Nystatin 500,000 UNITS/5 ML UDCUP SSW SCH ×2 (17:47→20:08)
[2020-07-25] MEDS: Acetaminophen 325 MG TAB PO SCH ×4 (05:31→23:48)
[2020-07-25] MEDS: Acetaminophen/Codeine 30-300mg Tablet PO PRN ×4 (05:32→20:50)
[2020-07-25] MEDS: Insulin Regular 300 UNITS/3 ML VIAL SC PRN ×4 (05:33→20:51)
[2020-07-25] MEDS: Ferrous Sulfate 325 MG TAB PO SCH ×2 (07:51→16:33)
[2020-07-25] MEDS: Escitalopram Oxalate 10 mg Tablet PO SCH ×2 (07:51→20:50)
[2020-07-25] MEDS: Ascorbic Acid 500 mg Chewable Tablet PO SCH (07:51)
[2020-07-25] MEDS: Carvedilol 3.125 MG TAB PO SCH ×2 (07:51→16:34)
[2020-07-25] MEDS: Amlodipine 5 MG TAB PO SCH (07:52)
[2020-07-25] MEDS: Nystatin 500,000 UNITS/5 ML UDCUP SSW SCH ×4 (07:53→20:49)
[2020-07-25] MEDS: Senokot S 8.6-50 MG TAB PO SCH ×2 (07:53→20:50)
[2020-07-25] MEDS: Polyethylene Glycol 3350 17 GM Packet PO SCH (07:54)
[2020-07-25] MEDS: Heparin 5,000 UNITS/ML VIAL SC SCH ×3 (08:03→20:49)
--- NOTE | 2020-07-25 11:42 | PRG ---
DATE OF SERVICE: 07/25/2020 SUBJECTIVE: Ms. Gonzalez is a 74-year-old woman. She is postoperative day #6 status post intramedullary nail to right femoral shaft fracture. The patient is more alert and interactive this morning. She reports adequate pain control. She was on BiPAP overnight. This morning, however, she is on nasal cannula oxygen. Urinary output remains adequate for this patient's age and weight. OBJECTIVE: VITAL SIGNS: This morning include blood pressure 160/68, pulse is 62, respiratory rate is 17, maximum temperature in last 24 hours is 99 degrees Fahrenheit, oxygen saturation is 95% on 5 L high-flow nasal cannula oxygen. HEENT: Pupils equal, round, reactive to light bilaterally. HEART: Reveals regular rate and rhythm. LUNGS: Reveal scattered rhonchi. Breathing, regular and nonlabored. ABDOMEN: Soft, nontender, nondistended. NEUROLOGIC: Reveals no focal deficits present. IMPRESSION: 1. Postoperative day #6 status post IM nail right femur shaft fracture. 2. Resolved acute delirium. 3. Resolving acute pulmonary insufficiency. PLAN: 1. Increase activity per Physical and Occupational Therapy. 2. Continue with gentle diuresis. 3. Patient is certainly hemodynamically stable for transfer to inpatient rehabilitation upon bed availability and insurance authorization. Job ID: [id number]
[2020-07-25] MEDS ORDERED: Furosemide 40 MG/4 ML VIAL SLOW IVP SCH (11:45)
[2020-07-25] MEDS: hydrALAZINE 20 MG/ML VIAL SLOW IVP PRN (14:53)
[2020-07-25] MEDS: Calcium Carbonate 500 MG ChewTAB PO PRN (17:01)
[2020-07-26] MEDS: Acetaminophen 325 MG TAB PO SCH ×3 (06:16→17:32)
[2020-07-26] MEDS: Insulin Regular 300 UNITS/3 ML VIAL SC PRN ×4 (06:17→20:55)
[2020-07-26 08:01] LABS: #Eosinphils 0.6 thou/uL (0.0-0.7); #Lymphocytes 1.8 thou/uL (1.20-3.40); #Monocytes 1.3 thou/uL (0.11-0.59); #Neutrophils 6.9 thou/uL (1.40-6.50); %Basophils 0.3 % (0.0-1.0); %Eosinophils 5.9 % (0.0-10.0); %Lymphocytes 17.2 % (21.0-51.0); %Monocytes 11.7 % (0.0-10.0); %Neutrophils 64.8 % (42.0-75.0); Hemoglobin 8.7 g/dL (12.0-16.0); Mean Corpuscular Hemoglobin 30.5 pg (27.0-31.0); Mean Corpuscular Volume 95.3 fL (78.0-98.0); Mean Platelet Volume 8.8 fL (7.4-10.4); Platelet Count 259 thou/uL (130-400); RBC Distribution Width 12.8 % (11.5-14.5); Red Blood Cell (RBC) Count 2.85 mill/uL (4.20-5.40); White Blood Cell (WBC) Count 10.7 thou/uL (4.8-10.8)
[2020-07-26 08:19] LABS: Anion Gap 12 mmol/L (10-20); BUN (Urea Nitrogen) 24 mg/dL (9.8-20.1); Calc. Creatinine Clearance 109 mL/min (70-130); Calcium 9.2 mg/dL (7.8-10.44); Carbon Dioxide 28 mmol/L (23-31); Chloride 100 mmol/L (98-107); Glucose 180 mg/dL (83-110); Magnesium 1.8 mg/dL (1.6-2.6); Phosphorus 3.4 mg/dL (2.3-4.7); Potassium 3.9 mmol/L (3.5-5.1); Sodium 136 mmol/L (136-145)
[2020-07-26] MEDS ORDERED: Metolazone 2.5 MG TAB PO SCH (09:00)
[2020-07-26] MEDS: Escitalopram Oxalate 10 mg Tablet PO SCH ×2 (09:09→20:54)
[2020-07-26] MEDS: Furosemide 40 MG TAB PO SCH (09:09)
[2020-07-26] MEDS: Senokot S 8.6-50 MG TAB PO SCH ×2 (09:09→20:54)
[2020-07-26] MEDS: Carvedilol 3.125 MG TAB PO SCH ×2 (09:09→17:34)
[2020-07-26] MEDS: Amlodipine 5 MG TAB PO SCH (09:10)
[2020-07-26] MEDS: Mag-Al 1200 mg/1200 mg/30 ML UDCUP PO PRN (09:11)
[2020-07-26] MEDS: Nystatin 500,000 UNITS/5 ML UDCUP SSW SCH ×4 (09:11→20:54)
[2020-07-26] MEDS: Polyethylene Glycol 3350 17 GM Packet PO SCH (09:11)
[2020-07-26] MEDS: Ferrous Sulfate 325 MG TAB PO SCH ×2 (09:11→17:32)
[2020-07-26] MEDS: Acetaminophen/Codeine 30-300mg Tablet PO PRN ×2 (09:12→13:34)
[2020-07-26] MEDS: Heparin 5,000 UNITS/ML VIAL SC SCH ×3 (09:17→20:54)
[2020-07-26 10:49] LABS: Troponin I 0.019 ng/mL (< 0.028)
[2020-07-26] MEDS: hydrALAZINE 20 MG/ML VIAL SLOW IVP PRN (14:15)
--- NOTE | 2020-07-26 14:52 | PRG ---
DATE OF SERVICE: 07/26/2020 SUBJECTIVE: The patient was seen this morning during rounds. She was sitting up. Awake, alert, and oriented. Nursing reported no acute events overnight. The patient continues to complain of epigastric pain. She states that it is a sharp kind of pain much worse when she eats foods such as bread. Reports the medications was given previously including PPI and Tums have not helped to resolve the issue and has been going on over the past 3 or 4 days. She has had her gallbladder removed previously. States that she has not had this type of epigastric pain previously. OBJECTIVE: VITAL SIGNS: Temperature 97.6, pulse 72, respirations 18, oxygen saturation 96% on nasal cannula, blood pressure 112/56. GENERAL: Well-appearing elderly female, sitting up in bed, having breakfast with no signs of acute distress. PULMONARY: Equal chest rise and fall. Clear breath sounds bilaterally. No signs of acute respiratory distress. CARDIAC: Regular rate and rhythm. GI: Abdomen is soft, mildly tender to palpation in the epigastric area, nondistended. EXTREMITIES: 2+ pulses in all extremities. No significant swelling noted. NEURO: GCS is 15. LABORATORY FINDINGS: White count 10.7, hemoglobin 8.7, hematocrit 27.1, platelets 259. Sodium 136, potassium 3.9, chloride 100, bicarb 28, BUN 24, creatinine 0.88, glucose 180, phosphorus 3.2, magnesium 1.8. Troponin 0.019. DIAGNOSTIC FINDINGS: There are no new diagnostic findings to report. ASSESSMENT: 1. Status post fall from standing. 2. Left femoral condyle fracture, nonoperative. 3. Right femur fracture, status post repair. 4. Acute kidney injury on chronic kidney disease, improved. 5. Ileus, resolved. 6. Epigastric pain, persistent. 7. Delirium, resolving. 8. Oral thrush. PLAN: Continue current diet and pain regimen. Continue physical and occupational therapy. Continue BiPAP at night. Continue Lasix 40 mg p.o. once a day. The patient received Zaroxolyn once today. We will send off blood for H pylori. Dr. Feliciano has recommended a consult by GI for evaluation of epigastric pain, possible scope. We will follow up their recommendations. The patient will be transferred to [place] [id number] today. We will work very diligently with Nursing to maintain a good sleep hygiene to prevent delirium. This patient was seen and evaluated by Dr. Feliciano and myself this morning during rounds. Job ID: [id number]
--- NOTE | 2020-07-26 15:53 | CON ---
DATE OF CONSULTATION: 07/26/2020 REASON FOR CONSULTATION: Consult ordered by Adrianne Pelletier for epigastric pain. HISTORY OF PRESENT ILLNESS: Ms. Gonzalez is a 74-year-old female who has been in this hospital since she was admitted on 07/15 for a fall 3 days prior and had a nondisplaced fracture of her left knee. She is admitted for observation at that time. She has been here ever sense. Apparently, she had another fall while she was here and broke her right femur and that was repaired on the . She has been in the Trauma Service and apparently was getting ready to go home when she states she had worse abdominal pain in the epigastrium yesterday after having ice chips. It felt like a very squeezing terrible pain. She states that she has had pain like this on and off for several months, even before she came to the hospital. She has not noticed eating hot things or cold things make it worse. She has had some reflux in the past. She states she had her gallbladder out several years ago, but it was not like that type of pain. She has had a colonoscopy about 6 years ago in [place], [place], where she was normal and she states she had an ulcer 20 years ago diagnosed by the scope. She states she has had abdominal surgeries, but does not think her stomach was operated on. Presently, she is without discomfort. She denies dysphagia, odynophagia, reflux, or weight loss. She has had no fever or chills. REVIEW OF SYSTEMS: She denies any shortness of breath or dyspnea on exertion, although she is on oxygen right now 3 L nasal cannula. She denies any history of heart problems and does have dyspnea on exertion easily, but denies any chest pain or epigastric pain with exertion. PAST MEDICAL HISTORY: Hypertension, hyperlipidemia, obesity, diabetes, depression. PAST SURGICAL HISTORY: Appendectomy, cholecystectomy, hysterectomy, bilateral knee replacements, tonsillectomy, bladder left ankle reconstruction and then right femur surgery pending for fall this hospitalization. SOCIAL HISTORY: Denies alcohol, drugs, or tobacco. She lives apparently at [facility] with her . REVIEW OF SYSTEMS: As per HPI and as above and admitting notes. HOME MEDICATIONS: 1. Furosemide. 2. Losartan. 3. Carvedilol. 4. Escitalopram. 5. Insulin. 6. Metformin. Present medications: 1. MiraLAX p.r.n. 2. Protonix. 3. Zofran. 4. Lactulose daily. 5. Insulin sliding scale. 6. Hydralazine. 7. Heparin. 8. Lasix 40 mg daily. 9. Iron 325 mg daily. 10. Cyclobenzaprine. 11. Lexapro. 12. Carvedilol. 13. Tums. 14. Norvasc. 15. DuoNeb. 16. Tylenol 3. PHYSICAL EXAMINATION: VITAL SIGNS: Temperature is 98, pulse 71, blood pressure 107/55, heart rate 64. GENERAL: She is morbidly obese. She is lying in bed. She is in no distress. OROPHARYNX: No lesions. NECK: Supple. No adenopathy. LUNGS: Clear. HEART: Regular rate and rhythm without clicks or murmurs. ABDOMEN: Soft. She had a well-healed midline scar. She has no rebound. She has no guarding. She has no palpable hepatosplenomegaly. No evidence of inguinal hernias. EXTREMITIES: Reveal obesity. SKIN: Normal turgor. LABORATORY DATA: Today, white count 10.7, hemoglobin is 8.7, it has been stable since admission as she was 12.4, but she has been between 10 and 8 since that time. She received 1 unit of blood on . Sodium 137, potassium 3.9, BUN and creatinine of 24 and 0.8. Magnesium, phosphorus, calcium normal. Troponin 0.019 showed a bilirubin of 1 on the . AST of 18, ALT of 40, alkaline phosphatase was 67, albumin 2.9. Urine negative on admission. SARS negative on admission. Brain CT on 07/23 secondary to altered mental status negative except for small-vessel disease. Chest x-ray on 07/22, cardiomegaly, pulmonary hypertension. No pneumonia. Venogram, 07/22, no DVTs. Renal ultrasound on 07/20 negative. ASSESSMENT: 1. Chronic abdominal pain predating admission to the hospital. This could be related to her diabetes. She has a hemoglobin of 8.7 on admission. This could be related to reflux or heartburn, could be esophageal spasm, could be cardiac. 2. Chronic anemia. No signs of GI bleed. She has normal hemoglobin on admission. This is likely related to blood loss from her surgery. She has had no evidence of bleeding here. This could be a component of constipation as well. RECOMMENDATIONS: 1. Obtain abdominal sounds. 2. EGD tomorrow. 3. PPI. 4. Avoid NSAIDs. 5. If symptoms persist, they want to consider cardiac evaluation and seems she is on some significant cardiac medications and probably has a significant cardiac history and is not documented in admission H and P that she is not aware of. I suspect she has probably got a component of heart failure. Thank you for this consult. We will proceed tomorrow. Job ID: [id number]
[2020-07-27] MEDS: Acetaminophen 325 MG TAB PO SCH ×5 (00:48→23:48)
[2020-07-27] MEDS: Acetaminophen/Codeine 30-300mg Tablet PO PRN ×2 (00:57→20:22)
[2020-07-27] MEDS: Cyclobenzaprine 10 MG TAB PO PRN ×2 (00:57→18:30)
[2020-07-27 05:46] LABS: #Basophils 0.1 thou/uL (0.0-0.2); #Eosinphils 0.6 thou/uL (0.0-0.7); #Lymphocytes 2.1 thou/uL (1.20-3.40); #Monocytes 1.1 thou/uL (0.11-0.59); #Neutrophils 5.5 thou/uL (1.40-6.50); %Basophils 0.7 % (0.0-1.0); %Eosinophils 6.8 % (0.0-10.0); %Monocytes 11.9 % (0.0-10.0); %Neutrophils 58.6 % (42.0-75.0); Hemoglobin 8.2 g/dL (12.0-16.0); Mean Corpuscular HGB CONC 33.1 g/dL (32.0-36.0); Mean Corpuscular Hemoglobin 31.1 pg (27.0-31.0); Mean Corpuscular Volume 93.9 fL (78.0-98.0); Mean Platelet Volume 8.9 fL (7.4-10.4); Platelet Count 241 thou/uL (130-400); RBC Distribution Width 12.6 % (11.5-14.5); Red Blood Cell (RBC) Count 2.63 mill/uL (4.20-5.40); White Blood Cell (WBC) Count 9.4 thou/uL (4.8-10.8)
[2020-07-27 06:08] LABS: Phosphorus 3.4 mg/dL (2.3-4.7)
[2020-07-27 06:09] LABS: ALT (SGPT) 28 U/L (8-55); AST (SGOT) 33 U/L (5-34); Albumin 2.7 g/dL (3.4-4.8); Alkaline Phosphatase 263 U/L (40-110); Anion Gap 12 mmol/L (10-20); BUN (Urea Nitrogen) 21 mg/dL (9.8-20.1); Bilirubin, Direct 0.8 mg/dL (0.1-0.3); Bilirubin, Total 1.5 mg/dL (0.2-1.2); Calc. Creatinine Clearance 111 mL/min (70-130); Calcium 8.9 mg/dL (7.8-10.44); Carbon Dioxide 31 mmol/L (23-31); Chloride 98 mmol/L (98-107); Glucose 171 mg/dL (83-110); Lipase 16 U/L (8-78); Magnesium 1.7 mg/dL (1.6-2.6); Potassium 3.9 mmol/L (3.5-5.1); Protein, Total 5.5 g/dL (6.0-8.3); Sodium 137 mmol/L (136-145)
[2020-07-27] MEDS: Furosemide 40 MG TAB PO SCH (06:10)
[2020-07-27] MEDS: Insulin Regular 300 UNITS/3 ML VIAL SC PRN ×4 (06:10→20:27)
[2020-07-27] MEDS: Heparin 5,000 UNITS/ML VIAL SC SCH ×3 (09:00→20:22)
--- NOTE | 2020-07-27 09:30 | RAD ---
KUB INDICATION: Abdominal pain COMPARISON: None FINDINGS: Bowel gas: Nonspecific but without overt appearance of obstruction. Lung bases: Clear. Additional findings: There are severe vascular calcifications seen involving the visualized vasculatu re. Osseous structures: There is scattered degenerative and osteoarthritic change present. There is parti al visualization of an intramedullary usha within the proximal right femur. There is diffuse osteopenia. IMPRESSION: 1. No acute abnormality.
[2020-07-27] MEDS ORDERED: PROPOFOL 200 MG/20 ML VIAL ONE (10:38)
[2020-07-27] MEDS ORDERED: Pantoprazole 40 MG VIAL IVP SCH ×2 (11:14→11:30)
--- NOTE | 2020-07-27 11:32 | OP ---
DATE OF PROCEDURE: 07/27/2020 PROCEDURE PERFORMED: Esophagogastroduodenoscopy. PREPROCEDURE DIAGNOSES: 1. Epigastric pain, especially with swallowing cold liquids, several months, worse here in the hospital. 2. Previous cholecystectomy. 3. Elevated alkaline phosphatase with recent bone fracture. 4. Mild anemia, stable, worsened after hip surgery. POSTPROCEDURE DIAGNOSES: 1. LA grade D erosive esophagitis, distal half of the esophagus, biopsied. 2. Otherwise normal EGD. RECOMMENDATIONS: 1. IV Protonix q.12 hours. 2. If symptoms persist, consider CAT scan of upper abdomen. She has mildly elevated LFTs and previous cholecystectomy. 3. We would check iron stores and B12 and folate. 4. I will follow up on the biopsies. Otherwise, follow from a distance. Please call if I can be of further assistance in the patient's care. ANESTHESIA: TIVA. DESCRIPTION OF PROCEDURE: After the patient was informed of the risks, benefits, and possible complications of endoscopy including perforation, reaction to medication, and aspiration, informed consent was obtained and the patient was brought to endoscopy suite, where she was sedated in gradual fashion. Once she was comfortable, a bite block placed in the incisural orifice. The endoscope was advanced through the esophagus, stomach, into the second and third portions of the duodenum and slowly removed. The esophagus was notable for severe erosive esophagitis in the distal half of the esophagus. There were no punctate erosions or vesicles to indicate a viral process. This seems to be reflux related. Biopsies were obtained, however, and submitted to Pathology. The stomach was entered and found to be normal in forward and retroflexed views. The duodenum was normal to third portion. The scope was removed, the patient tolerated the procedure well, and there were no complications. Job ID: [id number]
[2020-07-27] MEDS: Nystatin 500,000 UNITS/5 ML UDCUP SSW SCH ×4 (12:45→20:22)
[2020-07-27] MEDS: Senokot S 8.6-50 MG TAB PO SCH ×2 (12:45→20:22)
[2020-07-27] MEDS: Ferrous Sulfate 325 MG TAB PO SCH ×2 (12:46→16:18)
[2020-07-27] MEDS: Carvedilol 3.125 MG TAB PO SCH ×2 (12:46→16:18)
[2020-07-27] MEDS: Amlodipine 5 MG TAB PO SCH (12:46)
[2020-07-27] MEDS: Escitalopram Oxalate 10 mg Tablet PO SCH ×2 (12:47→20:22)
[2020-07-27] MEDS: Polyethylene Glycol 3350 17 GM Packet PO SCH (12:50)
[2020-07-27] MEDS: Pantoprazole 40 MG VIAL IVP SCH (20:21)
--- NOTE | 2020-07-27 21:35 | PRG ---
DATE OF SERVICE: SUBJECTIVE: The patient is currently on the surgical floor. She was admitted status post fall from standing with a delayed presentation. She sustained a left femoral condyle fracture that is being treated nonoperatively. Unfortunately, during her hospital stay, she had a ground level fall, in which she sustained a right femur fracture, for which she has undergone surgical repair. Most recently, she has been having persistent epigastric pain. Dr. Quiroz evaluated her and recommended EGD, which she underwent today, revealing erosive esophagitis of the distal half of her esophagus. See his op notes regarding that. Otherwise, the patient is slowly working with Physical and Occupational Therapy. We are currently awaiting placement. PHYSICAL EXAMINATION: VITAL SIGNS: Temperature is 98, heart rate 63, blood pressure 138/52, respirations 18, and oxygen saturation is 95% on 2 L via nasal cannula. GENERAL: The patient is resting comfortably in bed. She appears sleepy as she is still recovering from her procedure, but she does awaken and respond. HEENT: Unremarkable. RESPIRATIONS: Nonlabored. Equal rise and fall of the chest. ABDOMEN: Nondistended. EXTREMITIES: Neurovascularly intact x4. LABORATORY FINDINGS: White blood cell count 9.4, hemoglobin 8.2, hematocrit 24.7, platelets 241. Sodium 137, potassium 3.9, chloride 98, CO2 of 31, BUN 21, creatinine 0.86, glucose 171, magnesium 1.7, phosphorus 3.4, total bilirubin 1.5, direct bilirubin 0.8, AST 33, ALT 28, alkaline phosphatase 263, lipase 16. RADIOGRAPHS: Abdominal x-ray shows no acute abnormality. ASSESSMENT: 1. Status post ground level fall with delayed presentation. 2. Left femoral condyle fracture, nonoperative. 3. Status post open reduction and internal fixation of right femur fracture. 4. Acute on chronic kidney disease, improved. 5. Ileus, resolved. 6. Delirium, resolving. 7. Oral thrush, improving. 8. Erosive esophagitis. PLAN: Will be to continue supportive care, encourage physical and occupational therapy. Resume home medication. Do IV Protonix twice daily per GI recommendations and continue awaiting placement decision. Job ID: [id number]
[2020-07-27] MEDS: hydrALAZINE 20 MG/ML VIAL SLOW IVP PRN (23:59)
[2020-07-28 05:32] LABS: #Eosinphils 0.6 thou/uL (0.0-0.7); #Lymphocytes 2.1 thou/uL (1.20-3.40); #Monocytes 1.2 thou/uL (0.11-0.59); #Neutrophils 5.6 thou/uL (1.40-6.50); %Basophils 0.4 % (0.0-1.0); %Eosinophils 6.2 % (0.0-10.0); %Lymphocytes 21.8 % (21.0-51.0); %Monocytes 12.3 % (0.0-10.0); %Neutrophils 59.2 % (42.0-75.0); Hemoglobin 8.9 g/dL (12.0-16.0); Mean Corpuscular Hemoglobin 31.1 pg (27.0-31.0); Mean Platelet Volume 9.1 fL (7.4-10.4); Platelet Count 287 thou/uL (130-400); RBC Distribution Width 12.7 % (11.5-14.5); Red Blood Cell (RBC) Count 2.87 mill/uL (4.20-5.40); White Blood Cell (WBC) Count 9.4 thou/uL (4.8-10.8)
[2020-07-28 05:50] LABS: Magnesium 1.5 mg/dL (1.6-2.6)
[2020-07-28] MEDS: Acetaminophen 325 MG TAB PO SCH ×3 (06:06→18:10)
[2020-07-28] MEDS: Insulin Regular 300 UNITS/3 ML VIAL SC PRN ×4 (06:07→21:21)
[2020-07-28] MEDS: Furosemide 40 MG TAB PO SCH (06:15)
[2020-07-28 06:16] LABS: Ferritin 288.23 ng/mL (10-291)
[2020-07-28] MEDS: Carvedilol 3.125 MG TAB PO SCH ×2 (08:12→16:26)
[2020-07-28] MEDS: Escitalopram Oxalate 10 mg Tablet PO SCH ×2 (08:12→21:21)
[2020-07-28] MEDS: Acetaminophen/Codeine 30-300mg Tablet PO PRN ×2 (08:13→16:27)
[2020-07-28] MEDS: Amlodipine 5 MG TAB PO SCH (08:13)
[2020-07-28] MEDS: Ferrous Sulfate 325 MG TAB PO SCH ×2 (08:14→16:20)
[2020-07-28] MEDS: Heparin 5,000 UNITS/ML VIAL SC SCH ×3 (08:16→21:20)
[2020-07-28] MEDS: Senokot S 8.6-50 MG TAB PO SCH ×2 (08:17→21:21)
[2020-07-28] MEDS: Polyethylene Glycol 3350 17 GM Packet PO SCH (08:17)
[2020-07-28] MEDS: Pantoprazole 40 MG VIAL IVP SCH ×2 (08:17→21:20)
[2020-07-28] MEDS: Nystatin 500,000 UNITS/5 ML UDCUP SSW SCH ×4 (08:31→21:21)
--- NOTE | 2020-07-28 11:43 | PRG ---
DATE OF SERVICE: 07/28/2020 SUBJECTIVE: Ms. Gonzalez states she had epigastric chest pain when she had eggs today. She is eating, lying in bed. OBJECTIVE: VITAL SIGNS: Temperature is 98, pulse 63, respirations 16, and blood pressure 137/50. ABDOMEN: Soft and nontender. LABORATORY DATA: White count 9.4, hemoglobin 8.9, platelet count 287. Magnesium 1.5, iron 90, TIBC 230, ferritin 288, B12 of 847, folate 7. ASSESSMENT: 1. Status post leg fractures. 2. Prolonged hospitalization. 3. Morbid obesity. 4. Epigastric pain, likely related to severe erosive distal esophagitis. RECOMMENDATIONS: 1. Continue IV PPI b.i.d. 2. The patient needs to get out of bed. She has not been out of bed. She needs to get out of bed to eat as well for all meals and stay in an upright position for 1 hour after eating. Job ID: [id number]
[2020-07-28] MEDS: Cyclobenzaprine 10 MG TAB PO PRN (21:38)
[2020-07-29] MEDS: Acetaminophen 325 MG TAB PO SCH ×5 (00:15→23:32)
[2020-07-29] MEDS: hydrALAZINE 20 MG/ML VIAL SLOW IVP PRN (00:15)
[2020-07-29 06:21] LABS: #Basophils 0.1 thou/uL (0.0-0.2); #Eosinphils 0.8 thou/uL (0.0-0.7); #Lymphocytes 2.2 thou/uL (1.20-3.40); #Monocytes 1.3 thou/uL (0.11-0.59); #Neutrophils 6.4 thou/uL (1.40-6.50); %Basophils 0.7 % (0.0-1.0); %Eosinophils 7.5 % (0.0-10.0); %Lymphocytes 20.6 % (21.0-51.0); %Monocytes 11.6 % (0.0-10.0); %Neutrophils 59.6 % (42.0-75.0); Hemoglobin 9.3 g/dL (12.0-16.0); Mean Corpuscular HGB CONC 33.5 g/dL (32.0-36.0); Mean Corpuscular Hemoglobin 31.1 pg (27.0-31.0); Mean Corpuscular Volume 92.9 fL (78.0-98.0); Mean Platelet Volume 9.1 fL (7.4-10.4); Platelet Count 317 thou/uL (130-400); RBC Distribution Width 12.6 % (11.5-14.5); White Blood Cell (WBC) Count 10.7 thou/uL (4.8-10.8)
[2020-07-29] MEDS: Insulin Regular 300 UNITS/3 ML VIAL SC PRN ×4 (06:27→20:43)
[2020-07-29] MEDS: Furosemide 40 MG TAB PO SCH (06:29)
[2020-07-29 06:44] LABS: Anion Gap 14 mmol/L (10-20); BUN (Urea Nitrogen) 19 mg/dL (9.8-20.1); Calc. Creatinine Clearance 100 mL/min (70-130); Calcium 9.2 mg/dL (7.8-10.44); Carbon Dioxide 30 mmol/L (23-31); Chloride 94 mmol/L (98-107); Glucose 180 mg/dL (83-110); Magnesium 1.4 mg/dL (1.6-2.6); Phosphorus 3.1 mg/dL (2.3-4.7); Potassium 3.4 mmol/L (3.5-5.1); Sodium 135 mmol/L (136-145)
[2020-07-29] MEDS ORDERED: Magnesium Sulfate 3 GM in Sodium Chloride 0.9% 250 ML 250 ML IVPB SCH (07:30)
[2020-07-29] MEDS: Senokot S 8.6-50 MG TAB PO SCH ×2 (08:47→22:35)
[2020-07-29] MEDS: Ferrous Sulfate 325 MG TAB PO SCH ×2 (08:48→17:08)
[2020-07-29] MEDS: Escitalopram Oxalate 10 mg Tablet PO SCH ×2 (08:48→20:43)
[2020-07-29] MEDS: Carvedilol 3.125 MG TAB PO SCH ×2 (08:48→16:33)
[2020-07-29] MEDS: Heparin 5,000 UNITS/ML VIAL SC SCH ×3 (08:48→20:43)
[2020-07-29] MEDS: Amlodipine 5 MG TAB PO SCH (08:48)
[2020-07-29] MEDS: Polyethylene Glycol 3350 17 GM Packet PO SCH (08:51)
[2020-07-29] MEDS: Pantoprazole 40 MG VIAL IVP SCH ×2 (08:56→20:43)
[2020-07-29] MEDS ORDERED: Sodium Phosphate 30 MMOL in Sodium Chloride 0.9% 250 ML 250 ML IVPB SCH (09:00)
[2020-07-29] MEDS: Nystatin 500,000 UNITS/5 ML UDCUP SSW SCH ×4 (10:15→20:43)
--- NOTE | 2020-07-29 12:29 | PRG ---
DATE OF SERVICE: 07/29/2020 SUBJECTIVE: Ms. Gonzalez states that she is not having as much epigastric pain when she eats. OBJECTIVE: VITAL SIGNS: Temperature is 98, pulse 66, blood pressure 150/74. GENERAL: She is overweight. ABDOMEN: Nontender. ASSESSMENT: Severe reflux esophagitis. Biopsies pending to rule out viral etiologies, improved with b.i.d. PPI IV. RECOMMENDATIONS: 1. Advance diet. 2. Sit up in chair to eat. 3. Physical therapy. 4. The patient can go home on b.i.d. PPI orally. If she is going to rehab, she may benefit from a few more days of IV. At this time, we will sign off. I will follow up on her pathology. If GI can be of any further assistance, please do not hesitate to re-consult. Job ID: [id number]
[2020-07-29 18:12] LABS: H. pylori IgA ABS Less than 9.0 units (0.0-8.9); H. pylori IgG ABS 3.28 (0.00-0.79); H. pylori IgM ABS Less than 9.0 units (0.0-8.9)
--- NOTE | 2020-07-29 22:37 | PRG ---
DATE OF SERVICE: 07/29/2020 This is Pankaj Mohr PA-C dictating a report for Kalin Feliciano DO. SUBJECTIVE: The patient is hospital day 12 status post admission for a delayed fall presentation in which she sustained a left femoral condyle fracture. Unfortunately, she had a fall in the hospital in which she sustained a right femur fracture. She has undergone operative repair of that. She has also been evaluated for epigastric pain, which Dr. Quiroz did an distal esophageal esophagitis. The patient was placed on IV PPI for that and per Dr. Quiroz she may be switched to orals at time of discharge. Overnight, the patient had no issues. This morning she reports her pain is controlled. She is tolerating a diet. [facility]. PHYSICAL EXAMINATION: VITAL SIGNS: Temperature is 98.0, heart rate 63, blood pressure 150/68, respirations 18, oxygen saturation 95% on room air. GENERAL: The patient is resting comfortably in bed. She has just finished breakfast which she reports that she did not get out of bed for. We had a lengthy conversation regarding this. Her [place] Coma Scale is 15. HEENT: Unremarkable. LUNGS: Clear to auscultation with good inspiratory and expiratory effort. HEART: Regular rate and rhythm. ABDOMEN: Soft, flat, nontender with active bowel sounds. EXTREMITIES: Neurovascularly intact x4. LABORATORY FINDINGS: White blood cell count 10.7, hemoglobin 9.3, hematocrit 27.9, platelets 317. Sodium 135, potassium 3.4, chloride 94, CO2 30, BUN 19, creatinine 0.96, glucose 180, magnesium 1.4, phosphorus 3.1. There are no radiographs to review. ASSESSMENT/PLAN: 1. Status post ground level fall with delayed presentation. 2. Left femoral condyle fracture, nonoperative. 3. Status post open reduction and internal fixation of right femur fracture. 4. Acute on chronic kidney disease, resolved. 5. Ileus, resolved. 6. Delirium, resolved. 7. Oral thrush, improving. 8. Erosive esophagitis, continue treatment with Protonix twice daily. We will switch to orals at time of discharge. PLAN: Plan will be to continue supportive care as above, encourage physical and occupational therapy and await placement. The patient was evaluated this morning with Dr. Feliciano during rounds. Job ID: [id number]
[2020-07-29] MEDS: Cyclobenzaprine 10 MG TAB PO PRN (23:32)
[2020-07-30] MEDS: Acetaminophen 325 MG TAB PO SCH ×3 (05:28→17:28)
[2020-07-30] MEDS: Insulin Regular 300 UNITS/3 ML VIAL SC PRN ×3 (05:29→16:39)
[2020-07-30] MEDS: Furosemide 40 MG TAB PO SCH (06:22)
[2020-07-30] MEDS: Escitalopram Oxalate 10 mg Tablet PO SCH (08:40)
[2020-07-30] MEDS: Amlodipine 5 MG TAB PO SCH (08:40)
[2020-07-30] MEDS: Carvedilol 3.125 MG TAB PO SCH ×2 (08:40→16:38)
[2020-07-30] MEDS: Ferrous Sulfate 325 MG TAB PO SCH ×2 (08:41→16:38)
[2020-07-30] MEDS: Heparin 5,000 UNITS/ML VIAL SC SCH ×2 (08:42→14:33)
[2020-07-30] MEDS: Polyethylene Glycol 3350 17 GM Packet PO SCH (08:43)
[2020-07-30] MEDS: Nystatin 500,000 UNITS/5 ML UDCUP SSW SCH ×3 (08:43→16:38)
[2020-07-30] MEDS: Senokot S 8.6-50 MG TAB PO SCH (08:43)
[2020-07-30] MEDS: Pantoprazole 40 MG VIAL IVP SCH (08:43)
[2020-07-30] MEDS: Acetaminophen/Codeine 30-300mg Tablet PO PRN (08:47)
--- NOTE | 2020-07-30 10:53 | PRG ---
DATE OF SERVICE: 07/30/2020 SUBJECTIVE: Delaney is a 74-year-old female, postop day 10 from a right distal femoral metadiaphyseal fracture treated with retrograde nail. She is doing relatively well. She has been transferred from the intensive care unit back to the floor and she has difficulty walking at this point. I believe, the Trauma team has plans for an inpatient rehabilitation stay. OBJECTIVE: VITAL SIGNS: Temperature 98.5, pulse 64, respiratory rate 18, blood pressure is 139/75. GENERAL: She is alert and oriented to person, place, time, and situation. Responsive and appropriate with examiner. Incisions are clean. No strike through. No erythema. LABORATORY DATA: Hemoglobin and hematocrit 9.3 and 27.9. IMPRESSION: A 74-year-old female, postop day 9 from a retrograde right femoral nail for a metadiaphyseal femur fracture. PLAN: Continue current care. Disposition per Trauma Team. Continue to follow for hemoglobin and hematocrit. Job ID: [id number]
[2020-07-30] MEDS: Cyclobenzaprine 10 MG TAB PO PRN (13:34)
[2020-07-30 15:53] VITALS: BP 150/80; TEMP 98.5
--- NOTE | 2020-07-30 18:57 | DIS ---
DATE OF ADMISSION: 07/17/2020 DATE OF DISCHARGE: 07/30/2020 This is Renetta Michaud NP dictating a report for Kalin Feliciano DO. DISCHARGE ATTENDING: Dr. Feliciano. CONSULTS: 1. Orthopedic Surgery, Dr. Morrison. 2. Nephrology, Dr. Garcia. 3. Gastroenterology, Dr. Quiroz. PROCEDURES: On 07/19/2020, intramedullary nail right femoral shaft fracture. PRIMARY DIAGNOSES: 1. Ground level fall with delayed presentation three days, left femoral condyle fracture, nonoperative. 2. Right femoral shaft fracture, status post repair. 3. Acute kidney injury on chronic kidney disease, improved. 4. Ileus, resolved. SECONDARY DIAGNOSES: Diabetes, hypertension, hyperlipidemia, and depression. DISCHARGE MEDICATIONS: 1. Protonix 40 mg p.o. b.i.d. 2. Maalox as needed. 3. Acetaminophen 325 mg p.o. q.6 hours. 4. Norvasc 5 mg p.o. daily. 5. Tums q.4 hours as needed. 6. Coreg 3.125 mg p.o. b.i.d. with meals. 7. Flexeril 5 mg p.o. 3 times a day as needed for muscle spasms. 8. Escitalopram 10 mg b.i.d. 9. Lexapro 10 mg p.o. b.i.d. 10. Ferrous sulfate 325 mg p.o. b.i.d. with meals. 11. Lasix 40 mg p.o. daily. 12. Lactulose as needed until bowel movement. 13. Zofran 4 mg ODT q.6 hours p.r.n. nausea. 14. MiraLAX as needed for constipation. 15. Senokot as needed for constipation. 16. Heparin 5000 units subcu three times a day for 14 days. VTE prophylaxis. 17. Lantus 20 units subcu at bedtime. 18. DuoNebs as needed. 19. Cozaar 25 mg p.o. daily. 20. Metformin 850 mg p.o. b.i.d. No discontinued medications. HISTORY OF PRESENT ILLNESS AND HOSPITAL COURSE: This is a 74-year-old lady who was brought into the emergency room after falling approximately three days prior. The patient reported continued pain in her left knee since falling. The patient was evaluated and found to have a nondisplaced nonarticular fracture of her femoral condyle of her left knee. Rehab attempted to get the patient placed into inpatient rehab, but were unsuccessful due to insurance and her mobility. It was felt that the patient needed to be admitted for observation and then attempt placement versus crutch training, then home. The patient's pain was controlled. While the patient was pending placement for continued physical and occupational therapy, the patient was being assisted to the restroom when her leg gave out causing her to fall. The patient sustained a midshaft right femur fracture. Orthopedics was reconsulted. The patient was taken to the OR the next day for repair. The patient had several nights and days being confused. The patient was started on Seroquel, which eventually did help. The patient was also started on BiPAP at night, which seemed to really help the patient. The patient was less confused during the day after being on BiPAP at night. The patient did suffer an acute on chronic kidney injury in which nephrology was consulted. The patient also had difficulties swallowing and epigastric pain in which GI, Dr. Quiroz was consulted. The patient did have an upper GI study in which revealed an erosive esophagitis. The patient was placed on IV proton pump inhibitor. On the day of discharge, the patient was examined by Dr. Feliciano. Her exam was unremarkable including cardiopulmonary and GI exam. The patient's GCS was 15. The patient's pain was controlled. The patient had been instructed to be in an upright sitting position when she eats at all times. The patient's vital signs were stable and her exam was unremarkable including cardiopulmonary and GI exam. The patient was deemed stable for discharge to [facility]. DISPOSITION: Stable. DISCHARGE INSTRUCTIONS: 1. Location: [facility]. 2. Diet: Diabetic diet, supplement with Ensure 3 times a day. 3. Activity: Orthopedic limitations, partial weightbearing right lower extremity. 4. Followup: Follow up with Orthopedic Surgery, Dr. Wilhelm in 3 to 4 weeks. Follow up with primary care physician within 7 days. No need to follow up with Trauma Services. Call for any questions. Follow up with JONATHAN, Dr. Quiroz as needed. The plan was discussed with the patient who agrees. This is just a summary of the hospital stay, please see entire medical record for details. Job ID: [id number] [facility]
== END 2020-07-30 18:22 | DRG 480 ==
LOC: ERS 12:06 → ERHOLD 16:25 → SJJU 22:18 → OBSVTOIN 07-17 13:02 → IMCU/EMU 07-23 13:30 → SJJU 07-26 12:34
PROVIDERS: ADMIT Surgery; ATTEND Surgery
PROC: 0QS606Z Reposition Right Upper Femur with Intramedullary Internal Fixation Device, Open Approach (ICD-10-PCS; principal; 2020-07-19)
PROC: 0DB18ZX Excision of Upper Esophagus, Via Natural or Artificial Opening Endoscopic, Diagnostic (ICD-10-PCS; 2020-07-27)
DX: S72.412A Displaced unspecified condyle fracture of lower end of left femur, initial encounter for closed fracture (principal); S72.301A Unspecified fracture of shaft of right femur, initial encounter for closed fracture; J96.01 Acute respiratory failure with hypoxia; Z68.42 Body mass index [BMI] 45.0-49.9, adult; N17.9 Acute kidney failure, unspecified; K56.7 Ileus, unspecified; B37.0 Candidal stomatitis; K22.10 Ulcer of esophagus without bleeding; E78.5 Hyperlipidemia, unspecified; F32.9 Major depressive disorder, single episode, unspecified; Z96.653 Presence of artificial knee joint, bilateral; E11.65 Type 2 diabetes mellitus with hyperglycemia; E66.01 Morbid (severe) obesity due to excess calories; I12.9 Hypertensive chronic kidney disease with stage 1 through stage 4 chronic kidney disease, or unspecified chronic kidney disease; E11.22 Type 2 diabetes mellitus with diabetic chronic kidney disease; K59.00 Constipation, unspecified; N18.30 Chronic kidney disease, stage 3 unspecified; Z90.49 Acquired absence of other specified parts of digestive tract; Z90.710 Acquired absence of both cervix and uterus; R41.0 Disorientation, unspecified; D72.829 Elevated white blood cell count, unspecified; Z79.899 Other long term (current) drug therapy; Z79.4 Long term (current) use of insulin; K21.00 Gastro-esophageal reflux disease with esophagitis, without bleeding; J98.4 Other disorders of lung; M23.8X2 Other internal derangements of left knee
CPT/HCPCS: 36415; 36416; 36430; 70450; 71045; 72170; 74018; 76000; 76770; 80048; 80076; 81001; 82607; 82728; 82746; 83036; 83540; 83550; 83690; 83735; 84100; 84484; 85007; 85025; 85027; 86850; 86900; 86901; 87635; 88305; 88312; 88313; 93005; 93010; 93970; 94640; 94660; 96365; 96375; C1713; C9113; G0378; G0390; J0360; J0690; J1200; J1644; J1815; J1940; J2270; J2405; J2704; J3010; J3475; J3490; J7050; J7620; P9016; U0003

== ENCOUNTER 2021-01-25 04:20 | Inpatient (IN) | payer MEDICARE ==
[2021-01-25 05:07] LABS: #Eosinphils 0.3 thou/uL (0.0-0.7); #Monocytes 0.8 thou/uL (0.11-0.59); #Neutrophils 14.7 thou/uL (1.40-6.50); %Basophils 0.2 % (0.0-1.0); %Eosinophils 1.6 % (0.0-10.0); %Monocytes 4.7 % (0.0-10.0); %Neutrophils 82.5 % (42.0-75.0); Hemoglobin 11.9 g/dL (12.0-16.0); Mean Corpuscular HGB CONC 33.3 g/dL (32.0-36.0); Mean Corpuscular Hemoglobin 31.8 pg (27.0-31.0); Mean Corpuscular Volume 95.6 fL (78.0-98.0); Mean Platelet Volume 10.1 fL (7.4-10.4); Platelet Count 205 thou/uL (130-400); RBC Distribution Width 11.7 % (11.5-14.5); Red Blood Cell (RBC) Count 3.75 mill/uL (4.20-5.40); White Blood Cell (WBC) Count 17.8 thou/uL (4.8-10.8)
[2021-01-25 05:30] LABS: ALT (SGPT) 14 U/L (8-55); AST (SGOT) 14 U/L (5-34); Alkaline Phosphatase 94 U/L (40-110); Anion Gap 15 mmol/L (10-20); BUN (Urea Nitrogen) 30 mg/dL (9.8-20.1); Calc. Creatinine Clearance 0 mL/min (70-130); Calcium 9.6 mg/dL (7.8-10.44); Carbon Dioxide 19 mmol/L (23-31); Chloride 111 mmol/L (98-107); Glucose 276 mg/dL (83-110); Potassium 4.6 mmol/L (3.5-5.1); Sodium 140 mmol/L (136-145)
[2021-01-25 05:55] LABS: CKMB 2.1 ng/mL (0-6.6)
[2021-01-25] MEDS ORDERED: Furosemide 40 MG/4 ML VIAL ONE (06:18)
[2021-01-25] MEDS ORDERED: Acetaminophen 325 MG TAB PO PRN (08:15)
[2021-01-25] MEDS ORDERED: Senokot S 8.6-50 MG TAB PO PRN (08:15)
[2021-01-25] MEDS ORDERED: Bisacodyl 5 MG TAB PO PRN (08:15)
[2021-01-25] MEDS ORDERED: Ondansetron ODT 4 MG TAB PO PRN (08:15)
[2021-01-25] MEDS ORDERED: Calcium Carbonate 500 MG ChewTAB PO PRN (08:16)
[2021-01-25] MEDS ORDERED: Mag-Al 1200 mg/1200 mg/30 ML UDCUP PO PRN (08:16)
[2021-01-25] MEDS ORDERED: Cyclobenzaprine 10 MG TAB PO PRN (08:16)
[2021-01-25] MEDS ORDERED: Dextrose 50% Abboject 50 ML SYRINGE SLOW IVP PRN (08:21)
[2021-01-25] MEDS ORDERED: Dextrose 5% in Water 1,000 ML IV PRN (08:21)
[2021-01-25] MEDS ORDERED: metFORMIN 850 MG TAB PO SCH (09:00)
[2021-01-25] MEDS ORDERED: Heparin 5,000 UNITS/ML VIAL SC SCH (09:00)
[2021-01-25] MEDS ORDERED: Amlodipine 5 MG TAB PO SCH (09:00)
[2021-01-25] MEDS: Polyethylene Glycol 3350 17 GM Packet PO SCH (10:15)
[2021-01-25] MEDS: Losartan 25 MG TAB PO SCH (10:16)
[2021-01-25] MEDS: Escitalopram Oxalate 10 mg Tablet PO SCH ×2 (10:16→20:26)
[2021-01-25 10:40] VITALS: BMI 46.4
[2021-01-25] MEDS ORDERED: Iopamidol-370 76% 500 ML 1 ML ONE (11:23)
[2021-01-25] MEDS: HumaLOG 300 UNITS/3 ML VIAL SC PRN ×2 (11:24→17:51)
[2021-01-25 12:49] LABS: CKMB 5.6 ng/mL (0-6.6)
[2021-01-25] MEDS ORDERED: Aspirin 325 MG TAB PO SCH (13:15)
[2021-01-25] MEDS ORDERED: Heparin 25,000 units/D5W 500 ML IVPB SCH (13:30)
[2021-01-25 13:49] LABS: CKMB 6.8 ng/mL (0-6.6); Troponin I 0.573 ng/mL (< 0.028)
[2021-01-25] MEDS: Furosemide 20 MG/2 ML VIAL SLOW IVP SCH (13:59)
[2021-01-25 14:07] LABS: #Lymphocytes 0.7 thou/uL (1.20-3.40); #Neutrophils 7.6 thou/uL (1.40-6.50); %Eosinophils 0.1 % (0.0-10.0); %Lymphocytes 8.3 % (21.0-51.0); %Monocytes 0.4 % (0.0-10.0); %Neutrophils 91.2 % (42.0-75.0); Hemoglobin 10.8 g/dL (12.0-16.0); Mean Corpuscular HGB CONC 34.4 g/dL (32.0-36.0); Mean Corpuscular Hemoglobin 32.4 pg (27.0-31.0); Mean Platelet Volume 10.1 fL (7.4-10.4); Platelet Count 196 thou/uL (130-400); RBC Distribution Width 11.7 % (11.5-14.5); Red Blood Cell (RBC) Count 3.34 mill/uL (4.20-5.40); White Blood Cell (WBC) Count 8.4 thou/uL (4.8-10.8)
[2021-01-25 15:51] LABS: Hemoglobin A1c 6.7 % (4.0-6.0)
[2021-01-25 16:03] LABS: Cardiac Risk 2.9 (Less than 4.5)
[2021-01-25] MEDS ORDERED: Carvedilol 3.125 MG TAB PO SCH (17:00)
[2021-01-25] MEDS: Carvedilol 6.25 MG TAB PO SCH (17:35)
[2021-01-25] MEDS: Atorvastatin Calcium 40 MG TAB PO SCH (20:26)
[2021-01-25] MEDS: Lantus 1000 UNITS/10 ML VIAL SC SCH (20:54)
[2021-01-25] MEDS: Heparin 10,000 UNITS/ 10 ML VIAL SLOW IVP SCH (21:03)
[2021-01-26 04:40] LABS: Anion Gap 13 mmol/L (10-20); BUN (Urea Nitrogen) 36 mg/dL (9.8-20.1); Calc. Creatinine Clearance 70 mL/min (70-130); Calcium 9.8 mg/dL (7.8-10.44); Carbon Dioxide 21 mmol/L (23-31); Chloride 105 mmol/L (98-107); Glucose 248 mg/dL (83-110); Potassium 4.3 mmol/L (3.5-5.1); Sodium 135 mmol/L (136-145)
[2021-01-26 05:08] LABS: PTT 158.4 sec (22.9-36.1)
[2021-01-26] MEDS: Furosemide 20 MG/2 ML VIAL SLOW IVP SCH (05:57)
[2021-01-26] MEDS: Escitalopram Oxalate 10 mg Tablet PO SCH ×2 (08:56→21:29)
[2021-01-26] MEDS: Carvedilol 6.25 MG TAB PO SCH ×4 (08:56→21:29)
[2021-01-26] MEDS: Polyethylene Glycol 3350 17 GM Packet PO SCH (08:56)
[2021-01-26] MEDS: Losartan 25 MG TAB PO SCH (08:56)
[2021-01-26] MEDS: Aspirin 81 mg Enteric Coated Tablet PO SCH (08:56)
[2021-01-26] MEDS ORDERED: Furosemide 40 MG TAB PO SCH (09:00)
[2021-01-26] MEDS: Insulin Regular 300 UNITS/3 ML VIAL SC SCH ×2 (12:05→16:51)
[2021-01-26] MEDS ORDERED: hydrALAZINE 20 MG/ML VIAL SLOW IVP PRN (13:54)
[2021-01-26 14:00] LABS: SARS-CoV-2 NAA Rapid Test Not Detected (NotDetected)
[2021-01-26] MEDS: Heparin 10,000 UNITS/ 10 ML VIAL SLOW IVP SCH (16:51)
[2021-01-26] MEDS ORDERED: Lisinopril 5 MG TAB PO SCH (21:00)
[2021-01-26] MEDS ORDERED: Amlodipine 10 MG TAB PO SCH (21:00)
[2021-01-26] MEDS: Atorvastatin Calcium 40 MG TAB PO SCH (21:28)
[2021-01-26] MEDS: Lantus 1000 UNITS/10 ML VIAL SC SCH (21:40)
[2021-01-27] MEDS ORDERED: Sodium Chloride 0.9% 1,000 ML IV SCH (06:00)
[2021-01-27] MEDS ORDERED: Lidocaine 1% (PF) 30 ML VIAL ONE (06:43)
[2021-01-27 07:01] LABS: PTT 133.6 sec (22.9-36.1)
[2021-01-27] MEDS ORDERED: Midazolam HCl 2 mg/2 ml Vial ONE (08:34)
[2021-01-27] MEDS ORDERED: Fentanyl 100 MCG/2 ML VIAL ONE (08:34)
[2021-01-27] MEDS: Insulin Regular 300 UNITS/3 ML VIAL SC SCH ×3 (08:47→16:59)
[2021-01-27] MEDS ORDERED: Iopamidol 370 76% 100 ML VIAL ONE (10:46)
[2021-01-27] MEDS: Carvedilol 6.25 MG TAB PO SCH ×3 (11:12→21:04)
[2021-01-27] MEDS: Aspirin 81 mg Enteric Coated Tablet PO SCH (11:12)
[2021-01-27] MEDS: Polyethylene Glycol 3350 17 GM Packet PO SCH (11:13)
[2021-01-27] MEDS: Losartan 25 MG TAB PO SCH (11:13)
[2021-01-27] MEDS: Escitalopram Oxalate 10 mg Tablet PO SCH ×2 (11:13→21:06)
[2021-01-27 12:24] LABS: #Basophils 0.1 thou/uL (0.0-0.2); #Eosinphils 0.4 thou/uL (0.0-0.7); #Lymphocytes 2.9 thou/uL (1.20-3.40); #Neutrophils 6.8 thou/uL (1.40-6.50); %Basophils 0.6 % (0.0-1.0); %Eosinophils 3.9 % (0.0-10.0); %Lymphocytes 25.6 % (21.0-51.0); %Monocytes 8.6 % (0.0-10.0); %Neutrophils 61.4 % (42.0-75.0); Hemoglobin 11.2 g/dL (12.0-16.0); Mean Corpuscular HGB CONC 32.3 g/dL (32.0-36.0); Mean Corpuscular Hemoglobin 31.4 pg (27.0-31.0); Mean Corpuscular Volume 97.2 fL (78.0-98.0); Mean Platelet Volume 11.3 fL (7.4-10.4); Platelet Count 211 thou/uL (130-400); Red Blood Cell (RBC) Count 3.58 mill/uL (4.20-5.40); White Blood Cell (WBC) Count 11.2 thou/uL (4.8-10.8)
[2021-01-27] MEDS: Atorvastatin Calcium 40 MG TAB PO SCH (21:06)
[2021-01-27] MEDS: Lantus 1000 UNITS/10 ML VIAL SC SCH (21:06)
[2021-01-28 05:27] LABS: Anion Gap 14 mmol/L (10-20); BUN (Urea Nitrogen) 39 mg/dL (9.8-20.1); Calc. Creatinine Clearance 72 mL/min (70-130); Calcium 9.2 mg/dL (7.8-10.44); Carbon Dioxide 21 mmol/L (23-31); Chloride 107 mmol/L (98-107); Glucose 118 mg/dL (83-110); Potassium 4.2 mmol/L (3.5-5.1); Sodium 138 mmol/L (136-145)
[2021-01-28] MEDS: Insulin Regular 300 UNITS/3 ML VIAL SC SCH ×2 (08:49→11:50)
[2021-01-28] MEDS: Aspirin 81 mg Enteric Coated Tablet PO SCH (08:50)
[2021-01-28] MEDS: Polyethylene Glycol 3350 17 GM Packet PO SCH (08:50)
[2021-01-28] MEDS: Carvedilol 6.25 MG TAB PO SCH (08:50)
[2021-01-28] MEDS: Escitalopram Oxalate 10 mg Tablet PO SCH (08:50)
[2021-01-28] MEDS: Losartan 25 MG TAB PO SCH (08:50)
[2021-01-28 11:15] VITALS: BP 152/70; TEMP 98.6
== END 2021-01-28 12:17 | disposition home or self-care (01) | DRG 280 ==
LOC: ERS 04:20 → 2NO 06:42
PROVIDERS: ADMIT Student in an Organized Health Care Education/Training Program; ATTEND Internal Medicine
PROC: 4A023N7 Measurement of Cardiac Sampling and Pressure, Left Heart, Percutaneous Approach (ICD-10-PCS; principal; 2021-01-27)
PROC: B2111ZZ Fluoroscopy of Multiple Coronary Arteries using Low Osmolar Contrast (ICD-10-PCS; 2021-01-27)
DX: I13.0 Hypertensive heart and chronic kidney disease with heart failure and stage 1 through stage 4 chronic kidney disease, or unspecified chronic kidney disease (principal); I50.33 Acute on chronic diastolic (congestive) heart failure; I21.A1 Myocardial infarction type 2; J96.01 Acute respiratory failure with hypoxia; Z68.42 Body mass index [BMI] 45.0-49.9, adult; D72.829 Elevated white blood cell count, unspecified; E78.5 Hyperlipidemia, unspecified; F32.9 Major depressive disorder, single episode, unspecified; I25.10 Atherosclerotic heart disease of native coronary artery without angina pectoris; N18.30 Chronic kidney disease, stage 3 unspecified; E66.9 Obesity, unspecified; I44.7 Left bundle-branch block, unspecified; E11.22 Type 2 diabetes mellitus with diabetic chronic kidney disease; Z20.822 Contact with and (suspected) exposure to COVID-19; Z79.82 Long term (current) use of aspirin; Z79.899 Other long term (current) drug therapy; Z79.4 Long term (current) use of insulin; Z90.49 Acquired absence of other specified parts of digestive tract; Z95.4 Presence of other heart-valve replacement; Z90.710 Acquired absence of both cervix and uterus; Z98.890 Other specified postprocedural states
CPT/HCPCS: 36415; 36416; 71045; 71275; 80048; 80053; 80061; 82553; 83036; 83880; 84443; 84484; 85025; 85379; 85652; 85730; 86140; 93005; 93010; 93306; 93458; 93798; 94640; 96374; 99152; J1644; J1815; J1940; J2001; J2250; J3010; J7620; Q9967; U0002; U0003; U0005

== ENCOUNTER 2021-02-04 22:31 | Inpatient (IN) | payer MEDICARE ==
[2021-02-04 23:15] LABS: #Basophils 0.1 thou/uL (0.0-0.2); #Eosinphils 0.5 thou/uL (0.0-0.7); #Lymphocytes 1.9 thou/uL (1.20-3.40); #Monocytes 0.8 thou/uL (0.11-0.59); #Neutrophils 4.6 thou/uL (1.40-6.50); %Basophils 0.7 % (0.0-1.0); %Eosinophils 6.1 % (0.0-10.0); %Lymphocytes 24.5 % (21.0-51.0); %Monocytes 9.7 % (0.0-10.0); %Neutrophils 59.1 % (42.0-75.0); Hemoglobin 10.5 g/dL (12.0-16.0); Mean Corpuscular HGB CONC 34.8 g/dL (32.0-36.0); Mean Corpuscular Volume 94.7 fL (78.0-98.0); Mean Platelet Volume 10.7 fL (7.4-10.4); Platelet Count 189 thou/uL (130-400); Red Blood Cell (RBC) Count 3.17 mill/uL (4.20-5.40); White Blood Cell (WBC) Count 7.8 thou/uL (4.8-10.8)
[2021-02-04 23:37] LABS: ALT (SGPT) 10 U/L (8-55); AST (SGOT) 11 U/L (5-34); Albumin 3.7 g/dL (3.4-4.8); Alkaline Phosphatase 87 U/L (40-110); Anion Gap 16 mmol/L (10-20); BUN (Urea Nitrogen) 37 mg/dL (9.8-20.1); Bilirubin, Total 0.8 mg/dL (0.2-1.2); Calc. Creatinine Clearance 0 mL/min (70-130); Calcium 9.2 mg/dL (7.8-10.44); Carbon Dioxide 20 mmol/L (23-31); Chloride 108 mmol/L (98-107); Globulin 2.8 g/dL (2.4-3.5); Glucose 103 mg/dL (83-110); Protein, Total 6.5 g/dL (5.8-8.1); Sodium 139 mmol/L (136-145)
[2021-02-04 23:59] LABS: CKMB 1.2 ng/mL (0-6.6)
[2021-02-05] MEDS ORDERED: Furosemide 40 MG/4 ML VIAL ONE (01:43)
[2021-02-05] MEDS ORDERED: Aspirin Chewable 81 MG TAB ONE (01:43)
[2021-02-05] MEDS ORDERED: Dextrose 5% in Water 1,000 ML IV PRN (03:50)
[2021-02-05] MEDS ORDERED: Ondansetron ODT 4 MG TAB PO PRN (03:50)
[2021-02-05] MEDS ORDERED: Ondansetron PF 4 MG/2 ML Vial IVP PRN (03:50)
[2021-02-05] MEDS ORDERED: HumaLOG 300 UNITS/3 ML VIAL SC PRN (03:50)
[2021-02-05] MEDS ORDERED: Dextrose 50% Abboject 50 ML SYRINGE SLOW IVP PRN (03:50)
[2021-02-05] MEDS ORDERED: Acetaminophen 325 MG TAB PO PRN (03:50)
[2021-02-05 04:31] VITALS: BMI 45.7
[2021-02-05 05:42] LABS: Troponin I 0.013 ng/mL (< 0.028)
[2021-02-05 08:09] LABS: Troponin I 0.012 ng/mL (< 0.028)
[2021-02-05] MEDS ORDERED: Enoxaparin Sodium 40 MG/0.4 ML SYRINGE SC SCH (09:00)
[2021-02-05] MEDS: Enoxaparin Sodium 40 MG/0.4 ML SYRINGE SC SCH (09:24)
[2021-02-05] MEDS: HumaLOG 300 UNITS/3 ML VIAL SC PRN (12:32)
[2021-02-05 14:03] LABS: SARS-CoV-2 PCR by NAA Not Detected (NotDetected)
[2021-02-05] MEDS: Furosemide 40 MG/4 ML VIAL SLOW IVP SCH (16:34)
[2021-02-05] MEDS: Carvedilol 6.25 MG TAB PO SCH (20:52)
[2021-02-05] MEDS: Lantus 1000 UNITS/10 ML VIAL SC SCH (21:04)
[2021-02-05] MEDS ORDERED: Escitalopram Oxalate 10 mg Tablet PO SCH (23:15)
[2021-02-06 04:40] LABS: #Eosinphils 0.5 thou/uL (0.0-0.7); #Monocytes 0.6 thou/uL (0.11-0.59); #Neutrophils 4.6 thou/uL (1.40-6.50); %Basophils 0.1 % (0.0-1.0); %Eosinophils 6.6 % (0.0-10.0); %Monocytes 7.9 % (0.0-10.0); %Neutrophils 59.3 % (42.0-75.0); Hemoglobin 10.4 g/dL (12.0-16.0); Mean Corpuscular HGB CONC 33.1 g/dL (32.0-36.0); Mean Corpuscular Hemoglobin 31.8 pg (27.0-31.0); Mean Platelet Volume 10.6 fL (7.4-10.4); Platelet Count 191 thou/uL (130-400); RBC Distribution Width 11.9 % (11.5-14.5); Red Blood Cell (RBC) Count 3.26 mill/uL (4.20-5.40); White Blood Cell (WBC) Count 7.8 thou/uL (4.8-10.8)
[2021-02-06 04:54] LABS: Anion Gap 15 mmol/L (10-20); BUN (Urea Nitrogen) 35 mg/dL (9.8-20.1); Calc. Creatinine Clearance 76 mL/min (70-130); Calcium 9.5 mg/dL (7.8-10.44); Carbon Dioxide 26 mmol/L (23-31); Chloride 102 mmol/L (98-107); Glucose 133 mg/dL (83-110); Sodium 139 mmol/L (136-145)
[2021-02-06] MEDS: Furosemide 40 MG/4 ML VIAL SLOW IVP SCH ×2 (05:28→13:05)
[2021-02-06] MEDS: Sodium Chloride 0.9% 10 ML ONE ×2 (09:54→13:05)
[2021-02-06] MEDS: Carvedilol 6.25 MG TAB PO SCH ×2 (09:55→20:01)
[2021-02-06] MEDS: Aspirin Chewable 81 MG TAB PO SCH (09:55)
[2021-02-06] MEDS: Enoxaparin Sodium 40 MG/0.4 ML SYRINGE SC SCH (09:55)
[2021-02-06] MEDS: Escitalopram Oxalate 10 mg Tablet PO SCH (09:56)
[2021-02-06] MEDS: HumaLOG 300 UNITS/3 ML VIAL SC PRN (13:03)
[2021-02-06] MEDS: Lantus 1000 UNITS/10 ML VIAL SC SCH (20:02)
[2021-02-06] MEDS ORDERED: Atorvastatin Calcium 40 MG TAB PO SCH (21:00)
[2021-02-07] MEDS: Furosemide 40 MG/4 ML VIAL SLOW IVP SCH (05:28)
[2021-02-07] MEDS ORDERED: Spironolactone 25 MG TAB PO SCH (08:00)
[2021-02-07] MEDS: Enoxaparin Sodium 40 MG/0.4 ML SYRINGE SC SCH (09:03)
[2021-02-07] MEDS: Carvedilol 6.25 MG TAB PO SCH (09:03)
[2021-02-07] MEDS: Aspirin Chewable 81 MG TAB PO SCH (09:03)
[2021-02-07] MEDS: Escitalopram Oxalate 10 mg Tablet PO SCH (09:04)
[2021-02-07 13:41] VITALS: BP 131/60; TEMP 97.9
== END 2021-02-07 13:55 | disposition home or self-care (01) | DRG 280 ==
LOC: ERS 22:31 → 2NO 02-05 03:12
PROVIDERS: ADMIT Student in an Organized Health Care Education/Training Program; ATTEND Family Medicine
DX: I13.0 Hypertensive heart and chronic kidney disease with heart failure and stage 1 through stage 4 chronic kidney disease, or unspecified chronic kidney disease (principal); I21.4 Non-ST elevation (NSTEMI) myocardial infarction; I50.33 Acute on chronic diastolic (congestive) heart failure; J96.01 Acute respiratory failure with hypoxia; E11.22 Type 2 diabetes mellitus with diabetic chronic kidney disease; I34.0 Nonrheumatic mitral (valve) insufficiency; I44.7 Left bundle-branch block, unspecified; I35.0 Nonrheumatic aortic (valve) stenosis; Z20.822 Contact with and (suspected) exposure to COVID-19; N18.30 Chronic kidney disease, stage 3 unspecified; I25.10 Atherosclerotic heart disease of native coronary artery without angina pectoris; E78.5 Hyperlipidemia, unspecified; Z79.4 Long term (current) use of insulin; Z79.82 Long term (current) use of aspirin; Z79.899 Other long term (current) drug therapy; Z90.49 Acquired absence of other specified parts of digestive tract; Z90.710 Acquired absence of both cervix and uterus; Z90.89 Acquired absence of other organs; Z98.890 Other specified postprocedural states; Z95.2 Presence of prosthetic heart valve
CPT/HCPCS: 36415; 36416; 71045; 80048; 80053; 82553; 83880; 84484; 85025; 93005; 93306; 93798; 93970; 96374; J1650; J1815; J1940; U0003; U0005

== ENCOUNTER 2021-06-08 16:17 | Observation (INO) | payer MEDICARE ==
[2021-06-08 17:10] LABS: #Eosinphils 0.5 thou/uL (0.0-0.7); #Lymphocytes 1.9 thou/uL (1.20-3.40); #Monocytes 0.7 thou/uL (0.11-0.59); %Basophils 0.3 % (0.0-1.0); %Eosinophils 6.6 % (0.0-10.0); %Lymphocytes 26.3 % (21.0-51.0); %Monocytes 10.1 % (0.0-10.0); %Neutrophils 56.7 % (42.0-75.0); Mean Corpuscular HGB CONC 34.8 g/dL (32.0-36.0); Mean Corpuscular Hemoglobin 32.7 pg (27.0-31.0); Mean Corpuscular Volume 94.1 fL (78.0-98.0); Mean Platelet Volume 10.2 fL (7.4-10.4); Platelet Count 171 thou/uL (130-400); RBC Distribution Width 11.9 % (11.5-14.5); Red Blood Cell (RBC) Count 3.37 mill/uL (4.20-5.40); White Blood Cell (WBC) Count 7.1 thou/uL (4.8-10.8)
[2021-06-08] MEDS ORDERED: Nitroglycerin 2% Ointment 1 INCH/1 GM Packet ONE (17:22)
[2021-06-08] MEDS ORDERED: Aspirin Chewable 81 MG TAB ONE (17:23)
[2021-06-08 17:33] LABS: ALT (SGPT) 11 U/L (8-55); AST (SGOT) 14 U/L (5-34); Albumin 3.6 g/dL (3.4-4.8); Alkaline Phosphatase 91 U/L (40-110); Anion Gap 14 mmol/L (10-20); BUN (Urea Nitrogen) 40 mg/dL (9.8-20.1); Bilirubin, Total 0.9 mg/dL (0.2-1.2); Calc. Creatinine Clearance 0 mL/min (70-130); Calcium 9.3 mg/dL (7.8-10.44); Carbon Dioxide 21 mmol/L (23-31); Chloride 108 mmol/L (98-107); Globulin 3.3 g/dL (2.4-3.5); Glucose 208 mg/dL (83-110); Potassium 5.3 mmol/L (3.5-5.1); Protein, Total 6.9 g/dL (5.8-8.1); Sodium 138 mmol/L (136-145)
[2021-06-08] MEDS ORDERED: Furosemide 100 MG/10 ML VIAL ONE (18:52)
[2021-06-08 20:44] LABS: Troponin I 0.035 ng/mL (< 0.028)
[2021-06-08] MEDS ORDERED: Morphine 4 MG/ML VIAL ONE (21:02)
[2021-06-08] MEDS ORDERED: Ondansetron PF 4 MG/2 ML Vial ONE (21:03)
[2021-06-08] MEDS ORDERED: Insulin Regular 300 UNITS/3 ML VIAL SC PRN (22:25)
[2021-06-08] MEDS ORDERED: Dextrose 5% in Water 1,000 ML IV PRN (22:25)
[2021-06-08] MEDS ORDERED: Dextrose 50% Abboject 50 ML SYRINGE SLOW IVP PRN (22:25)
[2021-06-08] MEDS ORDERED: HumaLOG 300 UNITS/3 ML VIAL SC PRN (22:25)
[2021-06-08] MEDS ORDERED: Ondansetron PF 4 MG/2 ML Vial IVP PRN (22:26)
[2021-06-08] MEDS ORDERED: Acetaminophen 325 MG TAB PO PRN (22:26)
[2021-06-08] MEDS ORDERED: Senokot S 8.6-50 MG TAB PO PRN (22:26)
[2021-06-08] MEDS ORDERED: Ondansetron ODT 4 MG TAB PO PRN (22:26)
[2021-06-08 22:47] LABS: Magnesium 1.9 mg/dL (1.6-2.6)
[2021-06-09 00:01] LABS: Troponin I 0.035 ng/mL (< 0.028)
[2021-06-09 01:04] LABS: Bacteria/HPF 1+ HPF (None Seen); Bilirubin Negative (Negative); Blood, Urine Negative (Negative); Clarity Clear (Clear); Glucose, Urine (Dipstick) Normal (Negative); Ketone, Urine Negative (Negative); Leukocyte Negative Leu/uL (Negative); Nitrite Negative (Negative); Protein, Urine (Dipstick) Negative (Neg-Trace); RBC/HPF 0-3 HPF (0-3); Specific Gravity, Urine 1.007 (1.002-1.036); Squamous Epithelial 0-3 HPF (0-3); Urobilinogen Normal mg/dL (Less than 2); WBC/HPF 0-3 HPF (0-3)
[2021-06-09 01:05] LABS: Urine Culture Reflex Yes Yes
[2021-06-09 02:15] LABS: SARS-CoV-2 NAA Rapid Test Not Detected (NotDetected)
[2021-06-09 02:28] LABS: #Eosinphils 0.5 thou/uL (0.0-0.7); #Lymphocytes 2.3 thou/uL (1.20-3.40); #Monocytes 0.9 thou/uL (0.11-0.59); %Basophils 0.2 % (0.0-1.0); %Lymphocytes 26.4 % (21.0-51.0); %Monocytes 10.1 % (0.0-10.0); %Neutrophils 57.2 % (42.0-75.0); Hemoglobin 10.1 g/dL (12.0-16.0); Mean Corpuscular HGB CONC 33.7 g/dL (32.0-36.0); Mean Corpuscular Hemoglobin 31.3 pg (27.0-31.0); Mean Platelet Volume 10.2 fL (7.4-10.4); Platelet Count 164 thou/uL (130-400); RBC Distribution Width 11.8 % (11.5-14.5); Red Blood Cell (RBC) Count 3.23 mill/uL (4.20-5.40); White Blood Cell (WBC) Count 8.7 thou/uL (4.8-10.8)
[2021-06-09 02:55] LABS: Troponin I 0.029 ng/mL (< 0.028)
[2021-06-09 03:02] LABS: Hemoglobin A1c 7.2 % (4.0-6.0)
[2021-06-09 03:07] LABS: Anion Gap 14 mmol/L (10-20); BUN (Urea Nitrogen) 39 mg/dL (9.8-20.1); Calc. Creatinine Clearance 70 mL/min (70-130); Calcium 9.4 mg/dL (7.8-10.44); Carbon Dioxide 22 mmol/L (23-31); Cardiac Risk 3.5 (Less than 4.5); Chloride 108 mmol/L (98-107); Cholesterol 107 mg/dl (< 200 Desired); Glucose 176 mg/dL (83-110); HDL Cholesterol 31 mg/dL (>60 Neg Risk); LDL Cholesterol, Calculated 55 mg/dL; Potassium 4.9 mmol/L (3.5-5.1); Sodium 139 mmol/L (136-145); Triglycerides 104 mg/dL (Less than 150)
[2021-06-09] MEDS: Furosemide 40 MG/4 ML VIAL SLOW IVP SCH ×2 (06:02→13:30)
[2021-06-09] MEDS: HumaLOG 300 UNITS/3 ML VIAL SC PRN ×3 (06:06→17:15)
[2021-06-09] MEDS ORDERED: GUAIFENESIN SF SOLN 200 MG/10 ML UDCUP PO PRN (06:32)
[2021-06-09] MEDS ORDERED: Cepastat Lozenges 1 LOZ PO PRN (06:32)
[2021-06-09] MEDS ORDERED: Calcium Carbonate 500 MG ChewTAB PO PRN (06:32)
[2021-06-09] MEDS ORDERED: Bisacodyl 5 MG TAB PO PRN (06:32)
[2021-06-09] MEDS ORDERED: Sodium Chloride 0.65% Nasal 44 ML BOT EA NARE PRN (06:32)
[2021-06-09] MEDS ORDERED: Loratadine 10 MG TAB PO PRN (06:32)
[2021-06-09] MEDS ORDERED: HYDROcodone/Acetaminophen 5/325 mg Tablet PO PRN (06:32)
[2021-06-09] MEDS ORDERED: Hydrocerin (Eucerin) Cream 120 gm Jar TOP PRN (06:32)
[2021-06-09] MEDS ORDERED: Artificial Tear Sol 15 ML BOT EA EYE PRN (06:32)
[2021-06-09] MEDS ORDERED: Melatonin 3 MG TAB PO PRN (06:32)
[2021-06-09] MEDS ORDERED: Loperamide HCl 2 MG CAP PO PRN (06:32)
[2021-06-09] MEDS: hydrALAZINE 20 MG/ML VIAL SLOW IVP PRN ×2 (08:20→14:53)
[2021-06-09] MEDS: Famotidine 20 MG TAB PO SCH ×2 (08:21→20:41)
[2021-06-09] MEDS: Enoxaparin Sodium 40 MG/0.4 ML SYRINGE SC SCH (08:21)
[2021-06-09 09:58] VITALS: BMI 47.4
[2021-06-09] MEDS ORDERED: hydrALAZINE 25 MG TAB PO SCH (16:30)
[2021-06-09] MEDS: HumaLOG 300 UNITS/3 ML VIAL SC SCH (17:15)
[2021-06-09] MEDS: Nateglinide 120 MG TAB PO SCH (17:16)
[2021-06-09] MEDS: hydrALAZINE 25 MG TAB PO SCH (20:43)
[2021-06-09] MEDS ORDERED: Lantus 1000 UNITS/10 ML VIAL SC SCH (21:00)
[2021-06-09] MEDS ORDERED: Atorvastatin Calcium 40 MG TAB PO SCH (21:00)
[2021-06-10] MEDS: Furosemide 40 MG/4 ML VIAL SLOW IVP SCH (05:54)
[2021-06-10] MEDS: Nateglinide 120 MG TAB PO SCH (06:43)
[2021-06-10] MEDS: HumaLOG 300 UNITS/3 ML VIAL SC SCH (06:45)
[2021-06-10 07:56] VITALS: BP 154/70; TEMP 98.4
[2021-06-10] MEDS ORDERED: Losartan 25 MG TAB PO SCH (09:00)
[2021-06-10] MEDS ORDERED: Escitalopram Oxalate 10 mg Tablet PO SCH (09:00)
[2021-06-10] MEDS ORDERED: Aspirin Chewable 81 MG TAB PO SCH (09:00)
[2021-06-10] MEDS: Enoxaparin Sodium 40 MG/0.4 ML SYRINGE SC SCH (09:11)
[2021-06-10] MEDS: hydrALAZINE 25 MG TAB PO SCH (09:13)
[2021-06-10] MEDS: Famotidine 20 MG TAB PO SCH (09:13)
== END 2021-06-10 10:27 | disposition home or self-care (01) ==
LOC: ERS 16:17 → 2SW 21:48
PROVIDERS: ADMIT Student in an Organized Health Care Education/Training Program; ATTEND Internal Medicine
DX: I13.0 Hypertensive heart and chronic kidney disease with heart failure and stage 1 through stage 4 chronic kidney disease, or unspecified chronic kidney disease (principal); E11.22 Type 2 diabetes mellitus with diabetic chronic kidney disease; N18.30 Chronic kidney disease, stage 3 unspecified; I50.33 Acute on chronic diastolic (congestive) heart failure; D63.1 Anemia in chronic kidney disease; N17.9 Acute kidney failure, unspecified; E87.6 Hypokalemia; R77.8 Other specified abnormalities of plasma proteins; R00.1 Bradycardia, unspecified; E78.5 Hyperlipidemia, unspecified; I25.10 Atherosclerotic heart disease of native coronary artery without angina pectoris; I25.2 Old myocardial infarction; E66.01 Morbid (severe) obesity due to excess calories; Z68.42 Body mass index [BMI] 45.0-49.9, adult; Z20.822 Contact with and (suspected) exposure to COVID-19; Z79.4 Long term (current) use of insulin; Z79.82 Long term (current) use of aspirin; Z79.899 Other long term (current) drug therapy; Z95.2 Presence of prosthetic heart valve; Z95.5 Presence of coronary angioplasty implant and graft; Z90.49 Acquired absence of other specified parts of digestive tract; Z90.710 Acquired absence of both cervix and uterus; Z98.890 Other specified postprocedural states; Z79.84 Long term (current) use of oral hypoglycemic drugs; Z99.3 Dependence on wheelchair
CPT/HCPCS: 71045; 80048; 80053; 80061; 81001; 82962 ×2; 83036; 83735; 83880; 84484 ×3; 85025 ×2; 87086; 93005; 93970; 94760; 96372 ×2; 96374; 96375 ×2; 96376 ×2; 97139; 97530; 97535; 99285; G0378 ×4; U0002; 36415; 36416; 93010; J0360; J1650; J1815; J1940; J2270; J2405

== ENCOUNTER 2021-07-05 01:47 | Inpatient (IN) | payer MEDICARE ==
[2021-07-05 02:28] LABS: #Eosinphils 0.4 thou/uL (0.0-0.7); #Lymphocytes 1.3 thou/uL (1.20-3.40); #Monocytes 0.7 thou/uL (0.11-0.59); #Neutrophils 6.8 thou/uL (1.40-6.50); %Basophils 0.2 % (0.0-1.0); %Eosinophils 4.3 % (0.0-10.0); %Lymphocytes 14.4 % (21.0-51.0); %Monocytes 7.1 % (0.0-10.0); %Neutrophils 73.9 % (42.0-75.0); Hemoglobin 10.8 g/dL (12.0-16.0); Mean Corpuscular HGB CONC 34.1 g/dL (32.0-36.0); Mean Corpuscular Hemoglobin 32.7 pg (27.0-31.0); Mean Corpuscular Volume 95.9 fL (78.0-98.0); Mean Platelet Volume 9.5 fL (7.4-10.4); Platelet Count 181 thou/uL (130-400); RBC Distribution Width 11.9 % (11.5-14.5); Red Blood Cell (RBC) Count 3.31 mill/uL (4.20-5.40); White Blood Cell (WBC) Count 9.3 thou/uL (4.8-10.8)
[2021-07-05 02:40] LABS: ALT (SGPT) 12 U/L (8-55); AST (SGOT) 11 U/L (5-34); Albumin 3.5 g/dL (3.4-4.8); Alkaline Phosphatase 92 U/L (40-110); Anion Gap 12 mmol/L (10-20); BUN (Urea Nitrogen) 29 mg/dL (9.8-20.1); Bilirubin, Total 0.8 mg/dL (0.2-1.2); Calc. Creatinine Clearance 0 mL/min (70-130); Calcium 9.4 mg/dL (7.8-10.44); Carbon Dioxide 22 mmol/L (23-31); Chloride 112 mmol/L (98-107); Glucose 193 mg/dL (83-110); Potassium 4.8 mmol/L (3.5-5.1); Protein, Total 6.5 g/dL (5.8-8.1); Sodium 141 mmol/L (136-145)
[2021-07-05 03:03] LABS: CKMB 2.3 ng/mL (0-6.6)
[2021-07-05] MEDS ORDERED: hydrALAZINE 20 MG/ML VIAL ONE (03:10)
[2021-07-05] MEDS ORDERED: Lorazepam 2 MG/ML VIAL ONE (03:54)
[2021-07-05] MEDS ORDERED: Furosemide 40 MG/4 ML VIAL ONE (03:54)
[2021-07-05] MEDS ORDERED: Ondansetron PF 4 MG/2 ML Vial IVP PRN (05:06)
[2021-07-05] MEDS ORDERED: Dextrose 50% Abboject 50 ML SYRINGE SLOW IVP PRN (05:09)
[2021-07-05] MEDS ORDERED: Dextrose 5% in Water 1,000 ML IV PRN (05:09)
[2021-07-05] MEDS ORDERED: Nitroglycerin 50 MG/250 ML BOT 250 ML ONE (05:11)
[2021-07-05 06:05] LABS: SARS-CoV-2 NAA Rapid Test Not Detected (NotDetected)
[2021-07-05 08:46] VITALS: BMI 48.3
[2021-07-05] MEDS: hydrALAZINE 25 MG TAB PO SCH ×3 (08:53→20:41)
[2021-07-05] MEDS: Carvedilol 3.125 MG TAB PO SCH ×2 (08:54→17:27)
[2021-07-05] MEDS: Losartan 25 MG TAB PO SCH (08:54)
[2021-07-05] MEDS: Heparin 5,000 UNITS/ML VIAL SC SCH ×3 (08:54→20:41)
[2021-07-05] MEDS: hydrALAZINE 20 MG/ML VIAL SLOW IVP PRN (10:44)
[2021-07-05] MEDS: HumaLOG 300 UNITS/3 ML VIAL SC PRN ×3 (11:14→20:42)
[2021-07-05] MEDS: Furosemide 40 MG/4 ML VIAL SLOW IVP SCH (14:49)
[2021-07-05] MEDS: Acetaminophen 325 MG TAB PO PRN ×2 (15:04→23:17)
[2021-07-05] MEDS: Acetaminophen/Codeine 30-300mg Tablet PO PRN (17:23)
[2021-07-06] MEDS ORDERED: diphenhydrAMINE 25 MG CAP PO SCH (02:00)
[2021-07-06] MEDS: hydrALAZINE 20 MG/ML VIAL SLOW IVP PRN (03:53)
[2021-07-06 04:07] LABS: #Eosinphils 0.4 thou/uL (0.0-0.7); #Lymphocytes 2.2 thou/uL (1.20-3.40); #Monocytes 0.8 thou/uL (0.11-0.59); #Neutrophils 4.4 thou/uL (1.40-6.50); %Basophils 0.5 % (0.0-1.0); %Eosinophils 4.7 % (0.0-10.0); %Lymphocytes 28.8 % (21.0-51.0); %Monocytes 9.7 % (0.0-10.0); %Neutrophils 56.3 % (42.0-75.0); Hemoglobin 9.7 g/dL (12.0-16.0); Mean Corpuscular HGB CONC 33.1 g/dL (32.0-36.0); Mean Corpuscular Volume 96.5 fL (78.0-98.0); Mean Platelet Volume 9.7 fL (7.4-10.4); Platelet Count 169 thou/uL (130-400); RBC Distribution Width 12.1 % (11.5-14.5); Red Blood Cell (RBC) Count 3.03 mill/uL (4.20-5.40); White Blood Cell (WBC) Count 7.7 thou/uL (4.8-10.8)
[2021-07-06 04:21] LABS: Anion Gap 14 mmol/L (10-20); BUN (Urea Nitrogen) 29 mg/dL (9.8-20.1); Calc. Creatinine Clearance 74 mL/min (70-130); Calcium 9.3 mg/dL (7.8-10.44); Carbon Dioxide 20 mmol/L (23-31); Chloride 109 mmol/L (98-107); Glucose 123 mg/dL (83-110); Sodium 139 mmol/L (136-145)
[2021-07-06] MEDS ORDERED: hydrALAZINE 25 MG TAB PO SCH (05:44)
[2021-07-06] MEDS: Furosemide 40 MG/4 ML VIAL SLOW IVP SCH ×2 (06:12→15:14)
[2021-07-06] MEDS: Losartan 25 MG TAB PO SCH (09:19)
[2021-07-06] MEDS: Carvedilol 3.125 MG TAB PO SCH ×2 (09:20→16:26)
[2021-07-06] MEDS: Heparin 5,000 UNITS/ML VIAL SC SCH ×3 (09:20→20:41)
[2021-07-06] MEDS: HumaLOG 300 UNITS/3 ML VIAL SC PRN ×3 (11:11→20:43)
[2021-07-06] MEDS ORDERED: NIFEdipine XL 60 MG TAB PO SCH (15:00)
[2021-07-06] MEDS: Acetaminophen/Codeine 30-300mg Tablet PO PRN (18:01)
[2021-07-07 05:13] LABS: #Eosinphils 0.5 thou/uL (0.0-0.7); #Lymphocytes 1.6 thou/uL (1.20-3.40); #Monocytes 0.6 thou/uL (0.11-0.59); #Neutrophils 3.7 thou/uL (1.40-6.50); %Basophils 0.4 % (0.0-1.0); %Eosinophils 7.1 % (0.0-10.0); %Lymphocytes 24.6 % (21.0-51.0); %Monocytes 9.7 % (0.0-10.0); %Neutrophils 58.3 % (42.0-75.0); Hemoglobin 9.6 g/dL (12.0-16.0); Mean Corpuscular HGB CONC 33.4 g/dL (32.0-36.0); Mean Corpuscular Hemoglobin 31.9 pg (27.0-31.0); Mean Corpuscular Volume 95.6 fL (78.0-98.0); Mean Platelet Volume 9.8 fL (7.4-10.4); Platelet Count 168 thou/uL (130-400); RBC Distribution Width 11.9 % (11.5-14.5); Red Blood Cell (RBC) Count 2.99 mill/uL (4.20-5.40); White Blood Cell (WBC) Count 6.4 thou/uL (4.8-10.8)
[2021-07-07 05:35] LABS: Anion Gap 12 mmol/L (10-20); BUN (Urea Nitrogen) 33 mg/dL (9.8-20.1); Calc. Creatinine Clearance 65 mL/min (70-130); Calcium 9.1 mg/dL (7.8-10.44); Carbon Dioxide 23 mmol/L (23-31); Chloride 107 mmol/L (98-107); Glucose 187 mg/dL (83-110); Sodium 138 mmol/L (136-145)
[2021-07-07] MEDS: HumaLOG 300 UNITS/3 ML VIAL SC PRN ×4 (06:27→16:41)
[2021-07-07] MEDS: Furosemide 40 MG TAB PO SCH (07:31)
[2021-07-07] MEDS: Carvedilol 3.125 MG TAB PO SCH ×2 (07:31→16:25)
[2021-07-07] MEDS: Losartan 25 MG TAB PO SCH (08:44)
[2021-07-07] MEDS: NIFEdipine XL 60 MG TAB PO SCH (08:48)
[2021-07-07] MEDS: Heparin 5,000 UNITS/ML VIAL SC SCH ×3 (08:49→20:05)
[2021-07-07] MEDS: diphenhydrAMINE 25 MG CAP PO PRN (16:25)
[2021-07-07] MEDS: hydrALAZINE 20 MG/ML VIAL SLOW IVP PRN (23:36)
[2021-07-08 03:49] LABS: #Eosinphils 0.5 thou/uL (0.0-0.7); #Lymphocytes 1.7 thou/uL (1.20-3.40); #Monocytes 0.5 thou/uL (0.11-0.59); #Neutrophils 4.1 thou/uL (1.40-6.50); %Basophils 0.5 % (0.0-1.0); %Lymphocytes 25.2 % (21.0-51.0); %Monocytes 7.5 % (0.0-10.0); %Neutrophils 59.8 % (42.0-75.0); Mean Corpuscular HGB CONC 32.7 g/dL (32.0-36.0); Mean Corpuscular Hemoglobin 31.5 pg (27.0-31.0); Mean Corpuscular Volume 96.2 fL (78.0-98.0); Mean Platelet Volume 9.9 fL (7.4-10.4); Platelet Count 171 thou/uL (130-400); RBC Distribution Width 12.1 % (11.5-14.5); Red Blood Cell (RBC) Count 3.18 mill/uL (4.20-5.40); White Blood Cell (WBC) Count 6.8 thou/uL (4.8-10.8)
[2021-07-08 04:09] LABS: Anion Gap 15 mmol/L (10-20); BUN (Urea Nitrogen) 36 mg/dL (9.8-20.1); Calc. Creatinine Clearance 63 mL/min (70-130); Calcium 9.6 mg/dL (7.8-10.44); Carbon Dioxide 20 mmol/L (23-31); Chloride 107 mmol/L (98-107); Glucose 152 mg/dL (83-110); Potassium 4.1 mmol/L (3.5-5.1); Sodium 138 mmol/L (136-145)
[2021-07-08] MEDS: HumaLOG 300 UNITS/3 ML VIAL SC PRN ×2 (08:03→13:06)
[2021-07-08] MEDS: NIFEdipine XL 60 MG TAB PO SCH (08:03)
[2021-07-08] MEDS: Carvedilol 3.125 MG TAB PO SCH (08:04)
[2021-07-08] MEDS: Losartan 25 MG TAB PO SCH (08:04)
[2021-07-08] MEDS: Furosemide 40 MG TAB PO SCH (08:04)
[2021-07-08] MEDS: Heparin 5,000 UNITS/ML VIAL SC SCH (08:05)
[2021-07-08] MEDS: diphenhydrAMINE 25 MG CAP PO PRN (09:47)
[2021-07-08 12:43] VITALS: BP 145/68
[2021-07-08 16:04] VITALS: TEMP 98.2
== END 2021-07-08 16:25 | disposition home health service (06) | DRG 291 ==
LOC: ERS 01:47 → CCU 05:24
PROVIDERS: ADMIT Internal Medicine; ATTEND Internal Medicine
DX: I13.0 Hypertensive heart and chronic kidney disease with heart failure and stage 1 through stage 4 chronic kidney disease, or unspecified chronic kidney disease (principal); I50.33 Acute on chronic diastolic (congestive) heart failure; J96.21 Acute and chronic respiratory failure with hypoxia; I16.1 Hypertensive emergency; Z68.42 Body mass index [BMI] 45.0-49.9, adult; E78.5 Hyperlipidemia, unspecified; I25.10 Atherosclerotic heart disease of native coronary artery without angina pectoris; Z20.822 Contact with and (suspected) exposure to COVID-19; F32.A Depression, unspecified; I16.0 Hypertensive urgency; D63.1 Anemia in chronic kidney disease; N18.9 Chronic kidney disease, unspecified; E66.01 Morbid (severe) obesity due to excess calories; E11.22 Type 2 diabetes mellitus with diabetic chronic kidney disease; Z79.4 Long term (current) use of insulin; Z79.899 Other long term (current) drug therapy; Z79.82 Long term (current) use of aspirin; Z90.710 Acquired absence of both cervix and uterus; Z90.49 Acquired absence of other specified parts of digestive tract; I25.2 Old myocardial infarction; Z91.14 Patient's other noncompliance with medication regimen
CPT/HCPCS: 36415; 36416; 71045; 80048; 80053; 82553; 83880; 84484; 85025; 93005; 93306; 94660; 96374; 96375; J0360; J1644; J1815; J1940; J2060; J2405; U0002